=== PATIENT | female | born 1975 | race Caucasian/White ===

== ENCOUNTER 2023-05-20 06:54 | Outpatient (OUT) | payer OTHER, SELFPAY ==
[2023-05-20 07:40] LABS: Basophils Percent Auto 0.7 % (0.2-2.0); Eosinophils Absolute Auto 0.3 10^3/uL (0.0-0.7); Eosinophils Percent Auto 6.1 % (0.9-7.0); Hematocrit 38.4 % (36.0-48.0); Hemoglobin 12.1 g/dL (12.0-16.0); Immature Granulocytes Abs Auto 0.01 10^3/uL (0.00-0.03); Immature Granulocytes Pct Auto 0.2 % (0.0-0.5); Lymphocytes Absolute Auto 1.9 10^3/uL (1.2-3.8); Lymphocytes Percent Auto 44.8 % (20.5-60.0); Mean Corpuscular HGB Conc 31.5 g/dL (29.9-35.2); Mean Corpuscular Hemoglobin 27.6 pg (26.7-34.0); Mean Corpuscular Volume 87.5 fL (81.0-99.0); Monocytes Absolute Auto 0.4 10^3/uL (0.3-0.8); Monocytes Percent Auto 8.7 % (1.7-12.0); Neutrophils Absolute Auto 1.6 10^3/uL (1.4-6.5); Neutrophils Percent Auto 39.5 % (43.0-75.0); Platelet Count 226 10^3/uL (150-450); Red Blood Count 4.39 10^6/uL (4.20-5.40); Red Cell Distribution Width 13.2 % (11.0-15.0); White Blood Count 4.1 10^3/uL (4.0-11.0)
[2023-05-20 08:58] LABS: Alanine Aminotransferase 20 U/L (14-59); Albumin Globulin Ratio 1.1; Albumin Level 3.7 g/dL (3.4-5.0); Alkaline Phosphatase 91 U/L (46-116); Anion Gap 13.9; Aspartate Amino Transferase 18 U/L (15-37); BUN Creatinine Ratio 25.5; Bilirubin Total 0.5 mg/dL (0.2-1.0); Carbon Dioxide 26.3 mmol/L (21.0-32.0); Chloride 105 mmol/L (98-107); Chol HDL Ratio 2.5; Cholesterol 201 mg/dL (<=200); Estimated GFR (African America >60 (>=60); Estimated GFR (Non-African Ame >60 (>=60); Globulin 3.5 g/dL; Glucose 69 mg/dL (74-106); HDL Cholesterol 79 mg/dL (40-60); Potassium 4.2 mmol/L (3.5-5.1); Sodium 141 mmol/L (136-145); Thyroid Stimulating Hormone 2.513 uIU/mL (0.358-3.740); Total Protein 7.2 g/dL (6.4-8.2); Triglycerides 55 mg/dL (<=150)
[2023-05-23 14:16] LABS: Vitamin B1 (Thiamine), Blood 74.4 nmol/L (66.5-200.0)
== END 2023-05-20 06:55 | disposition home or self-care (01) ==
LOC: LAB 06:54
PROVIDERS: PCP Internal Medicine; Visit Provider Internal Medicine
DX: Z00.00 Encounter for general adult medical examination without abnormal findings (principal)
CPT/HCPCS: 36415; 80053; 80061; 82306; 82607; 82728; 84425; 84443; 85025

== ENCOUNTER 2023-08-25 12:52 | Outpatient (OUT) | payer OTHER, SELFPAY ==
--- NOTE | 2023-08-25 13:05 | US_ITS ---
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 Lobe size: 4.9 x 0.9 x 1.7 cm LEFT LOBE: Heterogeneous echotexture and contains a 15 mm TR 3 nodule within mid body and a 6 mm TR 4 nodule within inferior pole. Incidental colloid cyst within inferior pole. Lobe size: 5.6 x 1.6 x 2.1 cm ISTHMUS: Slightly heterogeneous echotexture. Thickness: 2 mm US/US thyroid IMPRESSION: 1. Heterogeneous echotexture with stable left lobe nodules. Consider follow-up imaging in one year. TR4 (moderately suspicious): If > 1.0 cm, follow-up ultrasound in 1, 2, 3, and 5 years. If > 1.5 cm, fine needle aspiration (FNA). TR3 (mildly suspicious): > 1.5 cm, follow-up ultrasound in 1, 3, and 5 years. > 2.5 cm, fine needle aspiration. Electronically authenticated by: LAURYN ARGUELLO Date: 08/26/2023 01:18
[2023-08-25 13:49] LABS: Free T4 1.25 ng/dL (0.76-1.46)
[2023-08-25 13:56] LABS: Thyroid Stimulating Hormone 1.566 uIU/mL (0.358-3.740)
[2023-08-26 08:11] LABS: Triiodothyronine (T3) 117 ng/dL (71-180)
== END 2023-08-25 12:53 | disposition home or self-care (01) ==
LOC: US 12:52
PROVIDERS: PCP Internal Medicine; Visit Provider Internal Medicine
DX: E07.9 Disorder of thyroid, unspecified (principal); E04.9 Nontoxic goiter, unspecified; E04.2 Nontoxic multinodular goiter
CPT/HCPCS: 36415; 76536; 84439; 84443; 84480

== ENCOUNTER 2024-01-04 10:41 | Emergency (ER) | payer OTHER, SELFPAY ==
[2024-01-04] VITALS (7 sets, daily range): BP systolic 141–185; BP diastolic 77–96; PULSE 66–81; TEMP 37; O2SAT 97–99; BMI 38.1
--- NOTE | 2024-01-04 10:52 | ECG_ITS ---
The [facility] Test Date: 2024-01-04 Pat Name: ARIANE WORTHINGTON Department: Room: - Gender: Female [employer]: : 1975 Requested By: JAMAR ARAGON Order Number: [id number] Reading MD: JAMAR ARAGON Measurements Intervals [place] Rate: 76 P: 55 [place]: 134 QRS: 49 QRSD: 88 T: 51 QT: 394 QTc: 425 Interpretive Statements 1100 Sinus rhythm 1575 with frequent ventricular premature complexes in a pattern of bigeminy 9140 abnormal rhythm ECG No previous ECG available for comparison Electronically Signed On 01-04-2024 23:09:58 EDT by JAMAR ARAGON
--- NOTE | 2024-01-04 10:52 | XR_ITS ---
The [address] [address] Patient Name: ARIANE WORTHINGTON MRN: [id number] date: 1975 Sex: F Assigned Patient Location: ER Current Patient Location: ER Accession/Order Number: [id number] Exam Date: 01/04/2024 11:00 Report Date: 01/04/2024 11:31 At the request of: MELVINA KAPOOR Procedure: XR chest 1V EXAMINATION: XR chest 1V HISTORY: CP COMPARISON: 07/28/2022 TECHNIQUE: AP portable FINDINGS: LUNGS: No significant pulmonary parenchymal abnormalities. VASCULATURE: No increased pulmonary vasculature. PLEURA: No pneumothorax, effusion, or pleural thickening. CARDIAC: No cardiomegaly or cardiac silhouette abnormality. MEDIASTINUM: No visible mass or adenopathy. BONES: No fracture or visible bone lesion. OTHER: Negative. XR/XR chest 1V IMPRESSION: No acute disease. Electronically authenticated by: HERO ESTRADA Date: 01/04/2024 11:31
--- NOTE | 2024-01-04 10:52 | ED.CHESTPAI1 ---
HPI - Chest Pain General Chief Complaint: Chest Pain Stated Complaint: SOB, CHEST PAIN Time Seen by Provider: 01/04/24 10:47 Source: patient Mode of arrival: walk-in Limitations: no limitations History of Present Illness HPI narrative: 48-year-old female presents for chest pain. She has had this pressure in the middle part of her chest continuously for 4 days. She was seen at another hospital emergency department yesterday and had an apparently negative workup. No injury or fever or cough but she does work a physical job. Related Data Home Medications ?Medication ?Instructions ?Recorded ?Confirmed brimonidine 0.2 % eye drops 1 drp ophthalmic (eye) Q8H 01/04/24 01/04/24 latanoprost 0.005 % eye drops 1 drp ophthalmic (eye) DAILY 01/04/24 01/04/24 venlafaxine 50 mg tablet 50 mg PO Q12H 01/04/24 01/04/24 Allergies Allergy/AdvReac Type Severity Reaction Status Date / Time morphine Allergy Severe Verified 01/04/24 10:47 Review of Systems ROS Narrative A ten point review of systems is negative except as noted above. Exam Narrative Exam Narrative: Nurses note and vital signs reviewed and patient is not hypoxic. General: The patient appears well and in no apparent distress. Patient is resting comfortably on cart. Skin: Warm, dry, no pallor noted. There is no rash noted. Head: Normocephalic, atraumatic Eye: Normal conjunctiva, no drainage Ears, Nose, Mouth, and Throat: oral mucosa is moist. Nares patent. Cardiovascular: Regular Rate and Rhythm Respiratory: Patient is in no distress, no accessory muscle use, lungs are clear to auscultation, no wheezing, rales or rhonchi Back: non-tender GI: Soft and nontender Musculoskeletal: The patient has no evidence of calf tenderness, no pitting edema, symmetrical pulses noted bilaterally Neurological: A&O, normal speech Psychiatric: Cooperative Constitutional Vital Signs, click to edit/add: Last Vital Signs Temp 98.6 F 01/04/24 11:06 Pulse 71 01/04/24 11:30 Resp 21 H 01/04/24 11:30 BP 141/85 01/04/24 11:30 Pulse Ox 98 01/04/24 11:30 O2 Del Method Room Air 01/04/24 10:48 Course Vital Signs Vital signs: Vital Signs Pulse Rate 81 01/04/24 10:48 Respiratory Rate 18 01/04/24 10:48 Blood Pressure 185/96 H 01/04/24 10:48 Pulse Oximetry 97 01/04/24 10:48 Oxygen Delivery Method Room Air 01/04/24 10:48 Temperature 98.6 F 01/04/24 11:06 Pulse Rate 71 01/04/24 11:30 Respiratory Rate 21 H 01/04/24 11:30 Blood Pressure 141/85 01/04/24 11:30 Pulse Oximetry 98 01/04/24 11:30 Oxygen Delivery Method Room Air 01/04/24 10:48 MDM - Chest Pain MDM Narrative Medical decision making narrative: Her workup here including CTA chest is negative. Case discussed with Dr. Gar and she will be discharged home, follow-up as an outpatient for further workup. Treatment diagnosis and follow-up were discussed with the patient. Differential Diagnosis Differential diagnosis: Likely pneumothorax, unstable angina pectoris, atypical chest pain, st elevation myocardial infarction, costochondritis and chest pain Lab Data Attestation: I reviewed the patient's lab results. Labs: Lab Results 01/04/24 Range/Units 10:55 WBC 6.1 (4.0-11.0) 10^3/uL RBC 4.64 (4.20-5.40) 10^6/uL Hgb 13.3 (12.0-16.0) g/dL Hct 41.3 (36.0-48.0) % MCV 89.0 (81.0-99.0) fL MCH 28.7 (26.7-34.0) pg MCHC 32.2 (29.9-35.2) g/dL RDW 12.6 (11.0-15.0) % Plt Count 235 (150-450) 10^3/uL MPV 10.5 (9.5-13.5) fL Neut % (Auto) 52.9 (43.0-75.0) % Lymph % (Auto) 35.9 (20.5-60.0) % [place] % (Auto) 5.9 (1.7-12.0) % Eos % (Auto) 4.4 (0.9-7.0) % Baso % (Auto) 0.7 (0.2-2.0) % Neut # (Auto) 3.3 (1.4-6.5) 10^3/uL Lymph # (Auto) 2.2 (1.2-3.8) 10^3/uL [place] # (Auto) 0.4 (0.3-0.8) 10^3/uL Eos # (Auto) 0.3 (0.0-0.7) 10^3/uL Baso # (Auto) 0.0 (0.0-0.1) 10^3/uL Abs Immat Gran (auto) 0.01 (0.00-0.03) 10^3/uL Imm/Tot Granulo (auto) 0.2 (0.0-0.5) % Sodium 142 (136-145) mmol/L Potassium 4.1 (3.5-5.1) mmol/L Chloride 107 (98-107) mmol/L Carbon Dioxide 27.1 (21.0-32.0) mmol/L Anion Gap 12.0 BUN 9.0 (7.0-18.0) mg/dL Creatinine 0.65 (0.55-1.02) mg/dL Est GFR ( Amer) >60 (>=60) Est GFR (Non-Af Amer) >60 (>=60) BUN/Creatinine Ratio 13.8 Glucose 78 (74-106) mg/dL Calcium 9.4 (8.5-10.1) mg/dL Troponin I High Sens 9.4 (4.0-51.3) pg/mL Imaging Data Chest x-ray: Radiologist's impression: ITS Impressions Chest X-Ray 01/04/24 10:52 IMPRESSION: No acute disease. Electronically authenticated by: HERO ESTRADA Date: 01/04/2024 11:31 Chest CTA 01/04/24 11:29 IMPRESSION: 1. No pulmonary embolism. Electronically authenticated by: LENNIE VALERA Date: 01/04/2024 12:24 ECG Data Attestation: I personally reviewed and interpreted this ECG as follows: (EKG on my interpretation shows sinus rhythm with PVCs, bigeminy) Heart Score History: Moderately Suspicious ECG: Normal Age: >45-<65 years Risk Factors: 1 or 2 Risk Factors Troponin: <Normal Limit Total Heart Score Recommendations & Risks:: 3 Discharge Plan Discharge Stand Alone Forms: Portal Instructions Chief Complaint: Chest Pain Clinical Impression: Chest pain Patient Disposition: Home, Self-Care Time of Disposition Decision: 12:33 Condition: Good Mode of Transportation: Private Vehicle Prescriptions / Home Meds: No Action brimonidine 0.2 % drops 1 drp OPHTHALMIC (EYE) Q8H latanoprost 0.005 % drops 1 drp OPHTHALMIC (EYE) DAILY venlafaxine 50 mg tablet 50 mg PO Q12H Print Language: Italian Instructions: Chest Pain (ED) Referrals: Gilles Gar DO [Primary Care Provider] - 1 week
--- NOTE | 2024-01-04 11:02 | PC.NURSE ---
centered chest pain since wednesday constantly. Was evaluated in [place] ER yesterday for this and was found to have nothing wrong. Per pt, she got labs done, EKG and chest XR. Today she saw her PCP, Dr Gar, who ordered an outpt Chest CT but is waiting for insurance to approve. Pt also feels some SOB with the chest pain. 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
[2024-01-04 11:11] LABS: Basophils Percent Auto 0.7 % (0.2-2.0); Eosinophils Absolute Auto 0.3 10^3/uL (0.0-0.7); Eosinophils Percent Auto 4.4 % (0.9-7.0); Hematocrit 41.3 % (36.0-48.0); Hemoglobin 13.3 g/dL (12.0-16.0); Immature Granulocytes Abs Auto 0.01 10^3/uL (0.00-0.03); Immature Granulocytes Pct Auto 0.2 % (0.0-0.5); Lymphocytes Absolute Auto 2.2 10^3/uL (1.2-3.8); Lymphocytes Percent Auto 35.9 % (20.5-60.0); Mean Corpuscular HGB Conc 32.2 g/dL (29.9-35.2); Mean Corpuscular Hemoglobin 28.7 pg (26.7-34.0); Mean Platelet Volume 10.5 fL (9.5-13.5); Monocytes Absolute Auto 0.4 10^3/uL (0.3-0.8); Monocytes Percent Auto 5.9 % (1.7-12.0); Neutrophils Absolute Auto 3.3 10^3/uL (1.4-6.5); Neutrophils Percent Auto 52.9 % (43.0-75.0); Platelet Count 235 10^3/uL (150-450); Red Blood Count 4.64 10^6/uL (4.20-5.40); Red Cell Distribution Width 12.6 % (11.0-15.0); White Blood Count 6.1 10^3/uL (4.0-11.0)
--- NOTE | 2024-01-04 11:29 | CT_ITS ---
The [address] [address] Patient Name: ARIANE WORTHINGTON MRN: [id number] date: 1975 Sex: F Assigned Patient Location: ER Current Patient Location: ER Accession/Order Number: [id number] Exam Date: 01/04/2024 11:35 Report Date: 01/04/2024 12:24 At the request of: MELVINA KAPOOR Procedure: CT angio chest EXAM: CT angio chest HISTORY: CP, SOB COMPARISON: None. TECHNIQUE: Following intravenous administration of 98 cc of Omnipaque 350, axial soft tissue and lung windows of the chest were performed with coronal and sagittal reformats. 3-D MIPS reconstructions were created and reviewed. CT dose reduction technique was used including Automated Exposure Control. Findings: The heart is not significantly enlarged. There are coronary artery calcifications. No pericardial effusion. The thoracic aorta is normal caliber. There is adequate opacification of the pulmonary arteries. No evidence of pulmonary embolism. There is a small diverticulum off the right posterior lateral wall the distal trachea. The central airways are patent. No pneumothorax. No pleural effusion. No focal consolidation. No enlarged mediastinal, hilar, axillary or supraclavicular lymph nodes. Postsurgical changes consistent with gastric bypass. No aggressive sclerotic or lytic osseous lesions. Mild multilevel degenerative thoracic spondylosis. CT/CT angio chest IMPRESSION: 1. No pulmonary embolism. Electronically authenticated by: LENNIE VALERA Date: 01/04/2024 12:24
[2024-01-04 11:41] LABS: BUN Creatinine Ratio 13.8; Calcium 9.4 mg/dL (8.5-10.1); Carbon Dioxide 27.1 mmol/L (21.0-32.0); Chloride 107 mmol/L (98-107); Estimated GFR (African America >60 (>=60); Estimated GFR (Non-African Ame >60 (>=60); Glucose 78 mg/dL (74-106); Potassium 4.1 mmol/L (3.5-5.1); Sodium 142 mmol/L (136-145); Troponin I High Sensitivity 9.4 pg/mL (4.0-51.3)
== END 2024-01-04 12:40 | disposition home or self-care (01) ==
PROVIDERS: Emergency Provider Emergency Medicine; PCP Internal Medicine
DX: R07.9 Chest pain, unspecified (principal); Z79.899 Other long term (current) drug therapy
CPT/HCPCS: 36415; 71045; 71275; 80048; 84484; 85025; 93005; 99285; Q9967

== ENCOUNTER 2024-01-18 13:56 | Outpatient (OUT) | payer OTHER, SELFPAY ==
--- NOTE | 2024-01-18 14:00 | CA_ITS ---
Patient Name: ARIANE WORTHINGTON MR#: [id number] : 1975 Exam Date: 01/18/2024 Ordering Doctor: DR Gilles Gar D.O. ECHOCARDIOGRAM REPORT PROCEDURE: CA ECHO DOPPLER COMPLETE INDICATIONS: Chest pain, dyspnea COMPARISON: None. DESCRIPTION: COMPLETE ECHOCARDIOGRAM Real-time transthoracic echocardiography with 2D, M-mode, spectral and color flow Doppler performed. QUALITY: Technical quality was good. 64 , 215#, BSA 2.02 m2, BP 104/80 LEFT VENTRICLE: Normal chamber size. Normal left ventricular wall thickness. LV EF: Global left ventricular systolic function is normal; visually estimated ejection fraction is 60 to 65% DIASTOLIC: Normal diastolic function. ATRIAL SEPTUM: Visually appears intact. LEFT ATRIUM: Normal chamber size. RIGHT ATRIUM: Normal chamber size. RIGHT VENTRICLE: Normal chamber size. Normal right ventricular systolic function. TRICUSPID VALVE: Normal mobility and thickness. No stenosis with no regurgitation. Unable to assess right-sided pressures due to lack of measurable tricuspid regurgitation. MITRAL VALVE: Normal mobility and thickness. No evidence of mitral valve stenosis. There is no mitral annular calcification. Trivial mitral regurgitation. AORTIC VALVE: Normal trileaflet appearance. No visible sclerosis. Normal leaflet mobility. No evidence of aortic valve stenosis. No aortic regurgitation. AORTIC ROOT: Normal diameter and appearance. Ascending aorta is normal in size. PULMONIC VALVE: Normal thickness and mobility. No stenosis. PERICARDIUM: No evidence of pericardial effusion. IVC: Collapses with inspirations. CONCLUSION: 1. Global left ventricular systolic function is normal; visually estimated ejection fraction is 60 to 65% 2. Normal right ventricular size and systolic function 3. Normal diastolic function 4. No significant valvular abnormalities Adult Echocardiography Procedure Report Left Ventricle LVEDD (3.7 - 5.6 cm): 5.16 cm LVESD (2.2 - 4.0 cm): 3.47 cm LVIVS thickness (0.6 - 1.2 cm): 1.11 cm LVPW thickness (0.5 - 1.0 cm): 0.98 cm E - e': 5.34 LVOT Max Gradient: 5.07 mm[Hg] LVOT Area (cm2): 1.13 m/s Peak Velocity (LVOT): 1.13 m/s LVOT Diameter 2.31 cm Left Atrium LA Volume Index (2D A2C): 29.02 ml/m2 Left Atrium Systolic Dimension: 4.55 cm Mitral Valve MV E to A Ratio: 0.89 Mitral Valve A-Wave Peak Velocity: 0.90 m/s Mitral Valve E-Wave Peak Velocity: 0.80 m/s Right Ventricle Aorta AO Root Diam: 2.82 cm Ascending Ao Diam: 2.41 cm Aortic Valve AoV Area (Peak Delvin): 2.88 cm2, 2.88 cm2 Peak Velocity(Antegrade Flow): 1.65 m/s Peak Gradient(Antegrade Flow): 10.86 mm[Hg] Tricuspid Valve Pulmonic Valve Mean Gradient: 5.54 mm[Hg], 4.96 mm[Hg], 5.95 mm[Hg] Mean Velocity: 1.13 m/s, 1.06 m/s, 1.17 m/s Peak Gradient: 8.30 mm[Hg], 8.30 mm[Hg], 9.69 mm[Hg] Right Atrium Right Atrium Systolic Pressure: 51.01 ml, 51.01 ml Dictated by: Kofi Landry M.D. on 01/20/2024 at 15:17 Approved by: Kofi Landry M.D. on 01/20/2024 at 15:25
== END 2024-01-18 13:57 | disposition home or self-care (01) ==
LOC: CARD 13:57
PROVIDERS: PCP Internal Medicine; Visit Provider Internal Medicine
DX: R07.9 Chest pain, unspecified (principal); R06.00 Dyspnea, unspecified; I49.3 Ventricular premature depolarization; I42.9 Cardiomyopathy, unspecified
CPT/HCPCS: 93306

== ENCOUNTER 2024-07-29 08:05 | Outpatient (OUT) | payer OTHER, SELFPAY ==
--- OUTSIDE RECORDS SUMMARY | 2024-07-29 08:08 | XMS_ITS | CCD ---
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 Ventricle LVEDD (3.7 - 5.6 cm): 4.83 cm LVESD (2.2 - 4.0 cm): 3.47 cm LVIVS thickness (0.6 - 1.2 cm): 1.06 cm LVPW thickness (0.5 - 1.0 cm): 1.02 cm e': 10.50 cm/s E - e': 11.50 LVOT Area (cm2): 3.80 cm2 LVOT Diameter 2.20 cm Left Ventricular Ejection Fraction: 65-70% Left Atrium LA Volume Index (2D A2C): 42.80 ml/m2 Left Atrium Systolic Dimension: 4.70 cm Left Atrium Systolic Area(A2C): 24.50 cm2 Left Atrium Systolic Area(A4C): 27.70 cm2 Left Atrium Systolic Volume(A2C): 22296 mm3 Left Atrium Systolic Volume(A4C): 74072 mm3 Mitral Valve MV E to A Ratio: 1.50 Deceleration Cole: 6640 mm/s2 Mitral Valve A-Wave Peak Velocity: 81.90 cm/s Mitral Valve E-Wave Peak Velocity: 121.00 cm/s Right Ventricle RV Internal Diastolic Dimension: 3.54 cm Aorta AO Root Diam: 2.80 cm Aortic Valve AoV Area (Peak Delvin): 3.30 cm2 Aortic Valve Cusp Separation: 1.90 cm Peak Velocity(Antegrade Flow): 144.00 cm/s Peak Gradient(Antegrade Flow): 8 mm[Hg] Tricuspid Valve Peak Velocity (Regurgitant Flow): 197.00 cm/s, 204.00 cm/s Pulmonic Valve Peak Velocity: 97.50 cm/s Peak Gradient: 4 mm[Hg] Right Atrium Dictated by: Dandre rGay M.D. on 12/18/2021 at 18:23 Approved by: Dandre Gray M.D. on 12/18/2021 at 18:32 Normal [facility] US THYROIDon 12-13-2021 US THYROID EXAMINATION: US THYROID HISTORY: Non-toxic uninodular goiter COMPARISON: No relevant comparison available. TECHNIQUE: Sonographic images of the thyroid gland were obtained. FINDINGS: The right thyroid lobe is normal in size, contour and homogeneous echotexture measuring 5.0 x 1.4 x 1.3 cm. No focal nodule. The thyroid isthmus is thickened measuring 4.9 mm. Heterogeneous echotexture with no nodule The left thyroid lobe is normal in size measuring 5.3 x 1.7 x 1.7 cm. Heterogeneous echotexture with a single nodule over 5 mm Nodule 1: Mid lobe. 1.5 1.0 x 0.7 cm. Solid, isoechoic, wide, smooth margins, no calcifications. TR 3 IMPRESSION: 1.5 cm left thyroid TR 3 nodule. 1 year follow-up recommended TI-RADS: The [employer] TI-RADS committee's white paper recommendations for thyroid lesions classified as TR3 (mildly suspicious) are listed below: > 1.5 cm. Follow-up ultrasound in 1, 3, and 5 years. > 2.5 cm. FNA. J. Am Klever Radiol 2017;14:587-595. Electronically authenticated by: HERO ESTRADA Date: 2021-12-13 15:29 Normal [facility] TSHon 12-12-2021 TSH 2.082 uIU/mL Normal 0.470-4.680 [facility] Comment on above: Performed By: #### V ITAD, VITB12, FERR, FETIBC #### [facility] [address] [address] [address] Kriss Price TSH RANGE SEE BELOW Normal [facility] Comment on above: Result Comment: <0.3 4 UIU/ml HYPERTHYROID 0.34-5.60 UIU/ml EUTHYROID >5.60 UIU/ml HYPOTHYROID Performed By: #### V ITAD, VITB12, FERR, FETIBC #### [facility] [address] [address] [address] Kriss Price VITAMIN B12on 12-12-2021 Cobalamin (Vitamin B12) [Mass/Vol] pg/mL Critically high 239.0-931.0 [facility] Comment on above: Performed By: #### V ITAD, VITB12, FERR, FETIBC #### [facility] [address] [address] [address] Kriss Price MRI BRAIN WO CONTRASTon 11-18 1. Minimal nonspecific FLAIR signal abnormalities of the subcortical white matter, compatible with small vessel ischemic changes. No periventricular white matter signal abnormalities to suggest demyelinating disorder. 2. No acute infarct, mass effect, or hemorrhage. [facility] EXAM: MRI BRAIN WO CONTRAST HISTORY: Left facial tingling and numbness, headaches. COMPARISON: CT angiogram of the head 12/04/2021. TECHNIQUE: Multiplanar, multisequence MR imaging of the head was performed without intravenous contrast. FINDINGS: No restricted diffusion. No acute hemorrhage, mass effect, midline shift, or extra-axial fluid collection. No ventriculomegaly. Expected flow voids are noted within the intracranial internal carotid, vertebral, and basilar arteries. The cerebellopontine angles and internal auditory canals are unremarkable. Pituitary gland and midline structures are unremarkable. Bone marrow signal is within normal limits. The orbits and globes are unremarkable. Expected signal voids are seen within the paranasal sinuses and mastoid air cells. Minimal scattered punctate foci of increased FLAIR signal are seen within the subcortical white matter. [facility] Hero De Leon MD - 12/05/2021 EXAM: MRI BRAIN WO CONTRAST HISTORY: Left facial tingling and numbness, headaches. COMPARISON: CT angiogram of the head 12/04/2021. TECHNIQUE: Multiplanar, multisequence MR imaging of the head was performed without intravenous contrast. FINDINGS: No restricted diffusion. No acute hemorrhage, mass effect, midline shift, or extra-axial fluid collection. No ventriculomegaly. Expected flow voids are noted within the intracranial internal carotid, vertebral, and basilar arteries. The cerebellopontine angles and internal auditory canals are unremarkable. Pituitary gland and midline structures are unremarkable. Bone marrow signal is within normal limits. The orbits and globes are unremarkable. Expected signal voids are seen within the paranasal sinuses and mastoid air cells. Minimal scattered punctate foci of increased FLAIR signal are seen within the subcortical white matter. IMPRESSION: 1. Minimal nonspecific FLAIR signal abnormalities of the subcortical white matter, compatible with small vessel ischemic changes. No periventricular white matter signal abnormalities to suggest demyelinating disorder. 2. No acute infarct, mass effect, or hemorrhage. [employer] Work Phone: Radiology Study observation (narrative) [employer] Phone: MRI BRAIN WO CONTRASTOrdered By: Hero De Leon on 12-05-2021 [employer] Work Phone: CBC with Auto Differentialon 12-04-2021 Absolute Eos # 0.20 [facility] Absolute Lymph # 2.50 [employer] He alth Absolute [place] # 0.50 [employer] a lth Basophils (Bld) [#/Vol] 0.00 10*3/uL [facility] Basophils/100 WBC (Bld) 1 % 0 - 2 % [facility] Differential Type YES [facility] ealth Eosinophils/100 WBC (Bld) 4 % 0 - 5 % [facility] Hematocrit (Bld) [Volume fraction] 40.5 % 36 - 46 % [facility] Hemoglobin.gastroin testinal spec 1 Ql (Stl) 13.7 g/dL 12.0 - 16.0 g/dL [facility] Interpretation and review of laboratory results Abnormal [facility] Lymphocytes/100 WBC (Bld) 44 % High 15 - 40 % [facility] MCH (RBC) [Entitic mass] 29.2 pg 26 - 34 pg [facility] MCHC (RBC) [Mass/Vol] 33.9 g/dL 31 - 37 g/dL [facility] MCV (RBC) [Entitic vol] 86.2 fL 80 - 100 fL [facility] Monocytes/100 WBC (Bld) 8 % 4 - 8 % [facility] Platelet distribution width (Bld) [Ratio] 13.4 % 12.1 - 15.2 % [facility] Platelets (Bld) [#/Vol] 232 10*3/uL [facility] RBC (Bld) [#/Vol] 4.70 10*6/uL 4.0 - 5.2 m/uL [facility] Segmented neutrophils/100 WBC (Bld) 43 % Low 47 - 75 % [facility] Segs Absolute 2.50 [facility] WBC (Bld) [#/Vol] 5.7 10*3/uL [facility] CT Head WO Contraston [address] These results were called by Dr. Lauryn Scott to [place] Ramirez At 12/04/2021 10:37 PM EDT. [facility] EXAMINATION: CT HEAD WO CONTRAST STROKE, 12/04/2021 10:24 PM EDT HISTORY: Reason for exam:->left facial and LUE numbness, NIH 1 COMPARISON: None. TECHNIQUE: CT scan of the head was performed without IV contrast. CT dose reduction technique was used, including Automated Exposure Control. FINDINGS: BRAIN PARENCHYMA/CSF SPACES: Ventricles are normal in size for age. There is no hemorrhage, mass effect or midline shift. There are no other significant findings. PARANASAL SINUSES: Clear. SKULL BASE AND CALVARIUM: Normal. EXTRACRANIAL SOFT TISSUES: Normal. [facility] Lauryn Scott MD - 12/04/2021 EXAMINATION: CT HEAD WO CONTRAST STROKE, 12/04/2021 10:24 PM EDT HISTORY: Reason for exam:->left facial and LUE numbness, NIH 1 COMPARISON: None. TECHNIQUE: CT scan of the head was performed without IV contrast. CT dose reduction technique was used, including Automated Exposure Control. FINDINGS: BRAIN PARENCHYMA/CSF SPACES: Ventricles are normal in size for age. There is no hemorrhage, mass effect or midline shift. There are no other significant findings. PARANASAL SINUSES: Clear. SKULL BASE AND CALVARIUM: Normal. EXTRACRANIAL SOFT TISSUES: Normal. IMPRESSION: Normal noncontrast head CT. These results were called by Dr. Lauryn Scott to [place] Ramirez At 12/04/2021 10:37 PM EDT. [employer] Phone: Radiology Study observation (narrative) [employer] Phone: CT Head WO ContrastOrdered B y: Lauryn Scott on 12-04-2021 [employer] Phone: CTA HEAD NECK W CONTRASTon 0 12-04-2021 No large vessel occlusion or significant intracranial stenosis. Dural venous sinuses are patent. Carotids and vertebral arteries show no significant stenosis or dissection. A 1.0 cm slightly low attenuated nodule in the left thyroid lobe. [facility] EXAM: CTA HEAD NECK W CONTRAST HISTORY: Left facial numbness and left upper extremity numbness. COMPARISON: Head CT without contrast on 12/04/2021. TECHNIQUE: Following IV administration of iodinated contrast, axial CT scans of the head and neck were obtained. MPR and MIP images images were obtained. Carotid stenosis is based on NASCET criteria. Dose reduction techniques were achieved by using automated exposure control and/or adjustment of mA and/or kV according to patient size and/or use of iterative reconstruction technique. FINDINGS: CTA OF THE HEAD: No major branch occlusion or significant intracranial stenosis. No aneurysm. Dural venous sinuses are patent. CTA OF THE NECK: A 1.0 cm slightly low attenuated nodule in the left thyroid lobe. No adenopathy in the neck. The visualized lungs are clear. Osseous structures are intact. Aortic arch shows no aneurysm. The great vessels of the aortic arch show no significant stenosis. Vertebral arteries show no significant stenosis or dissection. Common carotids and internal carotids show no significant stenosis or dissection. [facility] Trav Guardado MD - 12/04/2021 EXAM: CTA HEAD NECK W CONTRAST HISTORY: Left facial numbness and left upper extremity numbness. COMPARISON: Head CT without contrast on 12/04/2021. TECHNIQUE: Following IV administration of iodinated contrast, axial CT scans of the head and neck were obtained. MPR and MIP images images were obtained. Carotid stenosis is based on NASCET criteria. Dose reduction techniques were achieved by using automated exposure control and/or adjustment of mA and/or kV according to patient size and/or use of iterative reconstruction technique. FINDINGS: CTA OF THE HEAD: No major branch occlusion or significant intracranial stenosis. No aneurysm. Dural venous sinuses are patent. CTA OF THE NECK: A 1.0 cm slightly low attenuated nodule in the left thyroid lobe. No adenopathy in the neck. The visualized lungs are clear. Osseous structures are intact. Aortic arch shows no aneurysm. The great vessels of the aortic arch show no significant stenosis. Vertebral arteries show no significant stenosis or dissection. Common carotids and internal carotids show no significant stenosis or dissection. IMPRESSION: No large vessel occlusion or significant intracranial stenosis. Dural venous sinuses are patent. Carotids and vertebral arteries show no significant stenosis or dissection. A 1.0 cm slightly low attenuated nodule in the left thyroid lobe. [employer] Work Phone: Radiology Study observation (narrative) [facility] Work Phone: CTA HEAD NECK W CONTRASTOrde red By: Trav Guardado on 12-04-2021 [employer] Work Phone: Comprehensive Metabolic Pane l w/ Reflex to MGon 12-04-2021 Albumin [Mass/Vol] 4.5 g/dL 3.5 - 5.2 g/dL [facility] ALP (Bld) [Catalytic activity/Vol] 81 U/L 35 - 104 U/L [facility] ALT [Catalytic activity/Vol] 13 U/L 5 - 33 U/L [facility] Anion gap [Moles/Vol] 10 mmol/L 9 - 17 mmol/L [facility] AST [Catalytic activity/Vol] 23 U/L <32 [facility] Bilirubin [Mass/Vol] 0.38 mg/dL 0.30 - 1.20 mg/dL [facility] Calcium [Mass/Vol] 9.6 mg/dL 8.6 - 10. 4 mg/dL [facility] Chloride [Moles/Vol] 105 mmol/L 98 - 107 mmol/L [facility] CO2 [Moles/Vol] 24 mmol/L 20 - 31 mmol/L [facility] Creatinine [Mass/Vol] 0.58 mg/dL 0.50 - 0.90 mg/dL [facility] Free PSA/Total PSA [Mass fraction] 6.9 g/dL 6.4 - 8.3 g/dL [facility] GFR >60 >60 mL/min [facility] GFR Non- >60 >60 mL/min [facility] GFR/1.73 sq M.predicted MDRD (S/P/Bld) [Vol rate/Area] [facility] Comment on above: Average GFR for 40-4 9 years old: 99 mL/min/1.73sq m Chronic Kidney Disease: <60 mL/min/1.73sq m Kidney failure: <15 mL/min/1.73sq m eGFR calculated using average adult body mass. Additional eGFR calculator available at: http://www.globalrph.com/multiple_crcl_2012.htm Glucose [Mass/Vol] 86 mg/dL 70 - 99 mg/dL [facility] Interpretation and review of laboratory results Abnormal [facility] Potassium [Moles/Vol] 4.4 mmol/L 3.7 - 5.3 mmol/L [facility] Sodium [Moles/Vol] 139 mmol/L 135 - 144 mmol/L [facility] Urea nitrogen (BldV) [Mass/Vol] 16 mg/dL 6 - 20 mg/dL [facility] Urea nitrogen/Creatinine (Bld) [Mass ratio] 28 High [employer] Glucose, Whole Bloodon 12-04 Glucose [Mass/Vol] 79 mg/dL 65 - 99 mg/dL [employer] POCT glucoseon 12-04-2021 Glucose [Mass/Vol] 79 mg/dL [facility] Work Phone: Interpretation and review of laboratory results Normal [facility] Work Phone: QC OK? ok [facility] Work Phone: [employer] Phone: Troponinon 12-04-2021 Troponin, High Sensitivity <6 0 - 14 ng/L [facility] Comment on above: High Sensitivity Troponin values cannot be compared with other Troponin methodologies. Patients with high levels of Biotin oral intake (i.e >5mg/day) may have falsely decreased Troponin levels. Samples collected within 8 hours of biotin intake may require additional information for diagnosis. [facility] VIT D 25-OH LABCORPon 2020 Vitamin D, 25-Hydroxy 28.3 ng/mL Critically low 30.0-100.0 [facility] Comment on above: Result Comment: Loren min D deficiency has been defined by the [place] of [employer] and an Endocrine Society practice guideline as a level of serum 25-OH vitamin D less than 20 ng/mL (1,2). The Endocrine Society went on to further define vitamin D insufficiency as a level between 21 and 29 ng/mL (2). 1. IOM ([place] of Medicine). 2010. Dietary reference intakes for calcium and D. [place]: The National Academies Press. 2. Kristin JASSO, Heidi AGUILAR, Martha SCHUMACHER, et al. Evaluation, treatment, and prevention of vitamin D deficiency: an Endocrine Society clinical practice guideline. JCEM. 2010; 96(7):1911-30. Performed By: #### V ITAD, VITB12, FERR, FETIBC #### [facility] [address], [place] [address] Dr. Kriss Price VITAMIN B12on 09-10-2021 Cobalamin (Vitamin B12) [Mass/Vol] 1445 pg/mL Critically high 232-1245 [facility] Comment on above: Performed By: #### V B12LC #### [facility] [address], [place] [address] Dr. Kriss Price RENAL COMPLETEOrdered By: Gilles Gar on 01-08-2021 Unremarkable ultrasound of the kidneys 23 cc residual urine within the bladder on postvoiding images. [employer] Phone: EXAMINATION: RETROPERITONEAL ULTRASOUND OF THE KIDNEYS AND URINARY BLADDER 01/08/2021 COMPARISON: March 23, 2020 CT abdomen pelvis HISTORY: ORDERING SYSTEM PROVIDED HISTORY: Dorsalgia FINDINGS: Kidneys: The right kidney measures 11.4 x 4.7 x 5.7 cm with 8.4 mm cortex and the left kidney measures 11.0 x 4.8 x 5.2 cm with 6.3 mm cortex Kidneys demonstrate normal cortical echogenicity. No evidence of hydronephrosis or intrarenal stones. Bladder: Unremarkable bladder wall with 173 cc prevoid volume 23 cc postvoid volume. No definite intraluminal filling defects [employer] Phone: Fernando, pn Incoming Radiant Results From [employer] - 01/08/2021 2:12 PM EDT EXAMINATION: RETROPERITONEAL ULTRASOUND OF THE KIDNEYS AND URINARY BLADDER 01/08/2021 COMPARISON: March 23, 2020 CT abdomen pelvis HISTORY: ORDERING SYSTEM PROVIDED HISTORY: Dorsalgia FINDINGS: Kidneys: The right kidney measures 11.4 x 4.7 x 5.7 cm with 8.4 mm cortex and the left kidney measures 11.0 x 4.8 x 5.2 cm with 6.3 mm cortex Kidneys demonstrate normal cortical echogenicity. No evidence of hydronephrosis or intrarenal stones. Bladder: Unremarkable bladder wall with 173 cc prevoid volume 23 cc postvoid volume. No definite intraluminal filling defects IMPRESSION: Unremarkable ultrasound of the kidneys 23 cc residual urine within the bladder on postvoiding images. [facility] [employer] Work Phone: CBC Auto Differentialon - Basophils (Bld) [#/Vol] 10*3/uL [place] Basophils/100 WBC (Bld) 0 % 0 - 2 % [place] Differential Type NOT REPORTED [place] Eosinophils (Bld) [#/Vol] 0.14 10*3/uL [place] Eosinophils/100 WBC (Bld) 3 % 1 - 4 % [place] Erythrocyte distribution width (RBC) [Ratio] 13.1 % 11.8 - 14.4 % [place] Hematocrit (Bld) [Volume fraction] 44.3 % 36.3 - 47.1 % [place] Hemoglobin (Bld) [Mass/Vol] 14.0 g/dL 11.9 - 15.1 g/dL [place] Immature granulocytes (Bld) [#/Vol] 10*3/uL [place] Immature granulocytes (Bld) [#/Vol] 0 % 0 [place] Lymphocytes (Bld) [#/Vol] 1.96 10*3/uL [place] Lymphocytes/100 WBC (Bld) 40 % 24 - 43 % [place] MCH (RBC) [Entitic mass] 28.5 pg 25.2 - 33.5 pg [place] MCHC (RBC) [Mass/Vol] 31.6 g/dL 28.4 - 34.8 g/dL [place] MCV (RBC) [Entitic vol] 90.0 fL 82.6 - 102.9 fL [place] Monocytes (Bld) [#/Vol] 0.29 10*3/uL [place] Monocytes/100 WBC (Bld) 6 % 3 - 12 % [place] Platelet mean volume (Bld) [Entitic vol] 11.5 fL 8.1 - 13.5 fL [place] Platelets (Bld) [#/Vol] 221 10*3/uL [place] Platelets (Bld) [#/Vol] NOT REPORTED [place] RBC (Bld) [#/Vol] 4.92 10*6/uL 3.95 - 5.1 1 m/uL [place] RBC morphology finding Nom (Bld) NOT REPORTED [place] Segmented neutrophils/100 WBC (Bld) 51 % 36 - 65 % [place] Segs Absolute 2.46 [place] WBC (Bld) [#/Vol] 4.9 10*3/uL [place] WBC (Bld) [#/Vol] 0.0 10*3/uL 0.0 per 10 0 WBC [place] WBC Morphology NOT REPORTED [place] Comprehensive Metabolic Pane shelley 09-17-2020 Albumin [Mass/Vol] 4.4 g/dL 3.5 - 5.2 g/dL [place] Albumin/Globulin [Mass ratio] 1.5 {ratio} [place] ALP [Catalytic activity/Vol] 74 U/L 35 - 104 U/L [place] ALT [Catalytic activity/Vol] 18 U/L 5 - 33 U/L [place] Anion gap [Moles/Vol] 10 mmol/L 9 - 17 mmol/L [place] AST [Catalytic activity/Vol] 21 U/L <32 [place] Bilirubin Ql (U) 0.63 mg/dL 0.3 - 1.2 mg/dL [place] Bun/Cre Ratio 23 [place] Calcium [Mass/Vol] 9.7 mg/dL 8.6 - 10. 4 mg/dL [place] Chloride [Moles/Vol] 102 mmol/L 98 - 107 mmol/L [place] CO2 [Moles/Vol] 28 mmol/L 20 - 31 mmol/L [place] Creatinine [Mass/Vol] 0.52 mg/dL 0.5 - 0.9 mg/dL [place] GFR >60 >60 mL/min [place] GFR Non- >60 >60 mL/min [place] Glucose [Mass/Vol] 83 mg/dL 70 - 99 mg/dL [place] Interpretation and review of laboratory results Abnormal [place] Potassium [Moles/Vol] 3.9 mmol/L 3.7 - 5.3 mmol/L [place] Protein [Mass/Vol] 7.3 g/dL 6.4 - 8.3 g/dL [place] Sodium [Moles/Vol] 140 mmol/L 135 - 144 mmol/L [place] Urea nitrogen [Mass/Vol] 12 mg/dL 6 - 20 mg/dL [place] Folateon 09-17-2020 Folate 15.3 ng/mL >4.8 [place] Hemoglobin A1Con 09-17-2020 Glucose [Mass/Vol] 97 mg/dL [place] Comment on above: The ADA and AACC rec ommend providing the estimated average glucose result to permit better patient understanding of their HBA1c result. HbA1c (Bld) [Mass fraction] 5.0 % 4 - 6 % [place] Iron and TIBCon 09-17-2020 Iron [Mass/Vol] 97 ug/dL 37 - 145 ug/dL [place] Iron Saturation 27 % 20 - 55 % [place] TIBC 362 ug/dL 250 - 450 ug/dL [place] UIBC 265 ug/dL 112 - 347 ug/dL [place] Lipid Panelon 09-17-2020 Cholesterol [Mass/Vol] 195 mg/dL <200 [place] Comment on above: Cholesterol Guidelines: <200 Desirable 200-240 Borderline >240 Undesirable Cholesterol in HDL [Mass/Vol] 66 mg/dL >40 [place] Comment on above: HDL Guidelines: <40 Undesirable 40-59 Borderline >59 Desirable Cholesterol in LDL [Mass/Vol] 109 mg/dL 0 - 130 mg/dL [place] Comment on above: LDL Guidelines: <100 Desirable 100-129 Near to/above Desirable 130-159 Borderline >159 Undesirable Direct (measured) LDL and calculated LDL are not interchangeable tests. Cholesterol in VLDL [Mass/Vol] NOT REPORTED 1 - 30 mg/dL [place] Cholesterol.total/C holesterol in HDL [Mass ratio] 3 {ratio} <5 [place] Triglyceride [Mass/Vol] 102 mg/dL <150 [place] Comment on above: Triglyceride Guidelines: <150 Desirable 150-199 Borderline 200-499 High >499 Very high Based on AHA Guidelines for fasting triglyceride, June 2012. Metabolic Panelon 09-17-2020 GFR/1.73 sq M predicted among non-blacks MDRD (S/P/Bld) [Vol rate/Area] [place] Comment on above: Stage 1: Some kidney damage normal GFR Stage 2: Mild kidney damage GFR 60-89 Stage 3: Moderate kidney damage GFR 30-59 Stage 4: Severe kidney damage GFR 15-29 Stage 5: Severe kidney damage GFR <15 ESRD - chronic treatment by dialysis or transplant Average GFR for 40-4 9 years old: 99 mL/min/1.73sq m Chronic Kidney Disease: <60 mL/min/1.73sq m Kidney failure: <15 mL/min/1.73sq m eGFR calculated using average adult body mass. Additional eGFR calculator available at: http://www.MideoMe/multiple_crcl_2012.htm PTH, [place] 09-17-2020 Pth Intact 43.71 pg/mL 15 - 65 pg/mL [place] Comment on above: SAMPLES FROM PATIENT S ROUTINELY RECEIVING HIGH DOSE BIOTIN THERAPY MAY SHOW FALSELY DEPRESSED RESULTS. ADDITIONAL INFORMATION MAY BE REQUIRED FOR DIAGNOSIS. TSH without Reflexon 020 TSH Qn 2.36 m[IU]/L [place] Vitamin B12on 09-17-2020 Cobalamin (Vitamin B12) [Mass/Vol] 277 pg/mL 232 - 1245 pg/mL [place] Vitamin D 25 Hydroxyon 09-17 Vit D, 25-Hydroxy 36.9 ng/mL 30 - 100 ng/mL [place] Comment on above: Reference Range: Vitamin D status Range Deficiency <20 ng/mL Mild Deficiency 20-30 ng/mL Sufficiency 30-100 ng/mL Toxicity >100 ng/mL PROGRESSon 04-08-2020 PROGRESS HNO ID: [id number] Author: Daniella Roche Service: ? Author Type: Nurse Practitioner Type: Progress Notes Filed: 04/08/2020 3:55 PM Note Text: Name: Ariane Sanchez returns today for 1 year post op follow up. Patient was driving during today's virtual visit. Since her last visit she had to undergo an urgent hysterectomy. Exercise has been limited due to recent surgery. Index Surgery Date of Surgery: 03/16/2019 Surgeon: Selin Blackmon Surgical Procedure: LAPAROSCOPIC GASTRIC RESTRICTIVE SURG W/ BYPASS AND RACHELE-EN-Y Pre-surgical weight: 137.9 kg (304 lb) Override Index Surgery Information? No Other Bariatric Surgeries None Visit: 12 months Today's Visit: Wt 88 kg (194 lb) BMI 34.18 kg/m2 BMI 34.18 kg/(m2) Last Visit: Wt: 88.9 kg (196 lb) BMI: 34.53 kg/(m2) Total weight loss: 49.9 kg (110 lb) Tangent weight: 65.6 kg (144 lb 10.6 oz) Excess weight: 72.3 kg (159 lb 5.4 oz) % of excess body weight lost: 49.9 kg (110 lb) (69.04% of excess weight loss) COMPLICATIONS SINCE LAST VISIT?: NONE DIET INTAKE: Please see nutrition appointment from 04/01/2020 DAILY SUPPLEMENTS: Calcium: Calcium Citrate w/ vitamin D (1200 - 1500mg) Multivitamin AND Minerals: 1 per day Iron Supplement: 27 - 28 mg Vitamin B12: 1000 mcg Vitamin D3: included in multi-vitamin Other: Biotin 5000 mcg daily EXERCISE: Was exercising regularly prior to recent urgent hysterectomy Are you attending any Support Groups? No attendance Current Outpatient Medications Medication Sig - brinzolamide (AZOPT) 1 % ophthalmic suspension Use 1 Drop in both eyes twice daily. - loratadine 10 mg tablet Take 1 tablet by mouth once daily. - acetaminophen 325 mg tablet Take 1-2 tablets by mouth every 4 hours as needed. - aspirin, enteric coated (ADULT LOW DOSE ASPIRIN) 81 mg EC tablet Take 1 tablet by mouth once daily. No current facility-administered medications for this visit. REVIEW OF SYSTEMS: [employer]: recent hystrectomy, healing well All other systems reviewed are negative today OBESITY MEDICINE COMORBIDITIES: DON resolved PHYSICAL EXAM: Wt 88 kg (194 lb) LMP 06/11/2019 BMI 34.18 kg/m? General: AANDO, pleasant, NAD A/P: Normal post-OP course 1. S/P gastric bypass - ICD9: V45.86, ICD10: Z98.84 (primary diagnosis) - doing well overall, weight loss has slowed with recent hysterectomy and exercise restriction. She continues to follow post op nutritional recommendations. 2. Class 1 obesity - ICD9: 278.00, ICD10: E66.9 - continues to lose weight post RYGB DISPOSITION: Return 6 month to Post-op follow up/ individual office visit EDUCATION: Pt encouraged to continue with positive lifestyle changes and daily/vitamin intake REFERRALS: N/A LABS: Today: Ordered in January by Dr Hillman, Pt reminded to have labs drawn at her convenience. Daniella Roche APRN.GUNNAR I spent 15 minutes in the visit, with more than 50% of the total [id number] time of the visit in counseling / coordination of care. Normal [facility] PROGRESSon 04-01-2020 PROGRESS HNO ID: [id number] Author: Carolin Hawkins Service: ? Author Type: Registered Dietitian Type: Progress Notes Filed: 04/01/2020 9:24 AM Note Text: [facility] Nutrition Therapy: Virtual Consult ? Re-assessment This visit was performed virtually due to the COVID-19 epidemic as an effort to protect patients and minimize exposure. Consent from patient received to conduct visit virtually. This Team Access Model visit is a virtual encounter. It required patient-provider interaction for the medical decision making as documented below. PROGRESS: Nutrition Intervention (date of last encounter 04/13/19): 1. Continue to take all recommended vitamin/minerals including daily multivitamin complete, VIt D3 3,000 IU, Vit B12 500 mcg, Vit B - complex (with 75 - 100 mcg thiamine) Iron 45-60 mg and calcium citrate 1309-5473 mg/day 2. Protein goal: 71-89 grams protein/day 3. Fluid goal: 64 ounces per day (no carbonation, caffeine, calories, alcohol) 4. Exercise goal: increase as tolerated to goal of 200 minutes/week combination cardiovascular and strength training exercise. 5. Practice mindful eating habits-take small portions, eat slowly, chew thoroughly CHANGES IN TREATMENT: Patient met goal(s): Yes Actions to implement interventions: Breakfast: smoothie OR Protein shake Morning Snack: none Lunch: salad OR chicken OR vegetables with hummus Afternoon Snack: none Dinner: chicken/meat with vegetable Evening Snack: sometimes, protein bar OR popcorn Fluids: water, gatorade - total: 64 oz Exercise: previously, gym 5x per week Vitamins/Minerals: MVI, B12, Biotin, Iron, Calcium Citrate, VitD CLINICAL IMPRESSIONS: good Allergies: ALLERGIES Allergen Reactions - Morphine Unknown Medications: Current Outpatient Medications Medication Sig Dispense Refill - brinzolamide (AZOPT) 1 % ophthalmic suspension Use 1 Drop in both eyes twice daily. - loratadine 10 mg tablet Take 1 tablet by mouth once daily. 90 tablet 3 - acetaminophen 325 mg tablet Take 1-2 tablets by mouth every 4 hours as needed. 0 - aspirin, enteric coated (ADULT LOW DOSE ASPIRIN) 81 mg EC tablet Take 1 tablet by mouth once daily. 30 tablet 0 No current facility-administered medications for this visit. PAST MEDICAL HISTORY Diagnosis Date - Cardiomyopathy (HCC) - Chest pain, atypical - Dyspnea - Glaucoma - Migraine - Obesity - DON (obstructive sleep apnea) - PVC (premature ventricular contraction) 05/03/2013 PAST SURGICAL HISTORY Procedure Laterality Date - CARDIAC CATH 2006,2012 - CHOLECYSTECTOMY 2002 - REDUCTION OF LARGE BREAST 2003 - TONSILLECTOMY HX as child - TUBAL LIGATION, 2002 ANTHROPOMETRICS Height per patient: 63.17? Weight per patient: 196# Most recent height and weight per EPIC Height: Last 1 Encounter Ht Readings: Date: Ht: 06/13/2019 160.5 cm (5' 3.17 ) Weight: Last 1 Encounter Wt Readings: Date: Wt: 01/30/2020 96.6 kg (213 lb) Body mass index is 34.53 kg/m?. Educational materials provided: None this visit Patient presents for follow up nutrition Virtual Consult 13 months post-RYGB. Since last assessment, 1 year ago, Patient has lost 78 pounds. Patient has lost 143 pounds since initial assessment(339#) accounting for 68% loss excess body weight(208#). Tolerating stage 5 diet without difficulty. Protein needs estimated at 71-89 gm protein per day (1.2 - 1.5 g/kg IBW kg). Diet recall indicates consistent meal pattern with attention to protein intake and portion control. Current intake meeting low-end protein/calorie needs. Fluid consumption adequate and includes water as primary beverage. Patient is taking all recommended vitamin/minerals. Exercise is consistent and meets recommendations. Labs reviewed, WNL. Patient states no difficulty or concerns. Of note, Patient had a total hysterectomy last week and is recovering currently. Patient-stated goal weight of 150-160 pounds, which is reasonable. Nutrition Diagnosis: Altered Gastrointestinal Tract Function, related to, S/P bariatric surgery, as evidenced by patientupdate, diet recall, and surtgical history. Nutrition Intervention: Modify type and amount of food consumed for meals and snacks: 1. Protein: Continue to strive for 71-89 g protein per day. Eat protein first at all meals. Lean meats, low fat/part skim dairy products, peanut butter, eggs, beans. 2. Eat 4 small meals per day or 3 meals and 1-2 small snacks for additional protein 3. Fluids: 64 oz per day, minimum. No carbonation, no caffeine, no calories, no alcohol. 4. Vitamin/minerals: Take daily multivitamin with 200 % daily value for all vitamin/minerals plus VIt D3 3,000 IU, Vit B12 500 mcg, Iron 45 mg and calcium citrate 6856-0855 mg/day . It is okay to use combination vitamin/minerals to reduce pill volume such as [facility] Multivitamin + 5426-5117 mg calcium citrate 5. Exercise: strive for daily activity - combine strength training and cardio for best workouts. Goal is 30 minutes 5-6x per week. 6. Practice these: Eat in this order protein first, vegetable and fruit second and whole grain carbohydrates last. * Separate eating and drinking by 30 minutes * Chew your food 20-30x per bite * Meals should last 30 minutes. Nutrition Monitoring AND Evaluation: BMI < 30 Criteria: patient update and weight check Need for Follow up: 1 year, or sooner if needed Appointment Start Time: 8:56 AM Appointment End Time: 9:21 AM Time Spent on Consult: 25 minutes Signed by: Carolin Hawkins RD Normal [facility] CBC Auto Differentialon 07-0 Basophils (Bld) [#/Vol] 10*3/uL [place] Basophils/100 WBC (Bld) 0 % 0 - 2 % [place] Differential Type NOT REPORTED [place] Eosinophils (Bld) [#/Vol] 0.18 10*3/uL [place] Eosinophils/100 WBC (Bld) 3 % 1 - 4 % [place] Erythrocyte distribution width (RBC) [Ratio] 14.3 % 11.8 - 14.4 % [place] Hematocrit (Bld) [Volume fraction] 30.2 % Low 36.3 - 47.1 % [place] Hemoglobin (Bld) [Mass/Vol] 9.7 g/dL Low 11.9 - 15.1 g/dL [place] Immature granulocytes (Bld) [#/Vol] 1 % High 0 [place] Immature granulocytes (Bld) [#/Vol] 0.04 10*3/uL [place] Interpretation and review of laboratory results Abnormal [place] Lymphocytes (Bld) [#/Vol] 2.01 10*3/uL [place] Lymphocytes/100 WBC (Bld) 28 % 24 - 43 % [place] MCH (RBC) [Entitic mass] 30.6 pg 25.2 - 33.5 pg [place] MCHC (RBC) [Mass/Vol] 32.1 g/dL 28.4 - 34.8 g/dL [place] MCV (RBC) [Entitic vol] 95.3 fL 82.6 - 102.9 fL [place] Monocytes (Bld) [#/Vol] 0.56 10*3/uL [place] Monocytes/100 WBC (Bld) 8 % 3 - 12 % [place] Platelet mean volume (Bld) [Entitic vol] 10.3 fL 8.1 - 13.5 fL [place] Platelets (Bld) [#/Vol] 344 10*3/uL [place] Platelets (Bld) [#/Vol] NOT REPORTED [place] RBC (Bld) [#/Vol] 3.17 10*6/uL Low 3.95 - 5.1 1 m/uL [place] RBC morphology finding Nom (Bld) NOT REPORTED [place] Segmented neutrophils/100 WBC (Bld) 61 % 36 - 65 % [place] Segs Absolute 4.34 [place] WBC (Bld) [#/Vol] 7.2 10*3/uL [place] WBC (Bld) [#/Vol] 0.0 10*3/uL 0.0 per 10 0 WBC [place] WBC Morphology NOT REPORTED [place] Comprehensive Metabolic Pane shelley 03-27-2020 Albumin [Mass/Vol] 4.1 g/dL 3.5 - 5.2 g/dL [place] Albumin/Globulin [Mass ratio] 1.5 {ratio} [place] ALP [Catalytic activity/Vol] 79 U/L 35 - 104 U/L [place] ALT [Catalytic activity/Vol] 13 U/L 5 - 33 U/L [place] Anion gap [Moles/Vol] 12 mmol/L 9 - 17 mmol/L [place] AST [Catalytic activity/Vol] 20 U/L <32 [place] Bilirubin Ql (U) 1.73 mg/dL High 0.3 - 1.2 mg/dL [place] Bun/Cre Ratio 16 [place] Calcium [Mass/Vol] 9.0 mg/dL 8.6 - 10. 4 mg/dL [place] Chloride [Moles/Vol] 99 mmol/L 98 - 107 mmol/L [place] CO2 [Moles/Vol] 26 mmol/L 20 - 31 mmol/L [place] Creatinine [Mass/Vol] 0.55 mg/dL 0.5 - 0.9 mg/dL [place] GFR >60 >60 mL/min [place] GFR Non- >60 >60 mL/min [place] Glucose [Mass/Vol] 96 mg/dL 70 - 99 mg/dL [place] Interpretation and review of laboratory results Abnormal [place] Potassium [Moles/Vol] 4.2 mmol/L 3.7 - 5.3 mmol/L [place] Protein [Mass/Vol] 6.8 g/dL 6.4 - 8.3 g/dL [place] Sodium [Moles/Vol] 137 mmol/L 135 - 144 mmol/L [place] Urea nitrogen [Mass/Vol] 9 mg/dL 6 - 20 mg/dL [place] Metabolic Panelon 03-27-2020 GFR/1.73 sq M predicted among non-blacks MDRD (S/P/Bld) [Vol rate/Area] [place] Comment on above: Average GFR for 40-4 9 years old: 99 mL/min/1.73sq m Chronic Kidney Disease: <60 mL/min/1.73sq m Kidney failure: <15 mL/min/1.73sq m eGFR calculated using average adult body mass. Additional eGFR calculator available at: http://www.MideoMe/multiple_crcl_2012.htm Stage 1: Some kidney damage normal GFR Stage 2: Mild kidney damage GFR 60-89 Stage 3: Moderate kidney damage GFR 30-59 Stage 4: Severe kidney damage GFR 15-29 Stage 5: Severe kidney damage GFR <15 ESRD - chronic treatment by dialysis or transplant Hemoglobin and hematocrit, b loodon 03-24-2020 Hematocrit (Bld) [Volume fraction] 24.9 % Low 36.3 - 47.1 % [place] Hemoglobin (Bld) [Mass/Vol] 8.2 g/dL Low 11.9 - 15.1 g/dL [place] Interpretation and review of laboratory results Abnormal [place] Basic Metabolic Panel w/ Ref faby to MGon 03-23-2020 Anion gap [Moles/Vol] 10 mmol/L 9 - 17 mmol/L [place] Bun/Cre Ratio 18 [place] Calcium [Mass/Vol] 8.3 mg/dL Low 8.6 - 10. 4 mg/dL [place] Chloride [Moles/Vol] 102 mmol/L 98 - 107 mmol/L [place] CO2 [Moles/Vol] 26 mmol/L 20 - 31 mmol/L [place] Creatinine [Mass/Vol] 0.44 mg/dL Low 0.5 - 0.9 mg/dL [place] GFR >60 >60 mL/min [place] GFR Non- >60 >60 mL/min [place] Glucose [Mass/Vol] 118 mg/dL High 70 - 99 mg/dL [place] Interpretation and review of laboratory results Abnormal [place] Potassium [Moles/Vol] 4.1 mmol/L 3.7 - 5.3 mmol/L [place] Sodium [Moles/Vol] 138 mmol/L 135 - 144 mmol/L [place] Urea nitrogen [Mass/Vol] 8 mg/dL 6 - 20 mg/dL [place] CBC Auto Differentialon Basophils (Bld) [#/Vol] 0.03 10*3/uL [place] Basophils/100 WBC (Bld) 1 % 0 - 2 % [place] Differential Type NOT REPORTED [place] Eosinophils (Bld) [#/Vol] 0.12 10*3/uL [place] Eosinophils/100 WBC (Bld) 2 % 1 - 4 % [place] Erythrocyte distribution width (RBC) [Ratio] 13.5 % 11.8 - 14.4 % [place] Hematocrit (Bld) [Volume fraction] 22.9 % Low 36.3 - 47.1 % [place] Hemoglobin (Bld) [Mass/Vol] 7.5 g/dL Low 11.9 - 15.1 g/dL [place] Immature granulocytes (Bld) [#/Vol] 0 % 0 [place] Immature granulocytes (Bld) [#/Vol] 10*3/uL [place] Interpretation and review of laboratory results Abnormal [place] Lymphocytes (Bld) [#/Vol] 1.98 10*3/uL [place] Lymphocytes/100 WBC (Bld) 36 % 24 - 43 % [place] MCH (RBC) [Entitic mass] 30.2 pg 25.2 - 33.5 pg [place] MCHC (RBC) [Mass/Vol] 32.8 g/dL 28.4 - 34.8 g/dL [place] MCV (RBC) [Entitic vol] 92.3 fL 82.6 - 102.9 fL [place] Monocytes (Bld) [#/Vol] 0.41 10*3/uL [place] Monocytes/100 WBC (Bld) 7 % 3 - 12 % [place] Platelet mean volume (Bld) [Entitic vol] 10.9 fL 8.1 - 13.5 fL [place] Platelets (Bld) [#/Vol] NOT REPORTED [place] Platelets (Bld) [#/Vol] 201 10*3/uL [place] RBC (Bld) [#/Vol] 2.48 10*6/uL Low 3.95 - 5.1 1 m/uL [place] RBC morphology finding Nom (Bld) NOT REPORTED [place] Segmented neutrophils/100 WBC (Bld) 54 % 36 - 65 % [place] Segs Absolute 2.99 [place] WBC (Bld) [#/Vol] 5.6 10*3/uL [place] WBC (Bld) [#/Vol] 0.0 10*3/uL 0.0 per 10 0 WBC [place] WBC Morphology NOT REPORTED [place] ABDOMEN PELVIS W IV CONTR AST Additional Contrast? Noneon 03-23-2020 1. Hemoperitoneum, pelvic hematoma; source of the bleed is presumably related to recent hysterectomy. 2. Prior cholecystectomy and bariatric surgery evident. Critical results were called by Dr. Randy Barker to LENNIE NUNEZ on 03/23/2020 at 18:33. He stated he would be obtaining an immediate [employer] consultation. [place], [place], [facility] Incoming Radiant Results From [employer] - 03/23/2020 6:39 PM EDT EXAMINATION: CT OF THE ABDOMEN AND PELVIS WITH CONTRAST 03/23/2020 6:11 pm TECHNIQUE: CT of the abdomen and pelvis was performed with the administration of intravenous contrast. Multiplanar reformatted images are provided for review. Dose modulation, iterative reconstruction, and/or weight based adjustment of the mA/kV was utilized to reduce the radiation dose to as low as reasonably achievable. COMPARISON: None. HISTORY: ORDERING SYSTEM PROVIDED HISTORY: post op bleeding FINDINGS: Lower Chest: Minimal left basilar subsegmental atelectasis laterally. Visualized portions of the right lung base are clear. Cardiac and posterior mediastinal structures visualized are unremarkable. Organs: Normal attenuation pattern throughout the liver. No discrete hepatic lesion. No intrahepatic bile duct dilatation is seen. Common bile duct measures 7 mm. The gallbladder is absent status post cholecystectomy. The kidneys, spleen, adrenal glands and pancreas appear unremarkable. GI/Bowel: Bariatric surgery sequela evident. No diffuse or focal bowel wall thickening evident. No inflammatory changes evident. No obstruction is seen. The appendix is not clearly visualized. Pelvis: Recent hysterectomy. High-density ascites measures 55 Hounsfield units in keeping with hemoperitoneum. On axial series 2, image 136 this measures 8 x 15 x 9 cm (axial image 136, coronal image 46). No pneumoperitoneum evident. Urinary bladder appears unremarkable. Peritoneum/Retroperit oneum: Hemoperitoneum along the right pericolic gutter. Calcific atherosclerosis aorta without aneurysm. Inferior vena cava appears unremarkable. No adenopathy. Bones/Soft Tissues: No acute superficial soft tissue or osseous structure abnormality evident. IMPRESSION: 1. Hemoperitoneum, pelvic hematoma; source of the bleed is presumably related to recent hysterectomy. 2. Prior cholecystectomy and bariatric surgery evident. Critical results were called by Dr. Randy Barker to LENNIE NUNEZ on 03/23/2020 at 18:33. He stated he would be obtaining an immediate [employer] consultation. [facility], [place] EXAMINATION: CT OF THE ABDOMEN AND PELVIS WITH CONTRAST 03/23/2020 6:11 pm TECHNIQUE: CT of the abdomen and pelvis was performed with the administration of intravenous contrast. Multiplanar reformatted images are provided for review. Dose modulation, iterative reconstruction, and/or weight based adjustment of the mA/kV was utilized to reduce the radiation dose to as low as reasonably achievable. COMPARISON: None. HISTORY: ORDERING SYSTEM PROVIDED HISTORY: post op bleeding FINDINGS: Lower Chest: Minimal left basilar subsegmental atelectasis laterally. Visualized portions of the right lung base are clear. Cardiac and posterior mediastinal structures visualized are unremarkable. Organs: Normal attenuation pattern throughout the liver. No discrete hepatic lesion. No intrahepatic bile duct dilatation is seen. Common bile duct measures 7 mm. The gallbladder is absent status post cholecystectomy. The kidneys, spleen, adrenal glands and pancreas appear unremarkable. GI/Bowel: Bariatric surgery sequela evident. No diffuse or focal bowel wall thickening evident. No inflammatory changes evident. No obstruction is seen. The appendix is not clearly visualized. Pelvis: Recent hysterectomy. High-density ascites measures 55 Hounsfield units in keeping with hemoperitoneum. On axial series 2, image 136 this measures 8 x 15 x 9 cm (axial image 136, coronal image 46). No pneumoperitoneum evident. Urinary bladder appears unremarkable. Peritoneum/Retroperit oneum: Hemoperitoneum along the right pericolic gutter. Calcific atherosclerosis aorta without aneurysm. Inferior vena cava appears unremarkable. No adenopathy. Bones/Soft Tissues: No acute superficial soft tissue or osseous structure abnormality evident. [place], [place] Metabolic Panelon 03-23-2020 GFR/1.73 sq M predicted among non-blacks MDRD (S/P/Bld) [Vol rate/Area] [place], [place] Comment on above: Stage 1: Some kidney damage normal GFR Stage 2: Mild kidney damage GFR 60-89 Stage 3: Moderate kidney damage GFR 30-59 Stage 4: Severe kidney damage GFR 15-29 Stage 5: Severe kidney damage GFR <15 ESRD - chronic treatment by dialysis or transplant Average GFR for 40-4 9 years old: 99 mL/min/1.73sq m Chronic Kidney Disease: <60 mL/min/1.73sq m Kidney failure: <15 mL/min/1.73sq m eGFR calculated using average adult body mass. Additional eGFR calculator available at: http://www.The [employer] Tux.ActiveCloud/multiple_crcl_2012.htm TYPE AND SCREENon 03-23-2020 ABO/Rh Positive [place], [place] Arm Band Number [id number] [place], [place] Expiration Date 03/26/2020,9788 [place], [place] CNPNon 03-19-2020 CNPN Telephone (GENBMI) ARIANE SANCHEZ ([id number]) 1975 F Date Time Provider Department 03/19/20 MILDRED BIRD [facility] During your visit today, we recorded the following information about you: Mildred Bird RN, RN 03/19/2020 9:05 AM Signed BMI SPECIALTY CARE COORDINATION TELEPHONE ENCOUNTER Returning patient call: Patient having surgery tomorrow and wanted to know what drugs to avoid as a bariatric patient. Advised patient to avoid NSAIDS or drugs that include NSAIDS in their form and should not be taken after weight loss surgery. Mildred Bird RN March 19, 2020 9:05 AM Allergies As of Date: 03/19/2020 Noted Allergy Reaction MORPHINE 05/03/2013 16 - Unknown Date Reviewed: 06/13/2019 Reviewed by: Gabino Scott Ma - Fully Assessed Reason for Visit: Returning Patient's Call [[id number]] Prescriptions as of 03/19/2020 Sig: BRINZOLAMIDE 1 % EYE DROPS,TITUS* Use 1 Drop in both eyes twice* LORATADINE 10 MG TABLET Take 1 tablet by mouth once d* ACETAMINOPHEN 325 MG TABLET Take 1-2 tablets by mouth saurabh* ASPIRIN 81 MG TABLET,DELAYED * Take 1 tablet by mouth once d* Problem List As Of Date 03/19/2020 Noted Resolved PVC (premature ventricular contraction) [I49.3] 05/03/2013 05/03/2013 Cardiomyopathy, nonischemic [I42.8] 05/03/2013 05/03/2013 More... Obesity [E66.9] 05/03/2013 05/03/2013 Chest pain, atypical [R07.89] 05/03/2013 05/03/2013 Palpitations [R00.2] 05/03/2013 05/03/2013 More... Dyspnea [R06.09, R09.89] 05/03/2013 05/03/2013 More... S/P tonsillectomy [Z90.89] 05/03/2013 05/03/2013 S/P cholecystectomy [Z90.49] 05/03/2013 05/03/2013 S/P tubal ligation [Z98.51] 05/03/2013 05/03/2013 PVC's (premature ventricular contractions) [I49*05/08/2013 More... Palpitations [R00.2] 05/08/2013 Glaucoma [H40.9] Migraine [G43.909] SUMMARY [V999.95] 11/28/2013 More... CAD (coronary artery disease), robinson coronary *11/28/2013 More... Morbid obesity (HCC) [E66.01] 11/28/2013 More... Admission for therapeutic drug monitoring [Z51.*11/28/2013 More... Obesity, Class III, BMI >= 40 [E66.01] 02/27/2019 DON (obstructive sleep apnea) [G47.33] PVC (premature ventricular contraction) [I49.3] 05/03/2013 S/P gastric bypass [Z98.84] 04/17/2019 Encounter Status:Closed by MILDRED BIRD on 03/19/20 [facility] COVID-19on 03-16-2020 SARS-CoV-2 Not Detected Not Detected [place], [place] Comment on above: The specimen is NEGATIVE for SARS-CoV-2, the novel coronavirus associated with COVID-19. A negative result does not rule out COVID-19. This test has been authorized by the FDA under an Emergency Use Authorization (EUA) for use by authorized laboratories. Fact sheet for Healthcare Providers: https://www.fda.gov/media/484206/download Fact sheet for Patients: https://www.fda.gov/media/089584/download METHODOLOGY: RT-PCR SARS-CoV-2, PCR [facility] Vinh [place], [place] SARS-CoV-2, Rapid [facility] [place] Source .NASOPHARYNGEAL SWAB [place], [place] Culture, Urineon 03-16-2020 Culture NO SIGNIFICANT GROWTH [place], [place] Special Requests NOT REPORTED [place], [place] Specimen Description .CLEAN CATCH URINE [place], [place] CBC Auto Differentialon 02-19 Basophils (Bld) [#/Vol] 0.04 10*3/uL [place] Basophils/100 WBC (Bld) 1 % 0 - 2 % [place] Differential Type NOT REPORTED [place] Eosinophils (Bld) [#/Vol] 0.19 10*3/uL [place] Eosinophils/100 WBC (Bld) 4 % 1 - 4 % [place] Erythrocyte distribution width (RBC) [Ratio] 13.3 % 11.8 - 14.4 % [place] Hematocrit (Bld) [Volume fraction] 42.1 % 36.3 - 47.1 % [place] Hemoglobin (Bld) [Mass/Vol] 13.3 g/dL 11.9 - 15.1 g/dL [place] Immature granulocytes (Bld) [#/Vol] 0 % 0 [place] Immature granulocytes (Bld) [#/Vol] 10*3/uL [place] Interpretation and review of laboratory results Abnormal [place] Lymphocytes (Bld) [#/Vol] 2.10 10*3/uL [place] Lymphocytes/100 WBC (Bld) 45 % High 24 - 43 % [place] MCH (RBC) [Entitic mass] 29.4 pg 25.2 - 33.5 pg [place] MCHC (RBC) [Mass/Vol] 31.6 g/dL 28.4 - 34.8 g/dL [place] MCV (RBC) [Entitic vol] 93.1 fL 82.6 - 102.9 fL [place] Monocytes (Bld) [#/Vol] 0.39 10*3/uL [place] Monocytes/100 WBC (Bld) 9 % 3 - 12 % [place] Platelet mean volume (Bld) [Entitic vol] 11.3 fL 8.1 - 13.5 fL [place] Platelets (Bld) [#/Vol] NOT REPORTED [place] Platelets (Bld) [#/Vol] 204 10*3/uL [place] RBC (Bld) [#/Vol] 4.52 10*6/uL 3.95 - 5.1 1 m/uL [place] RBC morphology finding Nom (Bld) NOT REPORTED [place] Segmented neutrophils/100 WBC (Bld) 41 % 36 - 65 % [place] Segs Absolute 1.87 [place] WBC (Bld) [#/Vol] 4.6 10*3/uL [place] WBC (Bld) [#/Vol] 0.0 10*3/uL 0.0 per 10 0 WBC [place] WBC Morphology NOT REPORTED [place], [place] Comprehensive metabolic pane shelley 03-15-2020 Albumin [Mass/Vol] 4 g/dL 3.5 - 5.2 g/dL [place] Albumin/Globulin [Mass ratio] 1.7 {ratio} [place] ALP [Catalytic activity/Vol] 69 U/L 35 - 104 U/L [place] ALT [Catalytic activity/Vol] 17 U/L 5 - 33 U/L [place] Anion gap [Moles/Vol] 12 mmol/L 9 - 17 mmol/L [place] AST [Catalytic activity/Vol] 27 U/L <32 [place] Bilirubin Ql (U) 0.64 mg/dL 0.3 - 1.2 mg/dL [place] Bun/Cre Ratio 17 [place] Calcium [Mass/Vol] 9.0 mg/dL 8.6 - 10. 4 mg/dL [place] Chloride [Moles/Vol] 106 mmol/L 98 - 107 mmol/L [place] CO2 [Moles/Vol] 24 mmol/L 20 - 31 mmol/L [place] Creatinine [Mass/Vol] 0.59 mg/dL 0.5 - 0.9 mg/dL [place] GFR >60 >60 mL/min [place] GFR Non- >60 >60 mL/min [place] Glucose [Mass/Vol] 91 mg/dL 70 - 99 mg/dL [place] Potassium [Moles/Vol] 4.4 mmol/L 3.7 - 5.3 mmol/L [place] Protein [Mass/Vol] 6.4 g/dL 6.4 - 8.3 g/dL [place] Sodium [Moles/Vol] 142 mmol/L 135 - 144 mmol/L [place] Urea nitrogen [Mass/Vol] 10 mg/dL 6 - 20 mg/dL [place] EKG 12 Leadon 03-15-2020 Atrial Rate 69 BPM [place] P-R Interval 124 ms [place] Q-T Interval 438 ms [place] QRS Duration 84 ms [place] QTc Calculation (Bazett) 469 ms [place], [place] R [place] 154 degrees [place], [place] T [place] 140 degrees [place] Ventricular Rate 69 BPM [place], [place] Sinus rhythm with frequent Premature ventricular complexes in a pattern of bigeminy Right axis deviation Abnormal ECG No previous ECGs available Confirmed by LAURYN BARRETT ([id number]) on 03/15/2020 9:31:13 PM [place], [place] Fernando, Mhpn Incoming Ekg Results From [facility] [place] - 03/15/2020 9:31 PM EDT Sinus rhythm with frequent Premature ventricular complexes in a pattern of bigeminy Right axis deviation Abnormal ECG No previous ECGs available Confirmed by LAURYN BARRETT ([id number]) on 03/15/2020 9:31:13 PM [place] HCG Qualitative, Serumon hCG Qual Negative NEGATIVE [place], [place] Comment on above: Specimens with hCG l evels near the threshold of the test (25 mIU/mL) may give a negative or indeterminate result. In such cases, another test should be performed with a new specimen in 48-72 hours. If early is suspected clinically in this setting, correlation with quantitative serum b-hCG level is suggested. [employer] has confirmed the use of plasma for this test. This has not been cleared or approved by the U.S. Food and Drug Administration. The FDA has determined that such clearance is not necessary. Magnesiumon 03-15-2020 Magnesium [Mass/Vol] 2.1 mg/dL 1.6 - 2.6 mg/dL [place] Metabolic Panelon 03-15-2020 GFR/1.73 sq M predicted among non-blacks MDRD (S/P/Bld) [Vol rate/Area] [place], [place] Comment on above: Stage 1: Some kidney damage normal GFR Stage 2: Mild kidney damage GFR 60-89 Stage 3: Moderate kidney damage GFR 30-59 Stage 4: Severe kidney damage GFR 15-29 Stage 5: Severe kidney damage GFR <15 ESRD - chronic treatment by dialysis or transplant Average GFR for 40-4 9 years old: 99 mL/min/1.73sq m Chronic Kidney Disease: <60 mL/min/1.73sq m Kidney failure: <15 mL/min/1.73sq m eGFR calculated using average adult body mass. Additional eGFR calculator available at: http://www.MideoMe/multiple_crcl_2012.htm TYPE AND SCREENon 03-15-2020 ABO/Rh Positive [place] Arm Band Number [id number] [place], [place] Expiration Date 03/22/2020,2359 [place], [place] PROGRESSon 01-30-2020 PROGRESS HNO ID: [id number] Author: Natty Hillman Service: ? Author Type: Physician Type: Progress Notes Filed: 02/05/2020 3:33 PM Note Text: This Team Access Model visit is a phone encounter. It required patient-provider interaction for the medical decision making as documented below. Consent from patient received to conduct visit using telehealth. This visit was performed virtually due to the COVID-19 pandemic as an effort to protect patients and minimize exposure. START: 11:30 am (phone appt-virtual did not connect) Name: Ariane Sanchez Index Surgery Date of Surgery: 03/16/2019 Surgeon: Selin Blackmon Surgical Procedure: LAPAROSCOPIC GASTRIC RESTRICTIVE SURG W/ BYPASS AND RACHELE-EN-Y Pre-surgical weight: 137.9 kg (304 lb) Override Index Surgery Information? No Other Bariatric Surgeries None Visit: 10 months Today's Visit: Wt 96.6 kg (213 lb) BMI 37.53 kg/m2 BMI 37.53 kg/(m2) Last Visit: Wt: 114.8 kg (253 lb) BMI: 44.58 kg/(m2) Total weight loss: 41.3 kg (91 lb) Tangent weight: 65.6 kg (144 lb 10.6 oz) Excess weight: 72.3 kg (159 lb 5.4 oz) % of excess body weight lost: 41.3 kg (91 lb) (57.11% of excess weight loss) COMPLICATIONS SINCE LAST VISIT?: NONE and Other: weight loss plateau -clothing size down etc. -sometimes, has occasionally nausea/vomiting episodes-she attributes this to a certain food DIET INTAKE: tolerates Phase V diet DAILY SUPPLEMENTS: Calcium: Calcium Citrate w/ vitamin D (1200 - 1500mg) Multivitamin AND Minerals: Centrum MVI with iron (she ran out of her bariatric MVI) Iron Supplement: takes additional Vitamin B12: yes Vitamin D3: 2000 IU Other: N/A EXERCISE: walking sometimes-trying to get better now that the weather is getting better. She did join PF 3x a week in Oct, and loved it! (was going with her sister, who helps her out at the gym) She is looking forward to being able to resume going to gym Are you attending any Support Groups? Not known Current Outpatient Medications Medication Sig - brinzolamide (AZOPT) 1 % ophthalmic suspension Use 1 Drop in both eyes twice daily. - loratadine 10 mg tablet Take 1 tablet by mouth once daily. - acetaminophen 325 mg tablet Take 1-2 tablets by mouth every 4 hours as needed. - aspirin, enteric coated (ADULT LOW DOSE ASPIRIN) 81 mg EC tablet Take 1 tablet by mouth once daily. No current facility-administered medications for this visit. REVIEW OF SYSTEMS: denies nausea, vomiting, dumping syndrome PHYSICAL EXAM: Wt 96.6 kg (213 lb) LMP 06/11/2019 BMI 37.53 kg/m? No acute distress, alert and oriented, pleasant, non-toxic sounding A/P: 44 y/o lady status post: Laparoscopic Rachele-en-Y gastric bypass (120-cm antecolic antegastric Rachele limb, and 100-cm biliopancreatic limb), Esophagogastroscopy done on: 03/16/[address] Blackmon. 1)status post bariatric surgery. Indicates an eventual, long-term weight loss goal of: Indicates the following as possible challenges to ongoing healthy lifestyle changes: 2)Health issues which have improved/resolved since surgery: -6 month lab orders entered. DISPOSITION: Return 6 month to Post-op follow up/ individual office visit EDUCATION: Pt encouraged to continue with positive lifestyle changes and daily/vitamin intake REFERRALS: BMI [employer] LABS: Today: CBC W DIFF, CMP, Vitamin B12, Iron/ TIBC, Lipid panel, TSH, PTH Intact, Folate, 25 Hydroxy, HBA1C and B1 In 6 months: CBC W DIFF, CMP, Vitamin B12, Iron/ TIBC, Lipid panel, TSH, PTH Intact, Folate, 25 Hydroxy, HBA1C and B1 Natty Hillman MD END: 11:54 am (OTHER): -06/13/2019: OV BMI/Rafy. Copied from note: A/P: 44 y/o lady status post: Laparoscopic Rachele-en-Y gastric bypass (120-cm antecolic antegastric Rachele limb, and 100-cm biliopancreatic limb), Esophagogastroscopy done on: 03/16/[address] Blackmon. 1)status post bariatric surgery. Indicates an eventual, long-term weight loss goal of: 160# Indicates the following as possible challenges to ongoing healthy lifestyle changes: none 2)Health issues which have improved/resolved since surgery: -DM, high blood pressure; cholesterol improved Intermittent nausea/vomiting-withi n seconds-sometimes if she eats too quickly, or doesn't agree with her. -chicken yifan doesn't agree with her. However, doesn't happen daily, or with every meal. She still feels able to get adequate protein/fluids most days. Advised her to continue to closely monitor her symptoms, and if worsens, or happens more frequently, regardless of type of food, then she will need to come in for further evaluation, including labs and EGD and to follow up with her bariatric surgeon. The patient expressed full understanding and agreement with the above. DISPOSITION: Return 3 month to Post-op follow up/ individual office visit EDUCATION: Pt encouraged to continue with positive lifestyle changes and daily/vitamin intake REFERRALS: Follow up with Bariatric surgeon if symptoms persist or worsen LABS: Today: none In 3 months: CBC W DIFF, CMP, Vitamin B12, Iron/ TIBC, Lipid panel, TSH, PTH Intact, Folate, 25 Hydroxy, HBA1C and B1 Normal [facility] Maria Fernanda 12-18-2019 CNPN Telephone ([employer]) ARIANE SANCHEZ ([id number]) 1975 F Date Time Provider Department 12/18/19 SELIN BLACKMON During your visit today, we recorded the following information about you: Gabino Scott Ma 12/18/2019 12:52 PM Signed An unsuccessful attempt to contact the patient was made today. A message was left instructing the patient to return my call. Gabino Scott MA [facility] [place] Allergies As of Date: 12/18/2019 Noted Allergy Reaction MORPHINE 05/03/2013 16 - Unknown Date Reviewed: 06/13/2019 Reviewed by: Gabino Scott Ma - Fully Assessed Reason for Visit: Patient Update [1234] Prescriptions as of 12/18/2019 Sig: BRINZOLAMIDE 1 % EYE DROPS,TITUS* Use 1 Drop in both eyes twice* LORATADINE 10 MG TABLET Take 1 tablet by mouth once d* ACETAMINOPHEN 325 MG TABLET Take 1-2 tablets by mouth saurabh* ASPIRIN 81 MG TABLET,DELAYED * Take 1 tablet by mouth once d* Problem List As Of Date 12/18/2019 Noted Resolved PVC (premature ventricular contraction) [I49.3] 05/03/2013 05/03/2013 Cardiomyopathy, nonischemic [I42.8] 05/03/2013 05/03/2013 More... Obesity [E66.9] 05/03/2013 05/03/2013 Chest pain, atypical [R07.89] 05/03/2013 05/03/2013 Palpitations [R00.2] 05/03/2013 05/03/2013 More... Dyspnea [R06.09, R09.89] 05/03/2013 05/03/2013 More... S/P tonsillectomy [Z90.89] 05/03/2013 05/03/2013 S/P cholecystectomy [Z90.49] 05/03/2013 05/03/2013 S/P tubal ligation [Z98.51] 05/03/2013 05/03/2013 PVC's (premature ventricular contractions) [I49*05/08/2013 More... Palpitations [R00.2] 05/08/2013 Glaucoma [H40.9] Migraine [G43.909] SUMMARY [V999.95] 11/28/2013 More... CAD (coronary artery disease), robinson coronary *11/28/2013 More... Morbid obesity (HCC) [E66.01] 11/28/2013 More... Admission for therapeutic drug monitoring [Z51.*11/28/2013 More... Obesity, Class III, BMI >= 40 [E66.01] 02/27/2019 DON (obstructive sleep apnea) [G47.33] PVC (premature ventricular contraction) [I49.3] 05/03/2013 S/P gastric bypass [Z98.84] 04/17/2019 Encounter Status:Closed by GABINO SCOTT MA on 12/18/19 [facility] CNOVlaurent 06-13-2019 CNOV Office Visit (GENBMI ) ARIANE SANCHEZ ([id number]) 1975 F Date Time Provider Department 06/13/19 11:00 AM NATTY HILLMAN During your visit today, we recorded the following information about you: Weight Height Last Period 114.8 kg 1.605 m 06/11/19 Natty Hillman MD 06/16/2019 11:35 AM Signed Name: Ariane Sanchez Index Surgery Date of Surgery: 03/16/2019 Surgeon: Seiln Blackmon Surgical Procedure: LAPAROSCOPIC GASTRIC RESTRICTIVE SURG W/ BYPASS AND RACHELE-EN-Y Pre-surgical weight: 137.9 kg (304 lb) Override Index Surgery Information? No Other Bariatric Surgeries None Visit: 2 months Today's Visit: Wt 114.8 kg (253 lb) BMI 44.58 kg/m2 BMI 44.58 kg/(m2) Last Visit: Wt: 124.3 kg (274 lb) BMI: 48.28 kg/(m2) Total weight loss: 23.1 kg (51 lb) Tangent weight: 65.6 kg (144 lb 10.6 oz) Excess weight: 72.3 kg (159 lb 5.4 oz) % of excess body weight lost: 23.1 kg (51 lb) (32.01% of excess weight loss) COMPLICATIONS SINCE LAST VISIT?: NONE DIET INTAKE: tolerates Phase V diet, but throwing up a lot -states she does tolerate the diet for the most part -See Martha Alegria's [employer] notes below as part of shared medical/nutrition SMA DAILY SUPPLEMENTS: Calcium: Calcium Citrate w/ vitamin D (1200 - 1500mg) Multivitamin AND Minerals: TSB all in one with 45 mg of iron Iron Supplement: included in multi-vitamin Vitamin B12: included in MVI Vitamin D3: included in multi-vitamin Other: Pepcid and Biotin EXERCISE: walking-tries to walk as much as possible; takes stairs; exercise bike -not much strength/resistance training Are you attending any Support Groups? Online support group Current Outpatient Medications: famotidine (PEPCID) 20 mg tablet Take 1 tablet by mouth twice daily. brinzolamide (AZOPT) 1 % ophthalmic suspension Use 1 Drop in both eyes twice daily. loratadine 10 mg tablet Take 1 tablet by mouth once daily. acetaminophen 325 mg tablet Take 1-2 tablets by mouth every 4 hours as needed. aspirin, enteric coated (ADULT LOW DOSE ASPIRIN) 81 mg EC tablet Take 1 tablet by mouth once daily. No current facility-administered medications for this visit. REVIEW OF SYSTEMS: nausea and vomiting PHYSICAL EXAM: Ht 160.5 cm (5' 3.17 ) Wt 114.8 kg (253 lb) LMP 06/11/2019 BMI 44.58 kg/m? Gen: NAD, AANDOx3, obese, pleasant lady Heent: Throat clear, perrl Heart: RRR Lungs: CTAB Abd: Soft, NT, ND, scars look well-healed Ext: No edema noted A/P: 44 y/o lady status post: Laparoscopic Rachele-en-Y gastric bypass (120-cm antecolic antegastric Rachele limb, and 100-cm biliopancreatic limb), Esophagogastroscopy done on: 03/16/[address] Blackmon. 1)status post bariatric surgery. Indicates an eventual, long-term weight loss goal of: 160# Indicates the following as possible challenges to ongoing healthy lifestyle changes: none 2)Health issues which have improved/resolved since surgery: -DM, high blood pressure; cholesterol improved Intermittent nausea/vomiting-withi n seconds-sometimes if she eats too quickly, or doesn't agree with her. -chicken yifan doesn't agree with her. However, doesn't happen daily, or with every meal. She still feels able to get adequate protein/fluids most days. Advised her to continue to closely monitor her symptoms, and if worsens, or happens more frequently, regardless of type of food, then she will need to come in for further evaluation, including labs and EGD and to follow up with her bariatric surgeon. The patient expressed full understanding and agreement with the above. DISPOSITION: Return 3 month to Post-op follow up/ individual office visit EDUCATION: Pt encouraged to continue with positive lifestyle changes and daily/vitamin intake REFERRALS: Follow up with Bariatric surgeon if symptoms persist or worsen LABS: Today: none In 3 months: CBC W DIFF, CMP, Vitamin B12, Iron/ TIBC, Lipid panel, TSH, PTH Intact, Folate, 25 Hydroxy, HBA1C and B1 Greater than 50% of this 60 minute shared medical office visit facilitated by Rope Rider Marhta Alegria spent in education, discussion and development of a plan for the above. Natty Hillman MD - (OTHER): -04/13/2019: OV BMI/Neymar Hillman MD 06/13/2019 12:17 PM Signed Visit: 2 months Today's Visit: Wt 114.8 kg (253 lb) BMI 44.58 kg/m2 BMI 44.58 kg/(m2) Last Visit: Wt: 124.3 kg (274 lb) BMI: 48.28 kg/(m2) Total weight loss: 23.1 kg (51 lb) Tangent weight: 65.6 kg (144 lb 10.6 oz) Excess weight: 72.3 kg (159 lb 5.4 oz) % of excess body weight lost: 23.1 kg (51 lb) (32.01% of excess weight loss) Referring Provider: SELIN BLACKMON [[id number]] Allergies As of Date: 06/13/2019 Noted Allergy Reaction MORPHINE 05/03/2013 16 - Unknown Date Reviewed: 06/13/2019 Reviewed by: Gabino Scott Ma - Fully Assessed Reason for Visit: Established Patient [175] Primary Visit Diagnosis: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] Other Visit Diagnoses:S/P gastric bypass [Z98.84] Morbid obesity with BMI of 40.0-44.9, adult ([facility]) [E66.01, Z68.41] S/P bariatric surgery [Z98.84] Prescriptions as of 06/13/2019 Sig: FAMOTIDINE 20 MG TABLET Take 1 tablet by mouth twice * BRINZOLAMIDE 1 % EYE DROPS,TITUS* Use 1 Drop in both eyes twice* LORATADINE 10 MG TABLET Take 1 tablet by mouth once d* ACETAMINOPHEN 325 MG TABLET Take 1-2 tablets by mouth saurabh* ASPIRIN 81 MG TABLET,DELAYED * Take 1 tablet by mouth once d* Problem List As Of Date 06/13/2019 Noted Resolved PVC (premature ventricular contraction) [I49.3] INVALID FOR*05/03/2013 Cardiomyopathy, nonischemic [I42.8] INVALID FOR*05/03/2013 More... Obesity [E66.9] INVALID FOR*05/03/2013 Chest pain, atypical [R07.89] INVALID FOR*05/03/2013 Palpitations [R00.2] INVALID FOR*05/03/2013 More... Dyspnea [R06.09, R09.89] INVALID FOR*05/03/2013 More... S/P tonsillectomy [Z90.89] INVALID FOR*05/03/2013 S/P cholecystectomy [Z90.49] INVALID FOR*05/03/2013 S/P tubal ligation [Z98.51] INVALID FOR*05/03/2013 PVC's (premature ventricular contractions) [I49*INVALID FOR* More... Palpitations [R00.2] INVALID FOR* Glaucoma [H40.9] Migraine [G43.909] SUMMARY [V999.95] INVALID FOR* More... CAD (coronary artery disease), robinson coronary *INVALID FOR* More... Morbid obesity (HCC) [E66.01] INVALID FOR* More... Admission for therapeutic drug monitoring [Z51.*INVALID FOR* More... Obesity, Class III, BMI >= 40 [E66.01] INVALID FOR* DON (obstructive sleep apnea) [G47.33] PVC (premature ventricular contraction) [I49.3] INVALID FOR* S/P gastric bypass [Z98.84] INVALID FOR* Other instructions from your clinician: Visit: 2 months Today's Visit: Wt 114.8 kg (253 lb) BMI 44.58 kg/m2 BMI 44.58 kg/(m2) Last Visit: Wt: 124.3 kg (274 lb) BMI: 48.28 kg/(m2) Total weight loss: 23.1 kg (51 lb) Tangent weight: 65.6 kg (144 lb 10.6 oz) Excess weight: 72.3 kg (159 lb 5.4 oz) % of excess body weight lost: 23.1 kg (51 lb) (32.01% of excess weight loss) Disposition: Return in about 3 months (around 09/12/2019) for 6 month postop . Follow-up and Disposition History Recorded Encounter Status:Closed by NATTY HILLMAN MD on 06/16/19 [facility] PROGRESSon 06-13-2019 PROGRESS HNO ID: [id number] Author: Natty Hillman Service: ? Author Type: Physician Type: Progress Notes Filed: 06/16/2019 11:35 AM Note Text: Name: Ariane Sanchez Index Surgery Date of Surgery: 03/16/2019 Surgeon: Selin Blackmon Surgical Procedure: LAPAROSCOPIC GASTRIC RESTRICTIVE SURG W/ BYPASS AND RACHELE-EN-Y Pre-surgical weight: 137.9 kg (304 lb) Override Index Surgery Information? No Other Bariatric Surgeries None Visit: 2 months Today's Visit: Wt 114.8 kg (253 lb) BMI 44.58 kg/m2 BMI 44.58 kg/(m2) Last Visit: Wt: 124.3 kg (274 lb) BMI: 48.28 kg/(m2) Total weight loss: 23.1 kg (51 lb) Tangent weight: 65.6 kg (144 lb 10.6 oz) Excess weight: 72.3 kg (159 lb 5.4 oz) % of excess body weight lost: 23.1 kg (51 lb) (32.01% of excess weight loss) COMPLICATIONS SINCE LAST VISIT?: NONE DIET INTAKE: tolerates Phase V diet, but throwing up a lot -states she does tolerate the diet for the most part -See Martha Alegria's Rope Rider notes below as part of shared medical/nutrition SMA DAILY SUPPLEMENTS: Calcium: Calcium Citrate w/ vitamin D (1200 - 1500mg) Multivitamin AND Minerals: TSB all in one with 45 mg of iron Iron Supplement: included in multi-vitamin Vitamin B12: included in MVI Vitamin D3: included in multi-vitamin Other: Pepcid and Biotin EXERCISE: walking-tries to walk as much as possible; takes stairs; exercise bike -not much strength/resistance training Are you attending any Support Groups? Online support group Current Outpatient Medications: famotidine (PEPCID) 20 mg tablet Take 1 tablet by mouth twice daily. brinzolamide (AZOPT) 1 % ophthalmic suspension Use 1 Drop in both eyes twice daily. loratadine 10 mg tablet Take 1 tablet by mouth once daily. acetaminophen 325 mg tablet Take 1-2 tablets by mouth every 4 hours as needed. aspirin, enteric coated (ADULT LOW DOSE ASPIRIN) 81 mg EC tablet Take 1 tablet by mouth once daily. No current facility-administered medications for this visit. REVIEW OF SYSTEMS: nausea and vomiting PHYSICAL EXAM: Ht 160.5 cm (5' 3.17 ) Wt 114.8 kg (253 lb) LMP 06/11/2019 BMI 44.58 kg/m? Gen: NAD, AANDOx3, obese, pleasant lady Heent: Throat clear, perrl Heart: RRR Lungs: CTAB Abd: Soft, NT, ND, scars look well-healed Ext: No edema noted A/P: 44 y/o lady status post: Laparoscopic Rachele-en-Y gastric bypass (120-cm antecolic antegastric Rachele limb, and 100-cm biliopancreatic limb), Esophagogastroscopy done on: 03/16/[address] Blackmon. 1)status post bariatric surgery. Indicates an eventual, long-term weight loss goal of: 160# Indicates the following as possible challenges to ongoing healthy lifestyle changes: none 2)Health issues which have improved/resolved since surgery: -DM, high blood pressure; cholesterol improved Intermittent nausea/vomiting-withi n seconds-sometimes if she eats too quickly, or doesn't agree with her. -chicken yifan doesn't agree with her. However, doesn't happen daily, or with every meal. She still feels able to get adequate protein/fluids most days. Advised her to continue to closely monitor her symptoms, and if worsens, or happens more frequently, regardless of type of food, then she will need to come in for further evaluation, including labs and EGD and to follow up with her bariatric surgeon. The patient expressed full understanding and agreement with the above. DISPOSITION: Return 3 month to Post-op follow up/ individual office visit EDUCATION: Pt encouraged to continue with positive lifestyle changes and daily/vitamin intake REFERRALS: Follow up with Bariatric surgeon if symptoms persist or worsen LABS: Today: none In 3 months: CBC W DIFF, CMP, Vitamin B12, Iron/ TIBC, Lipid panel, TSH, PTH Intact, Folate, 25 Hydroxy, HBA1C and B1 Greater than 50% of this 60 minute shared medical office visit facilitated by Rope Rider Martha Alegria spent in education, discussion and development of a plan for the above. Natty Hillman MD - (OTHER): -04/13/2019: OV BMI/Raulian Normal [facility] CNCOon 04-17-2019 CNCO Letter Text Normal Labelle Cli alayna Labelle PROGRESSon 04-17-2019 PROGRESS HNO ID: [id number] Author: Selin Blackmon Service: ? Author Type: Physician Type: Progress Notes Filed: 04/17/2019 11:14 AM Note Text: Name: Ariane Sanchez Index Surgery Date of Surgery: 03/16/2019 Surgeon: Selin Blackmon Surgical Procedure: LAPAROSCOPIC GASTRIC RESTRICTIVE SURG W/ BYPASS AND RACHELE-EN-Y Pre-surgical weight: 137.9 kg (304 lb) Override Index Surgery Information? No Other Bariatric Surgeries None Visit: 4 weeks Today's Visit: Wt 124.3 kg (274 lb) BMI 48.28 kg/m2 BMI 48.28 kg/(m2) Last Visit: Wt: 127.5 kg (281 lb) BMI: 48.57 kg/(m2) Total weight loss: 13.6 kg (30 lb) Tangent weight: 65.6 kg (144 lb 10.6 oz) Excess weight: 72.3 kg (159 lb 5.4 oz) % of excess body weight lost: 13.6 kg (30 lb) (18.83% of excess weight loss) COMPLICATIONS SINCE LAST VISIT?: NONE DIET INTAKE: tolerates Phase V diet DAILY SUPPLEMENTS: Calcium: Calcium Citrate w/ vitamin D (1200 - 1500mg) Multivitamin AND Minerals: 1 per day Iron Supplement: included in multi-vitamin Vitamin A: included in multi-vitamin Vitamin B12: 500 mcg B Complex: No Biotin: No Vitamin C: included in multi-vitamin Vitamin D3: included in multi-vitamin Vitamin E: included in multi-vitamin Zinc: included in multi-vitamin Other: N/A Current Outpatient Medications: famotidine (PEPCID) 20 mg tablet Take 1 tablet by mouth twice daily. brinzolamide (AZOPT) 1 % ophthalmic suspension Use 1 Drop in both eyes twice daily. loratadine 10 mg tablet Take 1 tablet by mouth once daily. acetaminophen 325 mg tablet Take 1-2 tablets by mouth every 4 hours as needed. aspirin, enteric coated (ADULT LOW DOSE ASPIRIN) 81 mg EC tablet Take 1 tablet by mouth once daily. No current facility-administered medications for this visit. ACTIVE PROBLEM LIST Pvc's (Premature Ventricular Contractions) Palpitations Glaucoma Migraine Summary Cad (Coronary Artery Disease), [place] Coronary Artery Morbid Obesity (Hcc) Admission for Therapeutic Drug Monitoring Obesity, Class III, BMI >= 40 Don (Obstructive Sleep Apnea) Pvc (Premature Ventricular Contraction) REVIEW OF SYSTEMS: CONSTITUTIONAL: Patient denies fevers, chills, sweats and weight changes. EYES: Patient denies any visual symptoms. EARS, NOSE, AND THROAT: No difficulties with hearing. No symptoms of rhinitis or sore throat. CARDIOVASCULAR: Patient denies chest pains, palpitations, orthopnea and paroxysmal nocturnal dyspnea. RESPIRATORY: No dyspnea on exertion, no wheezing or cough. GI: No nausea, vomiting, diarrhea, constipation, abdominal pain, hematochezia or melena. : No urinary hesitancy or dribbling. No nocturia or urinary frequency. No abnormal urethral discharge. MUSCULOSKELETAL: No myalgias or arthralgias. NEUROLOGIC: No chronic headaches, no seizures. Patient denies numbness, tingling or weakness. PSYCHIATRIC: Patient denies problems with mood disturbance. No problems with anxiety. ENDOCRINE: No excessive urination or excessive thirst. DERMATOLOGIC: Patient denies any rashes or skin changes. PHYSICAL EXAM: PHYSICAL EXAMINATION: BP 130/84 (BP Site: Right Arm, BP Position: Sitting, BP Cuff Size: Large Adult) Pulse 74 Ht 160.5 cm (5' 3.17 ) Wt 124.3 kg (274 lb) BMI 48.28 kg/m? GENERAL: No apparent distress. Pt is alert and oriented x3. VITAL SIGNS: HR, BP, Temp; Normal HEENT: Head is normocephalic and atraumatic. Extraocular muscles are intact. Pupils are equal, round, and reactive to light and accommodation. Nares appeared normal. Mouth is well hydrated and without lesions. Mucous membranes are moist. Posterior pharynx clear of any exudate or lesions. NECK: Supple. No carotid bruits. No lymphadenopathy or thyromegaly. LUNGS: Clear to auscultation. HEART: Regular rate and rhythm without murmur. ABDOMEN: Soft, nontender, and nondistended. Positive bowel sounds. No hepatosplenomegaly was noted. EXTREMITIES: Without any cyanosis, clubbing, rash, lesions or edema. NEUROLOGIC: Cranial nerves II through XII are grossly intact. PSYCHIATRIC: Flat affect, but denies suicidal or homicidal ideations. SKIN: No ulceration or induration present. Assessment A/P: Normal post-OP course DISPOSITION: Return 1 year to Post-op follow up/ individual office visit EDUCATION: Pt encouraged to continue with positive lifestyle changes and daily/vitamin intake REFERRALS: N/A Selin Blackmon MD Advanced Laparoscopic and Bariatric Surgery Normal [facility] CNCNPATEDon 04-13-2019 CNCNPATED Education (GENBMI) ARIANE SANCHEZ ([id number]) 1975 F Date Time Provider Department 04/13/19 12:00 PM MARTHA ALEGRIA (RD) GENI Reason for Visit: Patient Education [91] Reassessment [674] Progress Notes: Martha Alegria RD 04/13/2019 4:19 PM Signed AMBULATORY PATIENT EDUCATION NOTE-Shared Nutrition Group TOPIC: LIFE STYLE CHANGES: Post-op weight loss surgery: Diet and Exercise READINESS TO LEARN COGNITIVE ABILITY: Alert and oriented MOTIVATION TO LEARN: Eager FAMILY SUPPORT: High - Very involved in pt care INSTRUCTION PROVIDED TO: Patient And mother PATIENT LEARNS BEST BY: Individual Instruction FACTORS AFFECTING LEARNING: None PHYSICAL LIMITATIONS AFFECTING LEARNING: None LEARNING RESPONSE DIAGNOSIS:Altered Gastrointestinal Tract Function, related to; alterations in GI anatomical structure, e.g. Rachele en Y, as evidenced by change to oral intake food and fluids, surgical report Malnutrition Screening Significant unintentional weight loss? No Eating less than 75% of usual intake for more than 2 weeks? No Nutritional status: No Malnutrition Identified METHOD OF INSTRUCTION: Individual instruction Group class instruction PATIENT / FAMILY RESPONSE: Nutrition outcome statement: Expect attention to diet to assist with weight management and minimum 1200 calories/2 liters of fluids per day. Patient participated in a post-op shared nutrition group. Post-op weight loss surgery (Rachele en Y Gastric Bypass) 1 month. Weight loss: 65 lbs since initial assessment (339 lbs); 31% loss excess body weight (208 lbs). Pre surgery weight: 303 lbs. Weight loss tracking as expected from surgery. Diet recall/group discussion indicates patient is tolerating phase 3 diet without difficulty. Protein needs estimated at 71-89 grams protein per day (1.2 - 1.5 g/kg IBW kg). Current intake 64 grams protein/day providing 90% minimum protein needs. Fluid consumption reported as 64 - 80 ounces/day - calorie free. Patient is taking recommended vitamin/minerals. Exercise includes 60-90 minutes of light intensity cardio/week. Reviewed nutrition principles of: 1. Continue to take all recommended vitamin/minerals including daily multivitamin complete, VIt D3 3,000 IU, Vit B12 500 mcg, Vit B - complex (with 75 - 100 mcg thiamine) Iron 45-60 mg and calcium citrate 4604-2935 mg/day 2. Protein goal: 71-89 grams protein/day 3. Fluid goal: 64 ounces per day (no carbonation, caffeine, calories, alcohol) 4. Exercise goal: increase as tolerated to goal of 200 minutes/week combination cardiovascular and strength training exercise. 5. Practice mindful eating habits-take small portions, eat slowly, chew thoroughly Patient is to follow-up: 2 months to access adherence to goals Referred/Supervised by: Neymar/Pritesh kovacs Billing Type: Group/30 minutes, 2 increment(s), 60 minutes Signed by: AIDA Sullivan RD 04/13/2019 4:18 PM Signed 1. Continue to take all recommended vitamin/minerals including daily multivitamin complete, VIt D3 3,000 IU, Vit B12 500 mcg, Vit B - complex (with 75 - 100 mcg thiamine) Iron 45-60 mg and calcium citrate 6149-1130 mg/day 2. Protein goal: 71-89 grams protein/day 3. Fluid goal: 64 ounces per day (no carbonation, caffeine, calories, alcohol) 4. Exercise goal: increase as tolerated to goal of 200 minutes/week combination cardiovascular and strength training exercise. 5. Practice mindful eating habits-take small portions, eat slowly, chew thoroughly Patient is to follow-up: 2 months to access adherence to goals Other instructions from your clinician: 1. Continue to take all recommended vitamin/minerals including daily multivitamin complete, VIt D3 3,000 IU, Vit B12 500 mcg, Vit B - complex (with 75 - 100 mcg thiamine) Iron 45-60 mg and calcium citrate 7608-1320 mg/day 2. Protein goal: 71-89 grams protein/day 3. Fluid goal: 64 ounces per day (no carbonation, caffeine, calories, alcohol) 4. Exercise goal: increase as tolerated to goal of 200 minutes/week combination cardiovascular and strength training exercise. 5. Practice mindful eating habits-take small portions, eat slowly, chew thoroughly Patient is to follow-up: 2 months to access adherence to goals Primary Visit Diagnosis:Class 3 severe obesity due to excess calories with body mass index (BMI) of 45.0 to 49.9 in adult, unspecified whether serious comorbidity present (HCC) [E66.01, Z68.42] Other Visit Diagnoses:Dietary counseling and surveillance [Z71.3] S/P gastric bypass [Z98.84] During your visit today, we recorded the following information about you: Weight Height 124.3 kg 1.605 m Allergies As of Date: 04/13/2019 Noted Allergy Reaction MORPHINE 05/03/2013 16 - Unknown Date Reviewed: 04/13/2019 Reviewed by: Martha (Rd) Dao - Fully Assessed Prescriptions as of 04/13/2019 Sig: FAMOTIDINE 20 MG TABLET Take 1 tablet by mouth twice * BRINZOLAMIDE 1 % EYE DROPS,TITUS* Use 1 Drop in both eyes twice* LORATADINE 10 MG TABLET Take 1 tablet by mouth once d* ACETAMINOPHEN 325 MG TABLET Take 1-2 tablets by mouth saurabh* ASPIRIN 81 MG TABLET,DELAYED * Take 1 tablet by mouth once d* Encounter Status:Closed by MAR[facility]13[facility] (GENBMI ) ARIANE SANCHEZ ([id number]) 1975 F Date Time Provider Department 04/13/19 11:00 AM SELIN BLACKMON During your visit today, we recorded the following information about you: Pulse Blood pressure Weight Height 74/minute 130/84 124.3 kg 1.605 m Selin Blackmon MD 04/17/2019 11:14 AM Signed Name: Ariane Sanchez Index Surgery Date of Surgery: 03/16/2019 Surgeon: Selin Blackmon Surgical Procedure: LAPAROSCOPIC GASTRIC RESTRICTIVE SURG W/ BYPASS AND RACHELE-EN-Y Pre-surgical weight: 137.9 kg (304 lb) Override Index Surgery Information? No Other Bariatric Surgeries None Visit: 4 weeks Today's Visit: Wt 124.3 kg (274 lb) BMI 48.28 kg/m2 BMI 48.28 kg/(m2) Last Visit: Wt: 127.5 kg (281 lb) BMI: 48.57 kg/(m2) Total weight loss: 13.6 kg (30 lb) Tangent weight: 65.6 kg (144 lb 10.6 oz) Excess weight: 72.3 kg (159 lb 5.4 oz) % of excess body weight lost: 13.6 kg (30 lb) (18.83% of excess weight loss) COMPLICATIONS SINCE LAST VISIT?: NONE DIET INTAKE: tolerates Phase V diet DAILY SUPPLEMENTS: Calcium: Calcium Citrate w/ vitamin D (1200 - 1500mg) Multivitamin AND Minerals: 1 per day Iron Supplement: included in multi-vitamin Vitamin A: included in multi-vitamin Vitamin B12: 500 mcg B Complex: No Biotin: No Vitamin C: included in multi-vitamin Vitamin D3: included in multi-vitamin Vitamin E: included in multi-vitamin Zinc: included in multi-vitamin Other: N/A Current Outpatient Medications: famotidine (PEPCID) 20 mg tablet Take 1 tablet by mouth twice daily. brinzolamide (AZOPT) 1 % ophthalmic suspension Use 1 Drop in both eyes twice daily. loratadine 10 mg tablet Take 1 tablet by mouth once daily. acetaminophen 325 mg tablet Take 1-2 tablets by mouth every 4 hours as needed. aspirin, enteric coated (ADULT LOW DOSE ASPIRIN) 81 mg EC tablet Take 1 tablet by mouth once daily. No current facility-administered medications for this visit. ACTIVE PROBLEM LIST Pvc's (Premature Ventricular Contractions) Palpitations Glaucoma Migraine Summary Cad (Coronary Artery Disease), [place] Coronary Artery Morbid Obesity (Hcc) Admission for Therapeutic Drug Monitoring Obesity, Class III, BMI >= 40 Don (Obstructive Sleep Apnea) Pvc (Premature Ventricular Contraction) REVIEW OF SYSTEMS: CONSTITUTIONAL: Patient denies fevers, chills, sweats and weight changes. EYES: Patient denies any visual symptoms. EARS, NOSE, AND THROAT: No difficulties with hearing. No symptoms of rhinitis or sore throat. CARDIOVASCULAR: Patient denies chest pains, palpitations, orthopnea and paroxysmal nocturnal dyspnea. RESPIRATORY: No dyspnea on exertion, no wheezing or cough. GI: No nausea, vomiting, diarrhea, constipation, abdominal pain, hematochezia or melena. : No urinary hesitancy or dribbling. No nocturia or urinary frequency. No abnormal urethral discharge. MUSCULOSKELETAL: No myalgias or arthralgias. NEUROLOGIC: No chronic headaches, no seizures. Patient denies numbness, tingling or weakness. PSYCHIATRIC: Patient denies problems with mood disturbance. No problems with anxiety. ENDOCRINE: No excessive urination or excessive thirst. DERMATOLOGIC: Patient denies any rashes or skin changes. PHYSICAL EXAM: PHYSICAL EXAMINATION: BP 130/84 (BP Site: Right Arm, BP Position: Sitting, BP Cuff Size: Large Adult) Pulse 74 Ht 160.5 cm (5' 3.17 ) Wt 124.3 kg (274 lb) BMI 48.28 kg/m? GENERAL: No apparent distress. Pt is alert and oriented x3. VITAL SIGNS: HR, BP, Temp; Normal HEENT: Head is normocephalic and atraumatic. Extraocular muscles are intact. Pupils are equal, round, and reactive to light and accommodation. Nares appeared normal. Mouth is well hydrated and without lesions. Mucous membranes are moist. Posterior pharynx clear of any exudate or lesions. NECK: Supple. No carotid bruits. No lymphadenopathy or thyromegaly. LUNGS: Clear to auscultation. HEART: Regular rate and rhythm without murmur. ABDOMEN: Soft, nontender, and nondistended. Positive bowel sounds. No hepatosplenomegaly was noted. EXTREMITIES: Without any cyanosis, clubbing, rash, lesions or edema. NEUROLOGIC: Cranial nerves II through XII are grossly intact. PSYCHIATRIC: Flat affect, but denies suicidal or homicidal ideations. SKIN: No ulceration or induration present. Assessment A/P: Normal post-OP course DISPOSITION: Return 1 year to Post-op follow up/ individual office visit EDUCATION: Pt encouraged to continue with positive lifestyle changes and daily/vitamin intake REFERRALS: N/A Selin Blackmon MD Advanced Laparoscopic and Bariatric Surgery Referring Provider: SELIN BLACKMON [[id number]] Allergies As of Date: 04/13/2019 Noted Allergy Reaction MORPHINE 05/03/2013 16 - Unknown Date Reviewed: 04/13/2019 Reviewed by: Martha Alegria - Fully Assessed Reason for Visit: Established Patient [175] Primary Visit Diagnosis:S/P gastric bypass [Z98.84] Prescriptions as of 04/13/2019 Sig: FAMOTIDINE 20 MG TABLET Take 1 tablet by mouth twice * BRINZOLAMIDE 1 % EYE DROPS,TITUS* Use 1 Drop in both eyes twice* LORATADINE 10 MG TABLET Take 1 tablet by mouth once d* ACETAMINOPHEN 325 MG TABLET Take 1-2 tablets by mouth saurabh* ASPIRIN 81 MG TABLET,DELAYED * Take 1 tablet by mouth once d* Problem List As Of Date 04/13/2019 Noted Resolved PVC (premature ventricular contraction) [I49.3] INVALID FOR*05/03/2013 Cardiomyopathy, nonischemic [I42.8] INVALID FOR*05/03/2013 More... Obesity [E66.9] INVALID FOR*05/03/2013 Chest pain, atypical [R07.89] INVALID FOR*05/03/2013 Palpitations [R00.2] INVALID FOR*05/03/2013 More... Dyspnea [R06.09, R09.89] INVALID FOR*05/03/2013 More... S/P tonsillectomy [Z90.89] INVALID FOR*05/03/2013 S/P cholecystectomy [Z90.49] INVALID FOR*05/03/2013 S/P tubal ligation [Z98.51] INVALID FOR*05/03/2013 PVC's (premature ventricular contractions) [I49*INVALID FOR* More... Palpitations [R00.2] INVALID FOR* Glaucoma [H40.9] Migraine [G43.909] SUMMARY [V999.95] INVALID FOR* More... CAD (coronary artery disease), [place] coronary *INVALID FOR* More... Morbid obesity (HCC) [E66.01] INVALID FOR* More... Admission for therapeutic drug monitoring [Z51.*INVALID FOR* More... Obesity, Class III, BMI >= 40 [E66.01] INVALID FOR* DON (obstructive sleep apnea) [G47.33] PVC (premature ventricular contraction) [I49.3] INVALID FOR* Encounter Status:Closed by SELIN BLACKMON MD on 04/17/19 [facility] PROGRESSon 04-13-2019 PROGRESS HNO ID: [id number] Author: Martha Alegria Service: ? Author Type: Registered Dietitian Type: Progress Notes Filed: 04/13/2019 4:19 PM Note Text: AMBULATORY PATIENT EDUCATION NOTE-Shared Nutrition Group TOPIC: LIFE STYLE CHANGES: Post-op weight loss surgery: Diet and Exercise READINESS TO LEARN COGNITIVE ABILITY: Alert and oriented MOTIVATION TO LEARN: Eager FAMILY SUPPORT: High - Very involved in pt care INSTRUCTION PROVIDED TO: Patient And mother PATIENT LEARNS BEST BY: Individual Instruction FACTORS AFFECTING LEARNING: None PHYSICAL LIMITATIONS AFFECTING LEARNING: None LEARNING RESPONSE DIAGNOSIS:Altered Gastrointestinal Tract Function, related to; alterations in GI anatomical structure, e.g. Rachele en Y, as evidenced by change to oral intake food and fluids, surgical report Malnutrition Screening Significant unintentional weight loss? No Eating less than 75% of usual intake for more than 2 weeks? No Nutritional status: No Malnutrition Identified METHOD OF INSTRUCTION: Individual instruction Group class instruction PATIENT / FAMILY RESPONSE: Nutrition outcome statement: Expect attention to diet to assist with weight management and minimum 1200 calories/2 liters of fluids per day. Patient participated in a post-op shared nutrition group. Post-op weight loss surgery (Rachele en Y Gastric Bypass) 1 month. Weight loss: 65 lbs since initial assessment (339 lbs); 31% loss excess body weight (208 lbs). Pre surgery weight: 303 lbs. Weight loss tracking as expected from surgery. Diet recall/group discussion indicates patient is tolerating phase 3 diet without difficulty. Protein needs estimated at 71-89 grams protein per day (1.2 - 1.5 g/kg IBW kg). Current intake 64 grams protein/day providing 90% minimum protein needs. Fluid consumption reported as 64 - 80 ounces/day - calorie free. Patient is taking recommended vitamin/minerals. Exercise includes 60-90 minutes of light intensity cardio/week. Reviewed nutrition principles of: 1. Continue to take all recommended vitamin/minerals including daily multivitamin complete, VIt D3 3,000 IU, Vit B12 500 mcg, Vit B - complex (with 75 - 100 mcg thiamine) Iron 45-60 mg and calcium citrate 9986-2479 mg/day 2. Protein goal: 71-89 grams protein/day 3. Fluid goal: 64 ounces per day (no carbonation, caffeine, calories, alcohol) 4. Exercise goal: increase as tolerated to goal of 200 minutes/week combination cardiovascular and strength training exercise. 5. Practice mindful eating habits-take small portions, eat slowly, chew thoroughly Patient is to follow-up: 2 months to access adherence to goals Referred/Supervised by: Neymar/Pritesh kovacs Billing Type: Group/30 minutes, 2 increment(s), 60 minutes Signed by: Martha Alegria RD [facility] Vital Signs Date Time Vital Sign Value Performing Clinician Brigitte salazar 06-20-2024 14:40-0400 Body height 162.56 cm [facility] 06-20-2024 14:40-0400 Body mass index (BMI) [Ratio] 38 kg/m2 [facility] 06-20-2024 14:40-0400 Body weight 100.69 kg [facility] 06-20-2024 14:40-0400 Diastolic blood pressure 78 mm[Hg] [facility] 06-20-2024 14:40-0400 Heart rate 74 /min [facility] 06-20-2024 14:40-0400 Respiratory rate 12 /min [facility] 06-20-2024 14:40-0400 Systolic blood pressure 122 mm[Hg] [facility] 02-01-2024 13:51-0400 Diastolic blood pressure 86 mm[Hg] [address] 02-01-2024 13:51-0400 Heart rate 53 /min [address] 02-01-2024 13:51-0400 Systolic blood pressure 128 mm[Hg] [address] 01-04-2024 08:47-0400 Body height 162.56 cm [facility] 01-04-2024 08:47-0400 Body mass index (BMI) [Ratio] 38.2 kg/m2 [facility] 01-04-2024 08:47-0400 Body weight 100.92 kg [facility] 01-04-2024 08:47-0400 Diastolic blood pressure 85 mm[Hg] [facility] 01-04-2024 08:47-0400 Heart rate 69 /min [facility] 01-04-2024 08:47-0400 Respiratory rate 16 /min [facility] 01-04-2024 08:47-0400 Systolic blood pressure 151 mm[Hg] [facility] 09-01-2023 15:00-0500 Body height 162.56 cm [facility] [employer] Other 09-01-2023 15:00-0500 Body mass index (BMI) [Ratio] 35.87 kg/m2 [facility] Other [employer] Other 09-01-2023 15:00-0500 Body weight 94.8 kg Gilles Ball Other [employer] Other 09-01-2023 15:00-0500 Diastolic blood pressure 82 mm[Hg] Gilles [facility] Other [employer] Other 09-01-2023 15:00-0500 Respiratory rate 12 /min Gilles [facility] Other [employer] Other 09-01-2023 15:00-0500 Systolic blood pressure 129 mm[Hg] [facility]illes [facility] Other [employer] Other 06-08-2023 14:30-0400 Body height 162.56 cm Gilles [facility] Other [employer] Other 06-08-2023 14:30-0400 Body mass index (BMI) [Ratio] 34.67 kg/m2 Gilles Ball Other [employer] Other 06-08-2023 14:30-0400 Body weight 91.63 kg Gilles Ball Other [employer] Other 06-08-2023 14:30-0400 Diastolic blood pressure 83 mm[Hg] Gilles Ball Other [employer] Other 06-08-2023 14:30-0400 Respiratory rate 12 /min Gilles Ball Other [employer] Other 06-08-2023 14:30-0400 Systolic blood pressure 159 mm[Hg] Gilles Ball Other [employer] Other 05-11-2023 10:15-0400 Body height 162.56 cm Gilles Ball Other [employer] Other 05-11-2023 10:15-0400 Body mass index (BMI) [Ratio] 34.02 kg/m2 Gilles Ball Other [employer] Other 05-11-2023 10:15-0400 Body weight 89.9 kg Gilles Ball Other [employer] Other 05-11-2023 10:15-0400 Diastolic blood pressure 88 mm[Hg] Gilles Ocsc Other [employer] Other 05-11-2023 10:15-0400 Respiratory rate 12 /min Gilles Ocsc Other [employer] Other 05-11-2023 10:15-0400 Systolic blood pressure 139 mm[Hg] Gilles Ball Other [employer] Other 12-05-2021 01:21-0400 Heart rate 67 /min London Harris MD Work Phone: [employer] 12-05-2021 01:21-0400 Respiratory rate 11 /min London Harris MD Work Phone: [employer] 12-05-2021 01:21-0400 SaO2% (BldA) [Mass fraction] 97 % London Harris MD Work Phone: [employer] 12-05-2021 01:16-0400 Diastolic blood pressure 73 mm[Hg] London Harris MD Work Phone: [employer] 12-05-2021 01:16-0400 Systolic blood pressure 151 mm[Hg] London Harris MD Work Phone: [employer] 12-04-2021 22:03-0400 Body temperature 98.2 [degF] London Harris MD Work Phone: [employer] 12-04-2021 21:56-0400 Body height 162.6 cm London Harris MD Work Phone: [employer] 12-04-2021 21:56-0400 Body mass index (BMI) [Ratio] 35.03 kg/m2 London Harris MD Work Phone: [employer] 12-04-2021 21:56-0400 Body weight 92.58 kg London Harris MD Work Phone: [employer] 03-24-2020 06:38-0400 Body Temperature 97.9 [degF] [facility] [place] 03-24-2020 06:38-0400 BP Diastolic 67 mm[Hg] [facility] [place] 03-24-2020 06:38-0400 BP Systolic 116 mm[Hg] [facility] Sarai [employer] [facility] , [place] 03-24-2020 06:38-0400 Pulse (Heart Rate) 78 /min [facility] [place] 03-24-2020 06:38-0400 Pulse Oximetry 98 % [facility] [place] 03-24-2020 06:38-0400 Respiratory Rate 16 /min [facility] [place] 03-24-2020 05:20-0400 BMI (Body Mass Index) 37.4 kg/m2 [facility] [place] 03-24-2020 05:20-0400 Body weight 98.84 kg Caren Sarai [employer] [facility] , [place] 03-23-2020 20:01-0400 Height 162.6 cm Caren Sarai [employer] [facility] , [place] 03-15-2020 09:09-0400 BMI (Body Mass Index) 36.61 kg/m2 [facility] [place] 03-15-2020 09:09-0400 Body Temperature 97.7 [degF] [facility] [place] 03-15-2020 09:09-0400 Body weight 96.75 kg [facility] [place] , [place] 03-15-2020 09:09-0400 BP Diastolic 84 mm[Hg] [facility] [place] , [place] 03-15-2020 09:09-0400 BP Systolic 135 mm[Hg] [facility] [place] , [place] 03-15-2020 09:090400 Height 162.6 cm [facility]- [place] , [place] 03-15-2020 09:09-0400 Pulse (Heart Rate) 64 /min [facility] [place] 03-15-2020 09:090400 Pulse Oximetry 99 % [facility] [place] 03-15-2020 09:09-0400 Respiratory Rate 18 /min [facility] [place] [place] Encounters Encounter Date Encounter Type Care Provider Facility Start: 06-27-2024 End: 06-27-2024 Patient encounter procedure DO Gilles Cong Work Phone: [facility] Work Phone: Start: 06-27-2024 End: 06-27-2024 ambulatory Gilles Gar Facility:[facility] Start: 06-20-2024 End: 06-20-2024 ambulatory [facility] Work Phone: Start: 06-20-2024 End: 06-20-2024 Encounter for general adult medical examination without abnormal findings [facility] Start: 06-20-2024 End: 06-20-2024 Patient encounter procedure [facility] Physician [facility] Work Phone: Start: 06-18-2024 Patient encounter status [facility] Start: 05-30-2024 End: 05-30-2024 ambulatory [facility] Work Phone: Start: 05-30-2024 End: 05-30-2024 Patient encounter procedure [facility] Physician [facility] Work Phone: Start: 02-01-2024 End: 02-02-2024 ambulatory [facility] Start: 02-01-2024 End: 02-01-2024 Subsequent hospital visit by physician Lucia Hines [place] [facility] Comment on above: Chest heaviness; Shortness of breath Start: 01-06-2024 End: 01-06-2024 ambulatory [facility] Amb[facility] Start: 01-04-2024 End: 01-04-2024 ambulatory [facility] Work Phone: Start: 01-04-2024 End: 01-04-2024 Patient encounter procedure [facility] Work Phone: Start: 01-03-2024 End: 01-03-2024 Emergency department patient visit [facility] Start: 09-15-2023 End: 09-15-2023 ambulatory Gilles Ball Other [employer] Other Start: 09-15-2023 Nursing evaluation o f patient and report Gilles Ball [facility] Start: 09-01-2023 End: 09-01-2023 ambulatory Gilles Ball Other [employer] Other Start: 09-01-2023 Office outpatient vi sit 15 minutes Gilles Ball [facility] Start: 09-01-2023 Telephone encounter Gilles Ball [facility] Start: 08-26-2023 End: 08-26-2023 ambulatory Gilles Ball Other [employer] Other Start: 08-26-2023 Telephone encounter Gilles Ball [facility] Start: 08-23-2023 End: 08-23-2023 ambulatory Gilles Ball Other [employer] Other Start: 08-23-2023 Telephone encounter Gilles Ball [facility] Start: 08-20-2023 End: 08-20-2023 ambulatory Gilles Ball Other [employer] Other Start: 08-20-2023 Telephone encounter Gilles Gar [facility] Start: 08-19-2023 End: 08-19-2023 [facility] Start: 07-14-2023 End: 07-14-2023 ambulatory Gilles Gar Other [employer] Other Start: 07-14-2023 Telephone encounter Gilles Gar [facility] Start: 07-13-2023 End: 07-13-2023 Patient encounter procedure DO Gilles Ball Work Phone: [facility] Work Phone: Start: 07-13-2023 End: 07-13-2023 ambulatory DO Gilles Cong Work Phone: [facility] Work Phone: Start: 07-03-2023 End: 07-03-2023 ambulatory Gilles Gar Other [employer] Other Start: 07-03-2023 Telephone encounter Gilles Gar [facility] Start: 06-08-2023 End: 06-08-2023 ambulatory Gilles Gar Other [employer] Other Start: 06-08-2023 Encounter for genera l adult medical examination without abnormal findings Gilles Gar [facility] Start: 06-08-2023 Periodic preventive med est patient 40-64yrs Gilles Gar [facility] Start: 06-08-2023 Telephone encounter Gilles Ball [facility] Start: 05-31-2023 End: 05-31-2023 ambulatory Gilles Ball Other [employer] Other Start: 05-31-2023 Telephone encounter Gilles Ball [facility] Start: 05-20-2023 End: 05-20-2023 ambulatory Gilles Cong Other [employer] Other Start: 05-20-2023 Telephone encounter Gilles Ball [facility] Start: 05-11-2023 End: 05-11-2023 ambulatory Gilles Gar Other [facility] [employer] Other Start: 05-11-2023 Encounter for genera l adult medical examination without abnormal findings Gilles [facility] Start: 05-11-2023 Office outpatient vi sit 15 minutes Gilles Gar [facility] Start: 05-11-2023 Telephone encounter [facility]illes [facility] Start: 06-30-2022 End: 06-30-2022 ambulatory DO Gilles Gar Work Phone: [facility] Work Phone: Start: 06-30-2022 End: 06-30-2022 Patient encounter procedure DO Gilles Cong Work Phone: [facility] Start: 06-30-2022 End: 07-01-[address] GILLES GAR Facility:[facility] Start: 04-30-2022 End: 05-01-[address] GILLES GAR Facility:[facility] Start: 12-18-2021 End: 12-19-[address] GILLES GAR Facility:[facility] Start: 12-12-2021 End: 12-13-[address] GILLES GAR Facility:[facility] Start: 12-05-2021 End: 12-07-2021 Subsequent hospital visit by physician [facility] Comment on above: Stroke-like symptoms Start: 12-04-2021 End: 12-05-2021 Emergency department patient visit London Harris MD Work Phone: [facility] ED Comment on above: Stroke-like symptoms (Primary Dx) Start: 09-08-2021 End: 09-09-[address] GILLES GAR Facility:[facility] Start: 01-08-2021 End: 01-10-2021 Subsequent hospital visit by physician [facility] Room 2 At [facility] Ultrasound Comment on above: Dorsalgia Start: 09-17-2020 End: 09-17-2020 [facility] Start: 03-27-2020 End: 03-27-2020 Subsequent hospital visit [facility] Comment on above: Postoperative nausea Start: 03-23-2020 End: 03-24-2020 Emergency department patient visit Caren Moon Work Phone: [facility] Comment on above: Postoperative vagina l bleeding following genitourinary procedure (Primary Dx) Start: 03-15-2020 End: 03-19-2020 Subsequent hospital visit by physician Mth Pre Admit Test Rm [facility] Comment on above: Pre-op testing Start: 11-10-2017 Ambulatory MOJEANAdela RENEROROToribio Faci lity:[id number] Start: 11-09-2017 Ambulatory MOURWINSOMEF RENEROROI Faci lity:[id number] Start: 11-09-2017 Ambulatory Facility:[id number] Procedures Date Procedure Procedure Detail Performing Clinician Start: 06-27-2024 Screening mammography of bilateral breasts DO [employer] Work Phone: Start: 02-01-2024 NUCLEAR STRESS TEST ROSALIA LEONARD Start: 02-01-2024 Cv strs tst xers&/or rx cont ecg trcg only Rosalia Leonard MD Work Phone: Start: 01-06-2024 ECG 12-LEAD ROSALIA LEONARD Start: 07-13-2023 Screening mammography of bilateral breasts DO [employer] Phone: Start: 06-30-2022 Screening mammography of bilateral breasts DO [employer] Phone: Start: 12-05-2021 Mri brain brain stem w/o contrast material London Harris MD Work Phone: Start: 12-04-2021 Ecg routine ecg w/least 12 lds w/i&r London Harris MD Work Phone: Start: 12-04-2021 Ct angiography neck w/contrast/noncontrast London Harris MD Work Phone: Start: 12-04-2021 Ct head/brain w/o contrast material London Harris MD Work Phone: Start: 12-04-2021 End: 12-04-2021 Gluc bld gluc mntr dev cleared fda spec home use London Harris MD Work Phone: Start: 01-08-2021 [facility] real time w/image complete Gilles Gar DO Work Phone: Start: 09-17-2020 25 hydroxy includes fractions if performed Gilles Gar Work Phone: Start: 09-17-2020 Assay of folic acid serum Gilles Gar Work Phone: Start: 09-17-2020 Assay of parathormone Gilles Ocsc Work Phone: Start: 09-17-2020 Assay of thyroid stimulating hormone tsh Gilles Gar Work Phone: Start: 09-17-2020 Blood count complete auto&auto difrntl wbc Gilles Gar Work Phone: Start: 09-17-2020 Comprehensive metabolic panel Gilles Gar Work Phone: Start: 09-17-2020 Cyanocobalamin vitamin b-12 Gilles scruggs Work Phone: Start: 09-17-2020 Hemoglobin glycosylated a1c Gilles scruggs Work Phone: Start: 09-17-2020 Iron binding capacity Gilles Gar Work Phone: Start: 09-17-2020 Lipid panel Gilles Gar Work Phone: Start: 03-27-2020 Blood count complete auto&auto difrntl wbc Melvin Quinn Work Phone: Start: 03-27-2020 Comprehensive metabolic panel Melvin Quinn Work Phone: Start: 03-24-2020 Blood count hemoglobin Lennie Nunez Work Phone: Start: 03-23-2020 Ct abdomen & pelvis w/contrast material Lennie Nunez Work Phone: Start: 03-23-2020 Antibody screen Caren Sarai Start: 03-23-2020 BASIC METABOLIC PANEL W/ REFLEX TO MG FOR LOW K Lennie Nunez Work Phone: Start: 03-23-2020 Blood count complete auto&auto difrntl wbc Lennie Nunez Work Phone: Start: 03-23-2020 Blood typing serologic abo Lennie Nunez Work Phone: Start: 03-15-2020 Antibody screen Mth Rm Start: 03-15-2020 COVID-19 Sarabjit Manley Aguilar Work Phone: Start: 03-15-2020 Ecg routine ecg w/least 12 lds i&r only Melvin Quinn Work Phone: Start: 03-15-2020 EKG REPORT [facility] Scanning Start: 03-15-2020 Assay of magnesium Mlevin Quinn Work Phone: Start: 03-15-2020 Blood typing serologic abo Melvin Velásquez Hedg es Work Phone: Start: 03-15-2020 Comprehensive metabolic panel Melvin Quinn Work Phone: Start: 03-15-2020 Culture bacterial quanttative colony count urine Melvin Quinn Work Phone: Start: 03-15-2020 Blood count complete auto&auto difrntl wbc Melvin Quinn Work Phone: Start: 03-15-2020 Gonadotropin chorionic qualitative Melvin Quinn Work Phone: Start: 11-28-2013 History of coronary artery bypass grafting S/P CABG (coronary artery bypass graft) [facility] Plan of Treatment Date Care Activity Detail Author Start: 06-07-2026 Lipid [facility] Start: 09-17-2025 Lipid panel Lipid screen [facility] Work Phone: Start: 2025 Zoster Vaccines (1 of 2) Zoste r Vaccines (1 of 2) [facility] Start: 06-07-2024 Diabetes mellitus screening Diabetes Screening [facility] Start: 05-21-2024 Influenza vaccination Influenz a Vaccine (Season Ended) [facility] Start: 04-06-2024 End: 04-06-2024 Patient encounter procedure 04/06/2024 2:40 PM EDT Office Visit [facility] [address] [facility] [address] [place] [address] Rosalia Leonard MD [address] [facility] [place] [address] [facility] Start: 05-21-2023 COVID-19 Vaccine ( season) COVID-19 Vaccine ( season) [facility] Start: 06-07-2022 Lipid panel Lipid screen [facility] Start: 12-05-2021 End: 12-05-2022 MRI BRAIN WO CONTRAST MRI BRAIN WO CONTRAST Imaging STAT Stroke-like symptoms Expected: 12/05/2021, Expires: 12/05/2022 [facility] Work Phone: Comment on above: Expected: 12/05/2021 , Expires: 12/05/2022 Start: 05-21-2021 Influenza vaccination [facility] Start: 2020 Screening for malign ant neoplasm of colon [facility] Start: 05-21-2020 Influenza vaccination [place], [place] Start: 05-02-2020 End: 05-02-2020 Office Visit 05/02/2020 Office Visit Obstetrics and Gynecology Melvin Quinn MD [address] [facility] [address] [place] [address] [facility] Start: 02-17-2020 Screening for malign ant neoplasm of cervix Cervical cancer screen [place], [place] Start: 2015 Diabetes screen Diabetes screen [place], [place] Start: 2015 Lipid panel Lipid screen [place], [place] Start: 2015 Screening for malign ant neoplasm of breast Mammogram [facility] Start: 1997 DTaP/Tdap/Td Vaccine s (1 - Tdap) DTaP/Tdap/Td Vaccines (1 - Tdap) [facility] Start: 1996 Screening for malign ant neoplasm of cervix [facility] Start: 1994 DTaP/Tdap/Td vaccine (1 - Tdap) DTaP/Tdap/Td vaccine (1 - Tdap) [facility] Start: 1994 Hepatitis B Vaccines (1 of 3 - 19+ 3-dose series) Hepatitis B Vaccines (1 of 3 - 19+ 3-dose series) [facility] Start: 1993 Hepatitis C screening Hepatitis C [facility] Start: 1991 COVID-19 Vaccine (1) COVID-19 Vaccin e (1) [employer] Phone: Start: 1990 HIV screening HIV screen [facility] Start: 1987 Depression Screen Depression Screen [facility] Start: 1976 MMR Vaccines (1 of 1 - Standard series) MMR Vaccines (1 of 1 - Standard series) [facility] Start: 1975 Hepatitis C screening Hepatitis C [facility] Start: 1975 HIV screening HIV Screening [facility] Start: 1975 Lipid panel Lipid Panel [facility] Start: 1975 Screening for malign ant neoplasm of colon [facility] Start: 1975 Yearly Adult Physical Yearly Adult P hysical [facility] Comprehensive metabo lic 1999 panel - Serum or Plasma [facility] Comprehensive metabo lic 1999 panel - Serum or Plasma [facility] CT of chest [facility] EKG 12 Lead EKG 12 Lead ECG Routine 03/24/2020 9:27 AM [facility]T [facility] EKG 12 Lead ECG STAT 12/04/2021 11:14 PM EDT [facility] Work Phone: Fibrin D-dimer [Presence] in Platelet poor plasma by Latex agglutination [facility] Thiamine [Moles/volu me] in Blood [facility] End: 09-17-2020 Vitamin B1 Vitamin B1 Lab Routine Once for 1 Occurrences starting 09/17/2020 until 09/17/2020 [facility] Comment on above: Once for 1 Occurrenc es starting 09/17/2020 until 09/17/2020 Vitamin B1 Vitamin B1 Lab R outine 09/17/2020 10:50 AM EST [facility] Immunizations Immunization Date Immunization Notes Care Provider Fa tiffany 01-09-2021 COVID-19 Vaccine Pfi zer - Documentation Purposes Only Gilles Gar Other [facility] 12-19-2020 COVID-19 Vaccine Pfi zer - Documentation Purposes Only Gilles Gar Other [facility] 11-28-1994 pneumococcal polysaccharide vaccine, 23 valent Lucia 1 [facility] Work Phone: Payers Date Payer Category Payer Self-pay [id number] 2022 Private Health [facility] [id number] 2022-Present [address] [place] [address] [id number] 2014 Unknown [employer] xxxxxxxxx 2014-Present [phone] [address] [place] [address] xxxxxxxxx [id number] 2014 Unknown [id number] 1975 Unknown [id number] [id number]. 2.593 1975 Unknown [id number] 2.16.840.1.147709.3.579. 2.593 1975 Unknown [id number] 2.16.840.1.034824.3.579. 2.593 1975 Unknown [id number] 2.16.840.1.035083.3.579. 2.593 1975 Unknown [id number] 2.16.840.1.983364.3.579. 2.593 1975 Unknown [id number] 2.16.840.1.258134.3.579. 2.174 1975 Unknown [id number] 2.16.840.1.477993.3.579. 2.173 1975 Unknown [id number] 2.16.840.1.288928.3.579. 2.1244 1975 Unknown [id number] 2.16.840.1.195263.3.579. 2.1246 1975 Unknown [id number] 2.16.840.1.441747.3.579. 2.1245 1975 Unknown [id number] 2.16.840.1.505426.3.579. 2.1246 1975 Unknown [id number] 2.16.840.1.033910.3.579. 2.6 1975 Unknown [id number] 2.16.840.1.912388.3.579. 2.1246 1959 Unknown [id number] Unknown [id number] [id number] Unknown [id number] [id number]. 2.531 Social History Date Type Detail Facility Tobacco smoking status CAIS Unknown if ever smoked [facility] Start: 1975 Sex Assigned At Female M [facility] Start: 03-15-2020 End: 09-01-2023 Tobacco smoking status NHIS Never smoker [place] Start: 03-15-2020 End: 01-06-2024 Alcohol intake Current drinker of alcohol (finding) [place], [place] Start: 09-16-2015 Alcohol Comment Occasional [place], [place] Start: 1975 Sex Assigned At Not on file [place], [place] Exposure to SARS-CoV-2 (event) Unable to assess [place] Start: 05-02-2020 End: 01-06-2024 Tobacco use and exposure Never used [place], [place] Start: 12-04-2021 End: 01-06-2024 Alcohol intake [facility] Work Phone: Start: 11-04-2021 End: 02-01-2024 Exposure to SARS-CoV-2 (event) Not sure [employer] Work Phone: Start: 01-06-2024 Sex Assigned At N [facility] [employer] Other Start: 01-06-2024 Alcohol Comment [facility] Work Phone: Goals Date Patient Goal Desired Activity /State Clinical Notes 05-11-2023 to 09-15-2023 Note Date & Type Note Facility 09-15-2023 Evaluation note Encounter Date Diagnosis Assessment Notes Aug, Seasonal allergic reaction (ICD-10 - J30.2) [employer] Other 12-13-2023 Evaluation note* Encounter Date Diagnosis Assessment Notes Treatment Notes Treatment Clinical Notes Aug, Strain of neck muscle, subsequent encounter (ICD-10 - S16.1XXD) ROM exercises, heat/ice and lidocaine patch. Tylenol as needed. Aug, Contusion of left shoulder, subsequent encounter (ICD-10 - S40.012D) Ice/heat and rest. Full ROM shoulder present w/ minor aching. Tylenol as needed Aug, Dysfunction of both eustachian tubes (ICD-10 - H69.93) Flonase NS and saline rinse. Valsalva to open ET Aug, Suspected sleep apnea (ICD-10 - R29.818) Tired during daytime. Disrupted sleep pattern - stressed needs 7-78 hours of sleep - consistent sleep routine - Melatonin 3-5mg daily as needed - avoid Benadryl and sleep aids Refer to Sleep Clinic [employer] Other 12-07-2023 Evaluation note* Encounter Date Diagnosis Assessment Notes Treatment Notes Treatment Clinical Notes Aug, Thyroid nodule (ICD-10 - E04.1) US: 1.5cm TR3 nodule - 2021, 08/2023 [employer] Other 12-04-2023 Evaluation note* Encounter Date Diagnosis Assessment Notes Treatment Notes Treatment Clinical Notes Aug, Enlarged thyroid (ICD-10 - E04.9) [employer] Other 12-01-2023 Evaluation note* Encounter Date Diagnosis Assessment Notes Treatment Notes Treatment Clinical Notes Aug, Asymmetrical thyroid (ICD-10 - E07.9) [employer] Other 10-14-2023 Evaluation note* Encounter Date Diagnosis Assessment Notes Treatment Notes Treatment Clinical Notes Jun, NORA (generalized anxiety disorder) (ICD-10 - F41.1) [employer] Other 09-19-2023 Evaluation note* Encounter Date Diagnosis Assessment Notes Treatment Notes Treatment Clinical Notes May, Wellness examination (ICD-10 - Z00.00) Healthy diet and exercise. Reviewed age-appropriate preventive testing recommended. May, Chronic venous insufficiency (ICD-10 - I87.2) Avoid salt and elevate lower extremities, support stockings, inspect legs and feet daily for blisters and ulcerations. May, Gastroesophageal reflux disease with esophagitis without hemorrhage (ICD-10 - K21.00) Diet instructions: Smaller portions, avoid eating and laying flat, avoid eating or drinking prior to bedtime. Weight loss. May, NORA (generalized anxiety disorder) (ICD-10 - F41.1) Healthy diet, exercise and keep active May, Mild episode of recurrent major depressive disorder (ICD-10 - F33.0) Healthy diet, exercise and keep active. Recommended initiation of SNRI Perimenopause condition contributing. May, Primary osteoarthrit is of both knees (ICD-10 - M17.0) Quad exercises, ice/heat and Tylenol. Continued weight loss. Avoid squatting or kneeling. May, Other obesity due to excess calories (ICD-10 - E66.09) This patient has been instructed on a low-fat, high-fiber diet. They are instructed to reduce calories, portion sizes and snacks. It is recommended that they exercise for 30 minutes, 3-5 times weekly. May, Body mass index [BMI ] 34.0-34.9, adult (ICD-10 - Z68.34) May, Other Avoidance stressed and discussed use of OTC Claritin and Flonase [employer] Other 09-19-2023 Evaluation note* Encounter Date Diagnosis Assessment Notes Treatment Notes Treatment Clinical Notes May, NORA (generalized anxiety disorder) (ICD-10 - F41.1) [employer] Other 09-11-2023 Evaluation note* Encounter Date Diagnosis Assessment Notes Treatment Notes Treatment Clinical Notes May, NORA (generalized anxiety disorder) (ICD-10 - F41.1) [employer] Other 08-22-2023 Evaluation note* Encounter Date Diagnosis Assessment Notes Treatment Notes Treatment Clinical Notes Apr, Chronic venous insufficiency (ICD-10 - I87.2) Avoid salt and elevate lower extremities, support stockings, inspect legs and feet daily for blisters and ulcerations. Apr, Lower extremity edema (ICD-10 - R60.0) Discussed possible etiology: liver, kidney and cardiac causes Dietary high in salt may contribute Medications may contribute: instructed to avoid NSAIDs Heat may cause excessive fluid to collect Labs ordered Echo last year w/ normal LVEF Apr, NORA (generalized anxiety disorder) (ICD-10 - F41.1) Initiate Venlafaxine May assist w/ menopause symptoms Not associated w/ weight gain Healthy diet, exercise and keep active [employer] Other 08-22-2023 Evaluation note* Encounter Date Diagnosis Assessment Notes Treatment Notes Treatment Clinical Notes Apr, Wellness examination (ICD-10 - Z00.00) [employer] Other Evaluation note* Diagnosis Dorsalgia Pain in thoracic spine documented in this encounter [employer] Phone: [email or web address] note* Diagnosis Stroke-like symptoms- Primary Other symptoms involving nervous and musculoskeletal systems documented in this encounter [employer] Phone: [email or web address] note* Diagnosis Stroke-like symptoms Other symptoms involving nervous and musculoskeletal systems documented in this encounter [employer] Phone: [email or web address] noteNo assessment information available [facility] Work Phone: Evaluation noteNo InformationNortDepartment of [facility] TranslationExchange Other Evaluation note* Diagnosis Onset Date Resolution Status Chest pain acute Dyspnea acute [facility] Work Phone: Evaluation note* Diagnosis Chest heaviness Other chest pain Shortness of breath documented in this encounter [facility] Work Phone: Evaluation note* Diagnosis Onset Date Resolution Status Asthma acute GERD (gastroesophageal reflux disease) acute Hypertrophic cardiomyopathy acute PVCs (premature ventricular contractions) acute Screening for colon cancer a cute Screening mammogram for breast cancer acute Wellness examination acute [facility] Work Phone: Hisnfhm general Narrative - Reported* Type Description Date Medical History Trigeminy Surgical History cholecystectomy Surgical History Procedure:breast reduction;Dise ase: Surgical History Procedure:cardiac catheterizati on;Disease:chest pain Surgical History tubal ligation Surgical History breast reduction Surgical History Procedure:cholecystectomy;Disea se: Surgical History Procedure:Tonsillectomy;Disease : Surgical History tonsillectomy and adenoidectomy Surgical History Procedure:tubal ligation;Diseas e: Hospitalization History See [employer] Other Hishblq general Narrative - Reported* Type Description Date Medical History Trigeminy Medical History Thyroid nodule Surgical History cholecystectomy Surgical History Procedure:breast reduction;Dise ase: Surgical History Procedure:cardiac catheterizati on;Disease:chest pain Surgical History tubal ligation Surgical History breast reduction Surgical History Procedure:cholecystectomy;Disea se: Surgical History Procedure:Tonsillectomy;Disease : Surgical History tonsillectomy and adenoidectomy Surgical History Procedure:tubal ligation;Diseas e: Hospitalization History See Sx [employer] Other Hospital Discharge instructions* Attachments The following attachments cannot be sent through Care Everywhere. * Stroke: Secondary Prevention: General Info (Lithuanian) * MRI: Head (Lithuanian) documented in this encounterBaynetwork Work Phone: Summary Purpose Family History Relationship Condition Age at Onset Recorded Date/T toshia Not Specified Heart disease Unknown Hypertension Unknown Relationship Condition Age at Onset Recorded Date/T toshia mother Heart disease Unknown Hypertension Unknown Advance Directives Documents on File Type Date Recorded Patient Infrastructure Analyst Expl anation Advance Directives and Living Will Power of Eyeglass Assembler Latest Code Status on File Code Status Date Activated Date Inactivated Comments Full Code 03/20/2020 1:28 PM 03/21/2020 2:56 PM Full Code 03/20/2020 7:14 AM 03/20/2020 1:17 PM Documents on File Type Date Recorded Patient Infrastructure Analyst Expl anation ACP-Advance Directive ACP-Power of Eyeglass Assembler Documents on File Type Date Recorded Patient Infrastructure Analyst Expl anation ACP-Advance Directive ACP-Power of Eyeglass Assembler Latest Code Status on File Code Status Date Activated Date Inactivated Comments Full Code 03/20/2020 1:28 PM 03/21/2020 2:56 PM Full Code 03/20/2020 7:14 AM 03/20/2020 1:17 PM Advance Directive Response Recorded Date/ Time Advance Directives No October 14, 2017 2:07pm Assessments Diagnosis Pre-op testing Preoperative examination, unspecified Diagnosis Postoperative vaginal bleeding following genitourinary procedure Postoperative hematoma involving circulatory system following circulatory system procedure Diagnosis Postoperative nausea Other specified complications History of Present Illness * Ashley Kumar RN - 03/15/2020 9:00 AM EDT EKG and labs reviewed per Volodymyr NELSON; requested cardiac clearance due to hx of PVC in [facility]. * Ashley Kumar RN - 03/15/2020 9:00 AM EDT Patient instructed on the pre-operative, intra-operative, and post-operative process. Patient's surgery arrival time to the hospital and surgery start time confirmed for the day of surgery. Patient instructed on NPO status. Medication instructions reviewed with patient. Pre operative instruction sheet reviewed and given to patient in PAT. * Ashley Kumar RN - 03/15/2020 9:00 AM EDT [facility] Preadmission Testing Name: Ariane Sanchez : 1975 Patient (home) [phone] (work) Procedure: LAVHyst Date of Procedure: 03/20/2020 Surgeon: No att. providers found Ht: 5' 4 (162.6 cm) Wt: 213 lb 4.8 oz (96.8 kg) Wt method: Allergies: Allergies Allergen Reactions Morphine Hives Peanut allergy: No Latex Allergy Screening Tool Have you ever had a reaction to or been told by a physician that you have an allergy to latex or natural rubber?: No Vitals: 03/15/20 0909 BP: 135/84 Pulse: 64 Resp: 18 Temp: 97.7 F (36.5 C) SpO2: 99% Patient's last menstrual period was 02/25/2020 (exact date). Do you take blood thinners? [] Yes [x] No Instructed to stop blood thinners prior to procedure? [] Yes [] No [x] N/A Do you have sleep apnea? [] Yes [x] No Instructed to bring CPAP machine? [] Yes [] No [x] N/A Do you have acid reflux ? [x] Yes [] No Do you have hiatal hernia? [] Yes [x] No Do you ever experience motion sickness? [] Yes [x] No Have you had a respiratory infection or sore throat in last 4 weeks before surgery? [] Yes [x] No Do you have poorly controlled asthma or COPD? [] Yes [x] No Do you have a history of angina in the last month or symptomatic arrhythmia? [] Yes [] No Do you have significant central nervous system disease? [] Yes [x] No Have you had an EKG, labs, or chest xray in last 12 months? If yes provide copies to anesthesia [x] Yes [] No [x] Lab [] EKG [] CXR Have you had a stress test? [x] Yes [] No When/where: [facility] Was it normal? [x] Yes [] No Do you or your family have a history of Malignant Hyperthermia? [] Yes [x] No PAT Call/Visit Questions Person Interviewed: patient Relationship to Patient: self Surgery Time Verified: Yes Surgery Location Verified: Yes Patient Language: Lithuanian Medical History Reviewed: Yes NPO Status Reinforced: Yes Ride and Caregiver Arranged: Yes Ride Caregiver Provider: Ashley -- mother Patient Knows to Bring Current Medications: Yes Pre-AdmissionTesting Checklist Patient has been to this health system before?: Yes, W/in last 6 months Does patient refuse blood?: No Pre-existing DNR Comfort Care/DNR Arrest/DNI Order: No Healthcare Directive: Yes, patient has an advance directive for healthcare treatment Type of Healthcare Directive: Living will Helmet Binder needed: No Patient can read and write?: Yes [id number]: Does the patient want to have any new prescriptions delivered to bedside prior to discharge?: No History given by: Patient Providing self care at home?: Yes Discharge transport (for same day patients): Family Patient instructed on the pre-operative, intra-operative, and post-operative process? Yes Medication instructions reviewed with patient? Yes Pre operative instruction sheet reviewed and given to patient in PAT? Yes documented in this encounter* Christiane Porter RN - 03/24/2020 11:14 AM EDT Patient leaving floor at this time via wheelchair. Belongings in hand. * Christiane Porter RN - 03/24/2020 11:06 AM EDT Discharge instructions reviewed with patient and family at this time. Patient and family verbalize understanding, deny questions at this time. Will escort patient to private car shortly. * Christiane Porter RN - 03/24/2020 10:52 AM EDT Iron infusion stopped at this time. Patient tolerated this well. Will continue to monitor. * Christiane Porter RN - 03/24/2020 10:35 AM EDT Patient continues to tolerate iron infusion well, no s/s of allergic reaction noted. Will continue to monitor. * Christiane Porter RN - 03/24/2020 10:05 AM EDT Patient tolerating iron sucrose infusion well thus far. Patient denies symptoms of a reaction, resting quietly in bed with RR greater than 10 at this time. Will continue to monitor. * Christiane Porter RN - 03/24/2020 9:43 AM EDT Iron sucrose infusion started at this time. Patient educated to call if feeling any symptoms of an allergic reaction. Will monitor patient. * Amada Rodriguez RN - 03/24/2020 5:01 AM EDT Received call from Dr. Moon inquiring about the results of patients H&H draw, informed doctorthat it was 8.2. Doctor ordered for patient to get a one time dose of IV Venofer 200 mg prior to discontinuing patient's IV. Doctor also gave order to discharge patient after dose of Venofer was finished. * Neetu Matthew RN - 03/23/2020 11:28 PM EDT Patient denies needing pain medication at this time. Patient education on pain medication availableand how often. * Neetu Matthew RN - 03/23/2020 10:00 PM EDT Patient given snacks per request. Patient is lying comfortably in bed with call light, bedside table and personal belonging within reach. Patient is independent in room at this time and call appropriate if in need of assistance. * Neetu Matthew RN - 03/23/2020 9:[address] Astorga called back at this time. Sales And Marketing Vice President gave information about patient to physician. Dr. Macias see patient in the morning. * Neetu Matthew RN - 03/23/2020 9:[address] Astorga was contacted at this time. Sales And Marketing Vice President spoke with answering service who sent a message to Dr. Astorga about the consult to hospitalist. No orders needed at this time. No call back needed. * Neetu Matthew RN - 03/23/2020 9:09 PM EDT Patient reports that she is not having any bleeding at this time. Will continue to monitor. * Neetu Matthew RN - 03/23/2020 8:30 PM EDT Patient is admitted to the hospital for post surgical bleeding to a significant amount. Patient states bleeding has slowed down and almost stopped since coming up the med surg floor. Patient is A+O. Denies dizziness, uneasiness on feet or difficulty moving around/walking. Patient is comfortable with being independent in room. Patients lungs are clear, the lower abdomen is slightly tender. Patient has a healing surgical incision across the bottom of the abdomen. No edema present. Vital signs are good. Patient has a hx of heart cath and gastric bypass surgery as well as gall bladder removal. Vitals, assessment and navigator complete. * Neetu Matthew RN - 03/23/2020 7:55 PM EDT [facility] from ER at this time. documented in this encounter Discharge Instructions * Discharge Instr - Activity* Christiane Porter RN - 03/24/2020 10:47 AM EDT As tolerated. * Discharge Instr - Diet* Christiane Porter RN - 03/24/2020 10:48 AM EDT ? Good nutrition is important when healing from an illness, injury, or surgery. Follow any nutrition recommendations given to you during your hospital stay. ? If you were given an oral nutrition supplement while in the hospital, continue to take this supplement at home. You can take it with meals, in-between meals, and/or before bedtime. These supplements can be purchased at most local grocery stores, pharmacies, and chain super-stores. ? If you have any questions about your diet or nutrition, call the hospital and ask for the dietitian. General diet. * Additional Instructions* Christiane Porter RN - 03/24/[address] Quinn in 1-2 weeks. * Attachments The following attachments cannot be sent through Care Everywhere. * Surgery: Post-op Bleeding (Lithuanian) documented in this encounter Reason for Referral Status Reason Specialty Diagnoses / Procedures Referre d By Contact Referred To Contact Open Radiology Diagnoses Dorsalgia Procedures US RENAL COMPLETE Gilles Gar DO [address] [place] [address] [facility] [address] [place] [address] Specialty Diagnoses / Procedures Referred By Contac t Referred To Contact Radiology Diagnoses Stroke-like symptoms Procedures MRI BRAIN WO CONTRAST London Harris MD [address] [place] [address] Referral ID Status Reason Start Date Expiration Date Visits Re quested Visits Authorized Open 12/05/2021 12/05/2022 1 1 Referral ID Status Reason Start Date Expiration Date Visits Re quested Visits Authorized Closed 12/05/2021 12/05/2022 1 1 Specialty Diagnoses / Procedures Referred By Contac t Referred To Contact Radiology Diagnoses Chest heaviness Shortness of breath Procedures Nuclear Stress Test CHG MYOCARDIAL SPECT MULTIPLE STUDIES Rosalia Leonard MD [address] [facility] 2, [address] [address] Referral ID Status Reason Start Date Expiration Date Visits Requested Visits Authorized [id number] Authorized Perform Procedure 01/06/2024 01/05/2025 5 5 Chief Complaint and Reason for Visit Chief Complaint Screening Chief Complaint ER follow up- izzy mariscal Reason for Visit Chest pain Dyspnea Chief Complaint allergy shot Chief Complaint allergy shot Wellness Reason for Visit Asthma GERD (gastroesophageal reflux disease) Hypertrophic cardiomyopathy PVCs (premature ventricular contractions) Screening for colon cancer Screening mammogram for breast cancer Wellness examination Chief Complaint allergy shot Wellness Screening mamm Reason for Visit Asthma GERD (gastroesophageal reflux disease) Hypertrophic cardiomyopathy PVCs (premature ventricular contractions) Screening for colon cancer Screening mammogram for breast cancer Wellness examination Additional Source Comments INFORMATION SOURCE (unrecogn ized section and content) DATE CREATED AUTHOR 03/11/2018 [facility] DATE CREATED AUTHOR AUTHOR'S ORGANIZ ATION 03/24/2018 [facility] DATE CREATED AUTHOR AUTHOR'S ORGANIZ ATION 04/11/2020 [facility] DATE CREATED AUTHOR AUTHOR'S ORGANIZ ATION 07/01/2022 [facility] DATE CREATED AUTHOR AUTHOR'S ORGANIZ ATION 08/21/2023 [facility] DATE CREATED AUTHOR AUTHOR'S ORGANIZ ATION 01/03/2024 [facility] DATE CREATED AUTHOR AUTHOR'S ORGANIZ ATION 02/05/2024 [facility] DATE CREATED AUTHOR AUTHOR'S ORGANIZ ATION 02/07/2024 [facility] DATE CREATED AUTHOR AUTHOR'S ORGANIZ ATION 06/29/2024 [facility] Reason for Visit (unrecogniz ed section and content) Reason Comments Vaginal Bleeding hysterectomy on of this past week. excessive bleeding with clots, 5 pads so far today Status Reason Specialty Diagnoses / Procedures Referre d By Contact Referred To Contact Open Radiology Diagnoses Dorsalgia Procedures US RENAL COMPLETE Gilles Gar, DO [address] [place] [address] [facility] Ultrasound [address] [place] [address] Reason Comments Numbness pt reports left side d facial numbness and left sided arm numbness that started about 30 minutes ago. Specialty Diagnoses / Procedures Referred By Ace kovacs Referred To Contact Radiology Diagnoses Stroke-like symptoms Procedures MRI BRAIN WO CONTRAST London Harris MD [address] [place] [address] Referral ID Status Reason Start Date Expiration Date Visits Re quested Visits Authorized [id number] Closed 12/05/2021 12/05/2022 1 1 Specialty Diagnoses / Procedures Referred By Ace kovacs Referred To Contact Radiology Diagnoses Chest heaviness Shortness of breath Procedures Nuclear Stress Test CHG MYOCARDIAL SPECT MULTIPLE STUDIES Rosalia Leonard MD [address] [place] [address], [facility] [address] [place] [address] Referral ID Status Reason Start Date Expiration Date Visits Requested Visits Authorized [id number] Authorized Perform Procedure 01/06/2024 01/05/2025 5 5 Ordered Prescriptions (unrec ognized section and content) Prescription Sig Dispensed Refills Start Date End Da te clopidogrel (PLAVIX) 75 MG tablet Take 1 tablet by mouth daily 30 tablet 1 12/05/2021 atorvastatin (LIPITOR) 40 MG tablet Take 1 tablet by mouth daily 30 tablet 1 12/05/2021 Scheduled Active and Recently Administ ered Medications (unrecognized section and content) Medication Order 12/03/2021 12/04/2021 12/05/2021 atorvastatin (LIPITOR) tablet 40 mg 40 mg, Oral, NIGHTLY, First dose on Wed12/05/21 at 0045 0118 (Given - Provid er: Reese Okeefe RN)2100 (Due) clopidogrel (PLAVIX) tablet 300 mg (COMPLETED) 300 mg, Oral, ONCE, On Wed12/05/21 at 0045, For 1 dose 0108 (Given - Provid er: Kvng Rodriguez RN) PRN Medication Order 12/03/2021 12/04/2021 12/05/2021 iopamidol (ISOVUE-370) 76 % injection 100 mL (COMPLETED) 100 mL, IntraVENous, IMG ONCE PRN, Other, Starting on Wed12/04/21 at 2250, For 1 dose 2308 (Given - Provider: Raúl Mabry) Care Teams (unrecognized sec tion and content) Handy Worker Relationship Specialty Start Date End Date Gilles Gar DO PCP - General 02/09/16 Handy Worker Relationship Specialty Start Date End Date Gilles Gar DO PCP - General 02/09/16 Team Status: Inactive Member Role Status Dates Gilles Gar DO Primary Care Provider, Referring Pr ovider Active Referral Self Attending Provider Active Team Status: Active Member Role Status Dates Gilles Gar DO Primary Care Provider Active Team Status: Inactive Member Role Status Dates Gilles Gar DO Primary Care Provider Active Referral Self Attending Provider Active Team Status: Inactive Member Role Status Dates Gilles Gar DO Primary Care Provide r, Attending Provider Active Start: January 04, 2024 End: January 04, 2024 Handy Worker Relationship Specialty Start Date End Date Gilles Gar DO PCP - General Internal Medicine 01/06/24 Handy Worker Relationship Specialty Start Date End Date Gilles Gar DO PCP - General Internal Medicine 01/06/24 Handy Worker Relationship Specialty Start Date End Date Gilles Gar DO PCP - General Internal Medicine 01/06/24 Handy Worker Relationship Specialty Start Date End Date Gilles Gar DO PCP - General Internal Medicine 01/06/24 Team Status: Inactive Member Role Status Dates Gilles Gar DO Primary Care Provide r, Attending Provider Active Start: May 30, 2024 End: May 30, 2024 Team Status: Inactive Member Role Status Dates Gilles Gar DO Primary Care Provide r, Attending Provider Active Start: June 20, 2024 End: June 20, 2024 Team Status: Inactive Member Role Status Dates Gilles Gar Primary Care Provider Active Start: June 27, 2024 End: June 27, 2024 Referral Self Attending Provider Active Start: O ct2023 End: June 27, 2024 Goals (unrecognized section and content) Goals may be documented in a n alternate sectionNo InformationNo InformationNo InformationNo InformationNo InformationNo InformationNo InformationGoals may be documented in an alternate sectionNo InformationNo InformationNo InformationNo InformationNo InformationNo InformationNo InformationNo InformationGoals may be documented in an alternate sectionGoals may be documented in an alternate sectionGoals may be documented in an alternate sectionGoals may be documented in an alternate section FOR RECORDS PERTAINING TO PATIENTS WHO ARE OR HAVE BEEN ENROLLED IN A CHEMICAL DEPENDENCY/SUBSTANCEABUSE PROGRAM, SOME INFORMATION MAY BE OMITTED. This clinical summary was aggregated from multiple sources. Caution should be exercised in using it in the provision of clinical care. This summary normalizes information from multiple sources, and as a consequence, information in this document may materially change the coding, format and clinical context of patient data. In addition, data may be omitted in some cases. CLINICAL DECISIONS SHOULD BE BASED ON THE PRIMARY CLINICAL RECORDS. [facility]. provides no warranty or guarantee of the accuracy or completeness of information in this document.
[2024-07-29 08:40] LABS: Basophils Absolute Auto 0.1 10^3/uL (0.0-0.1); Eosinophils Absolute Auto 0.2 10^3/uL (0.0-0.7); Eosinophils Percent Auto 4.3 % (0.9-7.0); Hematocrit 41.8 % (36.0-48.0); Hemoglobin 13.6 g/dL (12.0-16.0); Immature Granulocytes Abs Auto 0.02 10^3/uL (0.00-0.03); Immature Granulocytes Pct Auto 0.4 % (0.0-0.5); Lymphocytes Percent Auto 40.5 % (20.5-60.0); Mean Corpuscular HGB Conc 32.5 g/dL (29.9-35.2); Mean Corpuscular Volume 89.1 fL (81.0-99.0); Mean Platelet Volume 10.4 fL (9.5-13.5); Monocytes Absolute Auto 0.4 10^3/uL (0.3-0.8); Monocytes Percent Auto 7.1 % (1.7-12.0); Neutrophils Absolute Auto 2.3 10^3/uL (1.4-6.5); Neutrophils Percent Auto 46.7 % (43.0-75.0); Platelet Count 263 10^3/uL (150-450); Red Blood Count 4.69 10^6/uL (4.20-5.40); Red Cell Distribution Width 13.3 % (11.0-15.0); White Blood Count 4.9 10^3/uL (4.0-11.0)
[2024-07-29 09:35] LABS: Chloride 107 mmol/L (98-107); Potassium 4.6 mmol/L (3.5-5.1); Sodium 144 mmol/L (136-145)
[2024-07-29 09:36] LABS: Alanine Aminotransferase 24 U/L (14-59); Albumin Globulin Ratio 1.1; Albumin Level 3.6 g/dL (3.4-5.0); Alkaline Phosphatase 100 U/L (46-116); Aspartate Amino Transferase 20 U/L (15-37); BUN Creatinine Ratio 17.3; Bilirubin Total 0.7 mg/dL (0.2-1.0); Calcium 8.9 mg/dL (8.5-10.1); Carbon Dioxide 27.6 mmol/L (21.0-32.0); Cholesterol 226 mg/dL (<=200); Estimated GFR (African America >60 (>=60 mL/min/1.73m^2); Estimated GFR (Non-African Ame >60 (>=60 mL/min/1.73m^2); Globulin 3.4 g/dL; Glucose 79 mg/dL (74-106); HDL Cholesterol 85 mg/dL (40-60); Triglycerides 59 mg/dL (<=150); VLDL CHOLESTEROL 11.8 mg/dL
[2024-07-29 09:37] LABS: Chol HDL Ratio 2.7; Thyroid Stimulating Hormone 1.787 uIU/mL (0.358-3.740)
[2024-07-30 06:39] LABS: Vitamin B12 550 pg/mL (232-1245)
[2024-07-30 08:10] LABS: FSH 58.6 mIU/mL (.); Luteinizing Hormone(LH) 31.8 mIU/mL (.)
== END 2024-07-29 08:06 | disposition home or self-care (01) ==
LOC: LAB 08:05
PROVIDERS: PCP Internal Medicine; Visit Provider Internal Medicine
DX: Z00.00 Encounter for general adult medical examination without abnormal findings (principal); Z98.84 Bariatric surgery status; E66.01 Morbid (severe) obesity due to excess calories; Z68.38 Body mass index [BMI] 38.0-38.9, adult; R53.83 Other fatigue; R23.2 Flushing
CPT/HCPCS: 36415; 80053; 80061; 82306; 82533; 82607; 82728; 82746; 83001; 83002; 84425; 84443; 85025

== ENCOUNTER 2025-02-09 19:01 | Observation (INO) | payer OTHER, SELFPAY ==
--- OUTSIDE RECORDS SUMMARY | 2024-09-28 07:39 | XMS_ITS ---
Author Name Auto Generated Organization [facility] Care Team Providers Care Derrick Boat Runner Name Role Phone CASSIECHAR HALLMANLENNY Chapman Attending Unavailable Gilles Gar Primary Care Unavailable Elia Esquivel Admitting Unavailable Elia Esquivel Attending Unavailable Gilles Gar Primary Care Unavailable Elia Esquivel Admitting Unavailable Elia Esquivel Attending Unavailable Self, Referral Attending Unavailable Gilles Gar Primary Care Unavailable Self, Referral Admitting Unavailable PROBLEMS No Problem Records Found PROCEDURES No Procedure Records Found RESULTS CORTISOL, ACTH STIMULATION Collected: 09/06/2024 8:45 AM Status: F Source: [facility] TYPE CODE TESTS RESULT OUT OF RANGE REFERENCE UNITS LAB NNAMDI STIMULAT Cortisol, ACTH Stimulation Result Comment: Nnamdi Base 8. 1 Col: 09/06/24 0857 Nnamdi 30Min 18.4 Col: 09/06/24 0925 Nnamdi 60Min 22.1 Col: 09/06/24 1005 PERFORMED BY: [place] [address] PATHOLOGIST GUM SPRAYER MAYANK ZIMMERMAN M.D. Performed By: #### NNAMDI STIM ULAT #### [place] [id number] [facility] MM SCREENING MAMMO BI W/CAD Observed: 06/27/2024 4:06 PM Status: COMPLETED Source: [facility] Main Nancy [address] [place], [place] [id number] Mammography Report Signed Patient: Shelby Sanchez MR#: [id number] : 1975 Acct:[id number] Age/Sex: 49 / F ADM Date: 06/27/24 Loc: [place] Room: Type: [facility] Attending Dr: Referral Self Copies to: Gilles [...] Lazaro Suarez M.D.06/27/2024 4:07 PM Dictation Location: [facility] Transcribed By: [facility] 06/27/24 1607 Dictated By: Lazaro Suarez DO 06/27/24 1606 Signed By: <Electronically signed by Lazaro Suarez DO in OV> 06/27/24 1607 ALLERGIES No Allergies Records Found ENCOUNTERS ADMIT/DISCHARGE ACCOUNT NUMBER ADMITTING ENCOUNTER CLASS LOCATION SOURCE 09/28/2024/09/28/19 [id number] [facility]29/[facility]/08/29/20 [id number] [facility] 08/23/2024/08/23/20 [id number] Ambulatory Building:[facility] Specialists [facility] 06/27/2024/06/27/20 [id number] Self, [facility] PAYERS ENCOUNTER GUARANTOR PAYER SUBSCRIBER SOURCE 08/23/2024 SHELBY CORDOVA: [place] [address]Ijg: () Primary Insurance:HEALTH SCOPEPolicy Number: [id number] e Date:2023-09-20 FERNANDA CORDOVA: [id number] [place] [address] [facility] EPIC
--- OUTSIDE RECORDS SUMMARY | 2024-09-28 07:39 | XMS_ITS ---
Author Name Auto Generated Organization OHIP Care Team Providers Care Wafer Cleaner Name Role Phone CASSIECHAR HALLMANLENNY Chapman Attending [...] Collected: 09/06/2024 8:45 AM Status: F Source: [facility] TYPE CODE TESTS RESULT OUT OF RANGE REFERENCE UNITS LAB NNAMDI STIMULAT Cortisol, ACTH Stimulation Result Comment: Nnamdi Base 8. 1 Col: 09/06/24 0857 Nnamdi 30Min 18.4 Col: 09/06/24 0925 Nnamdi 60Min 22.1 Col: 09/06/24 1005 PERFORMED BY: [place] [address] PATHOLOGIST ELECTRICIAN MARINE MAYANK ZIMMERMAN M.D. Performed By: #### NNAMDI STIM ULAT #### [place] [id number] [facility] MM SCREENING MAMMO BI W/CAD Observed: 06/27/2024 4:06 PM Status: COMPLETED Source: [facility] [place] [address] [place], [place] [id number] Mammography Report Signed Patient: Shelby Sanchez MR#: [id number] : 1975 Acct:[id number] Age/Sex: 49 / F ADM Date: 06/27/24 Loc: OK Room: Type: [facility] Attending Dr: Referral Self Copies to: Gilles [...] Lazaro Suarez M.D.06/27/2024 4:07 PM Dictation Location: [facility] Transcribed By: [facility] 06/27/24 1607 Dictated By: Lazaro Suarez DO 06/27/24 1606 Signed By: <Electronically signed by Lazaro Suarez DO in OV> 06/27/24 1607 ALLERGIES No Allergies Records Found ENCOUNTERS ADMIT/DISCHARGE ACCOUNT NUMBER ADMITTING ENCOUNTER CLASS LOCATION SOURCE 09/28/2024/09/28/19 [id number] [facility] 08/29/2024/08/29/20 [id number] [facility] 08/23/2024/08/23/20 [id number] Ambulatory Building:[facility] 06/27/2024/06/27/20 [id number] Self, [facility] PAYERS ENCOUNTER GUARANTOR PAYER SUBSCRIBER SOURCE 08/23/2024 SHELBY CORDOVA: [place] [address]Ksb: () Primary Insurance:HEALTH SCOPEPolicy Number: [id number] e Date:2023-09-20 FERNANDA CORDOVA: [id number] [place] [address] [facility] EPIC
[2025-02-09] VITALS (60 sets, daily range): BP systolic 130–170; BP diastolic 61–120; PULSE 61–139; TEMP 36.7; O2SAT 98–100; BMI 37.8
--- NOTE | 2025-02-09 19:25 | ECG_ITS ---
[facility] Test Date: 2025-02-09 Pat Name: ARIANE WORTHINGTON Department: Room: - Gender: Female Motor Vehicle Clerk: : 1975 Requested By: [id number] Order Number: [id number] Reading MD: MAURICE GUILLEN M.D. Measurements Intervals [place] Rate: 78 P: 45 SD: 142 QRS: 15 QRSD: 134 T: 34 QT: 418 QTc: 452 Interpretive Statements 1100 Sinus rhythm 2550 Left bundle branch block 9150 abnormal ECG Compared to ECG 01/04/2024 10:51:58 Left bundle-branch block now present Ventricular premature complex(es) no longer present Electronically Signed On 02-10-2025 9:03:27 EDT by MAURICE GUILLNE M.D.
--- NOTE | 2025-02-09 19:25 | XR_ITS ---
[address] [address] Patient Name: ARIANE WORTHINGTON MRN: [id number] date: 1975 Sex: F Assigned Patient Location: ER Current Patient Location: ER Accession/Order Number: [id number] Exam Date: 02/09/2025 20:49 Report Date: 02/09/2025 20:49 At the request of: SHREE LEE Procedure: XR chest 1V Plain film chest Single view HISTORY: Chest pain for one hour COMPARISON: None FINDINGS: SUPPORT DEVICES: None POSTSURGICAL CHANGES: None HEART: Within normal limits PULMONARY MOISES: Within normal limits MEDIASTINUM: Unremarkable LUNGS AND PLEURA: No acute lung process, pleural effusion or pneumothorax identified. BONY STRUCTURES: Intact ADDITIONAL FINDINGS None XR/XR chest 1V IMPRESSION: No acute process. Impression dictated by: Lazaro Suarez M.D. 02/09/2025 8:49 PM Dictation Location: [place] [address] Electronically authenticated by: [id number] Y Date: 02/09/2025 20:49
[2025-02-09] MEDS: ASPIRIN 81 MG TAB.CHEW 324 MG PO (19:31)
[2025-02-09] MEDS: NITROGLYCERIN 0.4 MG BOTTLE PO (19:32)
--- NOTE | 2025-02-09 19:37 | ED.CHESTPAI1 ---
Documented by User: JESUS Roche 02/09/25 21:37 HPI - Chest Pain General Chief Complaint: Chest Pain Stated Complaint: CHEST PAINS Time Seen by Provider: 02/09/25 19:11 Source: patient Mode of arrival: walk-in Limitations: no limitations History of Present Illness HPI narrative: Patient is a 49-year-old female presents to the ER with concerns of chest pain. 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 She states she was lifting and pushing things when she developed substernal chest pain she describes as a tightness 8 out of 10 involving her back. She denies any nausea or vomiting. She denies any shortness of breath. She reports having episodes in the past with a heart cath in 2012 that she believes showed some blockage. She had a cardiac echo done 01/18/2024 that was grossly unremarkable. She appears anxious and tearful stating that her mother your heart attack at age 43. The patient states she does not take aspirin daily as she has a history of gastric bypass surgery. She appears acutely anxious regarding her symptoms on arrival. MD complaint: Reports chest pain and chest heaviness Timing of current episode: Reports constant Prior episodes: No Onset: Reports during exertion Pain location: Reports substernal Pain radiation: Reports back Severity: moderate Quality: Reports tightness and heaviness (squeezing) Relieving factors: Reports nothing Exacerbating factors: Reports nothing Context: Denies recent illness or recent surgery Associated symptoms: Denies nausea, vomiting or diaphoresis Treatment prior to arrival: Reports none Related Data Home Medications ?Medication ?Instructions ?Recorded ?Confirmed brimonidine 0.2 % eye drops 1 drp ophthalmic (eye) Q8H 01/04/24 02/09/25 latanoprost 0.005 % eye drops 1 drp ophthalmic (eye) DAILY 01/04/24 02/09/25 albuterol sulfate 90 mcg/actuation 2 puff inhalation Q6H PRN 02/09/25 02/09/25 aerosol inhaler shortness of breath or wheezing fluticasone propionate 115 2 puff inhalation Q12H PRN 02/09/25 02/09/25 mcg-salmeterol 21 mcg/actuation shortness of breath HFA inhaler Allergies Allergy/AdvReac Type Severity Reaction Status Date / Time morphine Allergy Severe Hives Verified 02/09/25 19:15 PFSH PFSH Social History Little interest or pleasure in doing things: not at all Feeling down, depressed, or hopeless: not at all Exam Narrative Exam Narrative: Nurses notes and vital signs reviewed and patient is not hypoxic. General: The patient appears anxious, minimally tearful. Patient is resting on cart. Skin: Warm, dry, no pallor noted. Head: Normocephalic, atraumatic Neck: Supple, trachea mid-line, no tenderness, no lymphadenopathy Eye: Pupils are equal, round and reactive to light, EOMI Ears, Nose, Mouth, and Throat: TM are clear, normal light reflex, oral mucosa is moist, no posterior oropharynx erythema or hypertrophy, uvula is mid-line Cardiovascular: Regular Rate and Rhythm Respiratory: Patient is in no distress, no accessory muscle use, lungs are clear to auscultation, no wheezing, rales or rhonchi. Chest Wall: no tenderness, no pleuritic pain reported. Back: non-tender, no CVA tenderness Musculoskeletal: normal ROM, no tenderness, mild nonpitting edema bilateral legs GI: Normal bowel sounds, no tenderness to palpation, no masses appreciated. No rebound, guarding, or rigidity noted. Neurological: A&O x4 Psychiatric: Cooperative Constitutional Vital Signs, click to edit/add: Last Vital Signs Temp 98.1 F 02/09/25 19:15 Pulse 64 02/09/25 22:50 Resp 19 02/09/25 22:50 BP 156/96 H 02/09/25 22:46 Pulse Ox 99 02/09/25 22:50 O2 Del Method Room Air 02/09/25 19:15 Course Vital Signs Vital signs: Vital Signs Temperature 98.1 F 02/09/25 19:15 Pulse Rate 86 02/09/25 19:15 Respiratory Rate 16 02/09/25 19:15 Blood Pressure 150/87 H 02/09/25 19:15 Pulse Oximetry 99 02/09/25 19:15 Oxygen Delivery Method Room Air 02/09/25 19:15 Temperature 98.1 F 02/09/25 19:15 Pulse Rate 64 02/09/25 22:50 Respiratory Rate 19 02/09/25 22:50 Blood Pressure 156/96 H 02/09/25 22:46 Pulse Oximetry 99 02/09/25 22:50 Oxygen Delivery Method Room Air 02/09/25 19:15 MDM - Chest Pain MDM Narrative Medical decision making narrative: Patient presented with 8 out of 10 chest tightness substernal radiating to her back she received 1 nitroglycerin with improvement in pain down to 6 out of 10, second nitroglycerin was improvement down to 5 out of 10. Her initial troponin is within normal limits her BNP was elevated. We acknowledged her history of gastric bypass and that she has not supposed to take NSAIDs but discussed her chest pain presentation warrants a dose of aspirin. She was given 324 mg p.o. chewed on arrival. She has had stable blood pressures and appears much more comfortable in the room. She has an allergy to morphine with hives. A repeat EKG showed resolution of previous significant left bundle branch block. She has family present at bedside and a 1 hour high sensitive troponin is pending. Despite 3 sublingual troponins and patient looking clinically better has had continued pain down to a 5/10. She is given 50 mcg of IV fentanyl as she has a hive allergy to morphine. Is elevated Lab Data Labs: Lab Results 02/09/25 02/09/25 Range/Units 20:00 21:25 WBC 7.1 (4.0-11.0) 10^3/uL RBC 4.41 (4.20-5.40) 10^6/uL Hgb 12.5 (12.0-16.0) g/dL Hct 38.5 (36.0-48.0) % MCV 87.3 (81.0-99.0) fL MCH 28.3 (26.7-34.0) pg MCHC 32.5 (29.9-35.2) g/dL RDW 13.2 (11.0-15.0) % Plt Count 255 (150-450) 10^3/uL MPV 11.3 (9.5-13.5) fL Neut % (Auto) 51.7 (43.0-75.0) % Lymph % (Auto) 35.5 (20.5-60.0) % [place] % (Auto) 7.6 (1.7-12.0) % Eos % (Auto) 4.2 (0.9-7.0) % Baso % (Auto) 0.7 (0.2-2.0) % Neut # (Auto) 3.7 (1.4-6.5) 10^3/uL Lymph # (Auto) 2.5 (1.2-3.8) 10^3/uL [place] # (Auto) 0.5 (0.3-0.8) 10^3/uL Eos # (Auto) 0.3 (0.0-0.7) 10^3/uL Baso # (Auto) 0.1 (0.0-0.1) 10^3/uL Abs Immat Gran (auto) 0.02 (0.00-0.03) 10^3/uL Imm/Tot Granulo (auto) 0.3 (0.0-0.5) % PT 10.7 (9.0-11.6) sec INR 1.01 APTT 25.4 (22.3-36.2) sec Sodium 145 (136-145) mmol/L Potassium 4.0 (3.5-5.1) mmol/L Chloride 106 (98-107) mmol/L Carbon Dioxide 30.0 (21.0-32.0) mmol/L Anion Gap 13.0 BUN 10.0 (7.0-18.0) mg/dL Creatinine 0.87 (0.55-1.02) mg/dL Est GFR ( Amer) >60 (>=60 mL/min/1.73m^2) Est GFR (Non-Af Amer) >60 (>=60 mL/min/1.73m^2) BUN/Creatinine Ratio 11.5 Glucose 110 H (74-106) mg/dL Calcium 8.9 (8.5-10.1) mg/dL Total Bilirubin 0.5 (0.2-1.0) mg/dL AST 28 (15-37) U/L ALT 27 (14-59) U/L Alkaline Phosphatase 113 (46-116) U/L Troponin I High Sens 8.1 8.0 (4.0-51.3) pg/mL NT-Pro-B Natriuret Pep 1225.0 H* (<=900.0) pg/mL Total Protein 7.3 (6.4-8.2) g/dL Albumin 3.8 (3.4-5.0) g/dL Globulin 3.5 g/dL Albumin/Globulin Ratio 1.1 Lipase 32.0 (16.0-77.0) U/L Imaging Data Chest x-ray: Attestation: I personally reviewed and interpreted this imaging study as follows: Radiologist's impression: ITS Impressions Chest X-Ray 02/09/25 19:25 IMPRESSION: No acute process. Impression dictated by: Lazaro Suarez M.D. 02/09/2025 8:49 PM Dictation Location: [email or web address][facility] Electronically authenticated by: [id number] Y Date: 02/09/2025 20:49 No acute process ECG Data Attestation: I personally reviewed and interpreted this ECG as follows: Interpretation: EKG interpretation: 19:25 Emergency Department physician interpretation, normal sinus rhythm 78 BPM, Left bundle branch block no ST segment elevation, T wave inversion V6. Prior Ekg 01/04/24: Sinus rhythm with pvc/ [place] Second EKG shows 66 bpm sinus rhythm no ST elevation T wave inversion no longer appreciated in V6, Discharge Plan Discharge Chief Complaint: Chest Pain Clinical Impression: Chest pain Patient Disposition: Admitted as Observation Time of Disposition Decision: 22:30 Documented by User: Christopher Moya 02/10/25 00:22 HPI - Chest Pain General Chief Complaint: Chest Pain Stated Complaint: CHEST PAINS Time Seen by Provider: 02/09/25 19:11 Related Data Home Medications ?Medication ?Instructions ?Recorded ?Confirmed brimonidine 0.2 % eye drops 1 drp ophthalmic (eye) Q8H 01/04/24 02/09/25 latanoprost 0.005 % eye drops 1 drp ophthalmic (eye) DAILY 01/04/24 02/09/25 albuterol sulfate 90 mcg/actuation 2 puff inhalation Q6H PRN 02/09/25 02/09/25 aerosol inhaler shortness of breath or wheezing fluticasone propionate 115 2 puff inhalation Q12H PRN 02/09/25 02/09/25 mcg-salmeterol 21 mcg/actuation shortness of breath HFA inhaler Allergies Allergy/AdvReac Type Severity Reaction Status Date / Time morphine Allergy Severe Hives Verified 02/09/25 19:15 PFSH PFSH Social History Little interest or pleasure in doing things: not at all Feeling down, depressed, or hopeless: not at all Exam Constitutional Vital Signs, click to edit/add: Last Vital Signs Temp 98.1 F 02/09/25 19:15 Pulse 64 02/09/25 22:50 Resp 19 02/09/25 22:50 BP 156/96 H 02/09/25 22:46 Pulse Ox 99 02/09/25 22:50 O2 Del Method Room Air 02/09/25 19:15 Course Vital Signs Vital signs: Vital Signs Temperature 98.1 F 02/09/25 19:15 Pulse Rate 86 02/09/25 19:15 Respiratory Rate 16 02/09/25 19:15 Blood Pressure 150/87 H 02/09/25 19:15 Pulse Oximetry 99 02/09/25 19:15 Oxygen Delivery Method Room Air 02/09/25 19:15 Temperature 98.1 F 02/09/25 19:15 Pulse Rate 64 02/09/25 22:50 Respiratory Rate 19 02/09/25 22:50 Blood Pressure 156/96 H 02/09/25 22:46 Pulse Oximetry 99 02/09/25 22:50 Oxygen Delivery Method Room Air 02/09/25 19:15 MDM - Chest Pain MDM Narrative Medical decision making narrative: Patient presented with 8 out of 10 chest tightness substernal radiating to her back she received 1 nitroglycerin with improvement in pain down to 6 out of 10, second nitroglycerin was improvement down to 5 out of 10. Her initial troponin is within normal limits her BNP was elevated. We acknowledged her history of gastric bypass and that she has not supposed to take NSAIDs but discussed her chest pain presentation warrants a dose of aspirin. She was given 324 mg p.o. chewed on arrival. She has had stable blood pressures and appears much more comfortable in the room. She has an allergy to morphine with hives. A repeat EKG showed resolution of previous significant left bundle branch block. She has family present at bedside and a 1 hour high sensitive troponin is pending. Despite 3 sublingual troponins and patient looking clinically better has had continued pain down to a 5/10. She is given 50 mcg of IV fentanyl as she has a hive allergy to morphine. Attending physician note -the PA and I discussed this patient's presentation. 2 sets of troponin are negative. I discussed this patient's case with the on-call telemetry hospitalist -Irena Skinner. I explained that due to the patient's family history of acute myocardial infarction at the age of 43, the patient's complaint of chest pain rating to the back that began just short time before arrival, and with the most recent catheterization from 2012 back with the patient weighed 300+ pounds, prior to her gastric bypass, as well as my concerns and the patient's EKG that we would admit this patient for further evaluation. The on-call hospitalist was agreeable and the patient was admitted to stepdown. All results and plan for disposition were explained to the patient and she was in agreement. DO STACI Lab Data Attestation: I reviewed the patient's lab results. Labs: Lab Results 02/09/25 02/09/25 Range/Units 20:00 21:25 WBC 7.1 (4.0-11.0) 10^3/uL RBC 4.41 (4.20-5.40) 10^6/uL Hgb 12.5 (12.0-16.0) g/dL Hct 38.5 (36.0-48.0) % MCV 87.3 (81.0-99.0) fL MCH 28.3 (26.7-34.0) pg MCHC 32.5 (29.9-35.2) g/dL RDW 13.2 (11.0-15.0) % Plt Count 255 (150-450) 10^3/uL MPV 11.3 (9.5-13.5) fL Neut % (Auto) 51.7 (43.0-75.0) % Lymph % (Auto) 35.5 (20.5-60.0) % Brooks % (Auto) 7.6 (1.7-12.0) % Eos % (Auto) 4.2 (0.9-7.0) % Baso % (Auto) 0.7 (0.2-2.0) % Neut # (Auto) 3.7 (1.4-6.5) 10^3/uL Lymph # (Auto) 2.5 (1.2-3.8) 10^3/uL [place] # (Auto) 0.5 (0.3-0.8) 10^3/uL Eos # (Auto) 0.3 (0.0-0.7) 10^3/uL Baso # (Auto) 0.1 (0.0-0.1) 10^3/uL Abs Immat Gran (auto) 0.02 (0.00-0.03) 10^3/uL Imm/Tot Granulo (auto) 0.3 (0.0-0.5) % PT 10.7 (9.0-11.6) sec INR 1.01 APTT 25.4 (22.3-36.2) sec Sodium 145 (136-145) mmol/L Potassium 4.0 (3.5-5.1) mmol/L Chloride 106 (98-107) mmol/L Carbon Dioxide 30.0 (21.0-32.0) mmol/L Anion Gap 13.0 BUN 10.0 (7.0-18.0) mg/dL Creatinine 0.87 (0.55-1.02) mg/dL Est GFR ( Amer) >60 (>=60 mL/min/1.73m^2) Est GFR (Non-Af Amer) >60 (>=60 mL/min/1.73m^2) BUN/Creatinine Ratio 11.5 Glucose 110 H (74-106) mg/dL Calcium 8.9 (8.5-10.1) mg/dL Total Bilirubin 0.5 (0.2-1.0) mg/dL AST 28 (15-37) U/L ALT 27 (14-59) U/L Alkaline Phosphatase 113 (46-116) U/L Troponin I High Sens 8.1 8.0 (4.0-51.3) pg/mL NT-Pro-B Natriuret Pep 1225.0 H* (<=900.0) pg/mL Total Protein 7.3 (6.4-8.2) g/dL Albumin 3.8 (3.4-5.0) g/dL Globulin 3.5 g/dL Albumin/Globulin Ratio 1.1 Lipase 32.0 (16.0-77.0) U/L Imaging Data Chest x-ray: Radiologist's impression: ITS Impressions Chest X-Ray 02/09/25 19:25 IMPRESSION: No acute process. Impression dictated by: Lazaro Suarez M.D. 02/09/2025 8:49 PM Dictation Location: [employer] Electronically authenticated by: [id number] Y Date: 02/09/2025 20:49 Heart Score History: Highly Suspicious ECG: NS Repolarization Age: >45-<65 years Risk Factors: >3 Risk Factors/ HX of CAD:2 Troponin: <Normal Limit Total Heart Score Recommendations & Risks:: 6 Discharge Plan Discharge Chief Complaint: Chest Pain Clinical Impression: Chest pain Patient Disposition: Admitted as Observation Time of Disposition Decision: 22:30
--- NOTE | 2025-02-09 20:12 | ECG_ITS ---
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 Measurements Intervals [place] Rate: 66 P: -4 TN: 118 QRS: 32 QRSD: 88 T: 32 QT: 420 QTc: 434 Interpretive Statements 1100 Sinus rhythm 2210 Short TN interval 9150 abnormal ECG Compared to ECG 02/09/2025 19:25:29 Short TN interval now present Left bundle-branch block no longer present Electronically Signed On 02-10-2025 9:06:13 EDT by MAURICE GUILLEN M.D.
[2025-02-09 20:13] LABS: Basophils Absolute Auto 0.1 10^3/uL (0.0-0.1); Basophils Percent Auto 0.7 % (0.2-2.0); Eosinophils Absolute Auto 0.3 10^3/uL (0.0-0.7); Eosinophils Percent Auto 4.2 % (0.9-7.0); Hematocrit 38.5 % (36.0-48.0); Hemoglobin 12.5 g/dL (12.0-16.0); Immature Granulocytes Abs Auto 0.02 10^3/uL (0.00-0.03); Immature Granulocytes Pct Auto 0.3 % (0.0-0.5); Lymphocytes Absolute Auto 2.5 10^3/uL (1.2-3.8); Lymphocytes Percent Auto 35.5 % (20.5-60.0); Mean Corpuscular HGB Conc 32.5 g/dL (29.9-35.2); Mean Corpuscular Hemoglobin 28.3 pg (26.7-34.0); Mean Corpuscular Volume 87.3 fL (81.0-99.0); Mean Platelet Volume 11.3 fL (9.5-13.5); Monocytes Absolute Auto 0.5 10^3/uL (0.3-0.8); Monocytes Percent Auto 7.6 % (1.7-12.0); Neutrophils Absolute Auto 3.7 10^3/uL (1.4-6.5); Neutrophils Percent Auto 51.7 % (43.0-75.0); Platelet Count 255 10^3/uL (150-450); Red Blood Count 4.41 10^6/uL (4.20-5.40); Red Cell Distribution Width 13.2 % (11.0-15.0); White Blood Count 7.1 10^3/uL (4.0-11.0)
[2025-02-09] MEDS: NITROGLYCERIN 0.4 MG BOTTLE SL (20:20)
[2025-02-09 20:32] LABS: INR 1.01; Partial Thromboplastin Time 25.4 sec (22.3-36.2); Prothrombin Time 10.7 sec (9.0-11.6)
[2025-02-09 20:35] LABS: Alanine Aminotransferase 27 U/L (14-59); Albumin Globulin Ratio 1.1; Albumin Level 3.8 g/dL (3.4-5.0); Alkaline Phosphatase 113 U/L (46-116); Aspartate Amino Transferase 28 U/L (15-37); BUN Creatinine Ratio 11.5; Bilirubin Total 0.5 mg/dL (0.2-1.0); Calcium 8.9 mg/dL (8.5-10.1); Chloride 106 mmol/L (98-107); Estimated GFR (African America >60 (>=60 mL/min/1.73m^2); Estimated GFR (Non-African Ame >60 (>=60 mL/min/1.73m^2); Globulin 3.5 g/dL; Glucose 110 mg/dL (74-106); Sodium 145 mmol/L (136-145); Total Protein 7.3 g/dL (6.4-8.2); Troponin I High Sensitivity 8.1 pg/mL (4.0-51.3)
[2025-02-09] MEDS: FENTANYL CITRATE/PF 100 MCG/2 ML VIAL 50 MCG IV (21:21)
[2025-02-10] VITALS (66 sets, daily range): BP systolic 126–176; BP diastolic 65–110; PULSE 54–100; TEMP 36.5–37.2; O2SAT 92–100; BMI 39.5
[2025-02-10 06:24] LABS: Basophils Percent Auto 0.6 % (0.2-2.0); Eosinophils Absolute Auto 0.3 10^3/uL (0.0-0.7); Eosinophils Percent Auto 5.2 % (0.9-7.0); Hematocrit 34.4 % (36.0-48.0); Hemoglobin 11.3 g/dL (12.0-16.0); Immature Granulocytes Abs Auto 0.01 10^3/uL (0.00-0.03); Immature Granulocytes Pct Auto 0.2 % (0.0-0.5); Lymphocytes Absolute Auto 2.3 10^3/uL (1.2-3.8); Lymphocytes Percent Auto 42.6 % (20.5-60.0); Mean Corpuscular HGB Conc 32.8 g/dL (29.9-35.2); Mean Corpuscular Hemoglobin 28.5 pg (26.7-34.0); Mean Corpuscular Volume 86.9 fL (81.0-99.0); Mean Platelet Volume 11.2 fL (9.5-13.5); Monocytes Absolute Auto 0.5 10^3/uL (0.3-0.8); Monocytes Percent Auto 9.9 % (1.7-12.0); Neutrophils Absolute Auto 2.2 10^3/uL (1.4-6.5); Neutrophils Percent Auto 41.5 % (43.0-75.0); Platelet Count 208 10^3/uL (150-450); Red Blood Count 3.96 10^6/uL (4.20-5.40); Red Cell Distribution Width 13.2 % (11.0-15.0); White Blood Count 5.4 10^3/uL (4.0-11.0)
[2025-02-10 06:45] LABS: Anion Gap 11.7; Carbon Dioxide 26.8 mmol/L (21.0-32.0); Chloride 109 mmol/L (98-107); Glucose 83 mg/dL (74-106); Potassium 3.5 mmol/L (3.5-5.1); Sodium 144 mmol/L (136-145)
[2025-02-10 06:46] LABS: Alanine Aminotransferase 20 U/L (14-59); Albumin Level 3.1 g/dL (3.4-5.0); Alkaline Phosphatase 93 U/L (46-116); Aspartate Amino Transferase 18 U/L (15-37); Bilirubin Total 0.5 mg/dL (0.2-1.0); Calcium 8.5 mg/dL (8.5-10.1); Estimated GFR (African America >60 (>=60 mL/min/1.73m^2); Estimated GFR (Non-African Ame >60 (>=60 mL/min/1.73m^2); Magnesium 1.8 mg/dL (1.8-2.4); Total Protein 6.1 g/dL (6.4-8.2); Troponin I High Sensitivity 8.9 pg/mL (4.0-51.3)
[2025-02-10 07:46] LABS: Glucometer 87 mg/dL (74-106)
[2025-02-10] MEDS: ACETAMINOPHEN 325 MG TABLET 650 MG PO (08:00)
[2025-02-10 08:03] LABS: Bilirubin Urine NEGATIVE (NEGATIVE); Blood Urine NEGATIVE (NEGATIVE); Clarity Urine CLEAR (CLEAR); Color Urine LT. YELLOW (YELLOW); Glucose Urine UA NEGATIVE (NEGATIVE); Ketones Urine TRACE mg/dL (NEGATIVE); Leukocyte Esterase Urine SMALL (NEGATIVE); Nitrite Urine NEGATIVE (NEGATIVE); Protein Urine NEGATIVE (NEG/TRACE)
[2025-02-10 08:12] LABS: Bacteria Urine TRACE #/HPF (NONE SEEN); Crystals Seen? None Seen #/HPF (None Seen); Mucus Urine NONE SEEN (NONE SEEN); RBC Urine 0-2 #/HPF (0-2); Squamous Epithelial Cell Urine FEW #/LPF (NONE/RARE)
[2025-02-10 08:13] LABS: Cast Seen? NONE SEEN #/LPF (NONE SEEN)
[2025-02-10 08:14] LABS: Urine Culture Indicated YES-FRMC
[2025-02-10 08:24] LABS: Amphetamine Screen Urine NEGATIVE (NEGATIVE); Barbiturates Screen Urine NEGATIVE (NEGATIVE); Benzodiazepines Screen Urine NEGATIVE (NEGATIVE); Buprenorphine Screen Urine NEGATIVE (NEGATIVE); Cannabinoid Screen Urine NEGATIVE (NEGATIVE); Cocaine Screen Urine NEGATIVE (NEGATIVE); Methadone Screen Urine NEGATIVE (NEGATIVE); Methamphetamines Screen Urine NEGATIVE (NEGATIVE); Opiate Screen Urine NEGATIVE (NEGATIVE); Oxycodone Screen Urine NEGATIVE (NEGATIVE); Phencyclidine Screen Urine NEGATIVE (NEGATIVE); Tricyclic Antidepressant Urine NEGATIVE (NEGATIVE)
--- NOTE | 2025-02-10 09:45 | P.DS_ITS ---
DS: Providers Provider Date of admission: 02/10/25 00:43 Primary care physician: Gilles Gar DO DS: Summary Time Spent with Patient Time attestation: Total time spent providing and/or coordinating discharge services: Exam Constitutional Vital Signs, click to edit/add: Last Vital Signs Temp 98.2 F 02/10/25 07:36 Pulse 64 02/10/25 08:01 Resp 21 H 02/10/25 08:01 BP 168/100 H 02/10/25 08:01 Pulse Ox 96 02/10/25 08:01 O2 Del Method Room Air 02/10/25 04:32 DS: Data Data Completed and Pending Labs on day of discharge: Labs from last 24 hours 02/10/25 02/10/25 02/09/25 07:45 05:52 21:25 WBC 5.4 RBC 3.96 L Hgb 11.3 L Hct 34.4 L MCV 86.9 MCH 28.5 MCHC 32.8 RDW 13.2 Plt Count 208 MPV 11.2 Neut % (Auto) 41.5 L Lymph % (Auto) 42.6 [place] % (Auto) 9.9 Eos % (Auto) 5.2 Baso % (Auto) 0.6 Neut # (Auto) 2.2 Lymph # (Auto) 2.3 [place] # (Auto) 0.5 Eos # (Auto) 0.3 Baso # (Auto) 0.0 Abs Immat Gran (auto) 0.01 Imm/Tot Granulo (auto) 0.2 PT INR APTT Sodium 144 Potassium 3.5 Chloride 109 H Carbon Dioxide 26.8 Anion Gap 11.7 BUN 9.0 Creatinine 0.53 L Est GFR ( Amer) >60 Est GFR (Non-Af Amer) >60 BUN/Creatinine Ratio 17.0 Glucose 83 Calcium 8.5 Magnesium 1.8 Total Bilirubin 0.5 AST 18 ALT 20 Alkaline Phosphatase 93 Troponin I High Sens 8.9 8.0 NT-Pro-B Natriuret Pep Total Protein 6.1 L Albumin 3.1 L Globulin 3.0 Albumin/Globulin Ratio 1.0 Lipase Urine Color Lt. yellow Urine Clarity Clear Urine pH 6.0 Ur Specific [place] 1.020 Urine Protein Negative Urine Glucose (UA) Negative Urine Ketones Trace A Urine Occult Blood Negative Urine Nitrite Negative Urine Bilirubin Negative Urine Urobilinogen 1.0 Ur Leukocyte Esterase Small A Urine RBC 0-2 Urine WBC 5-10 A Ur Squamous Epith Cells Few A Urine Crystals None seen Urine Bacteria Trace A Urine Casts None seen Urine Mucus None seen Ur Culture Indicated? Yes-[facility] Urine Opiates Screen Negative Ur Buprenorphine Scrn Negative Ur Oxycodone Screen Negative Urine Methadone Screen Negative Ur Barbiturates Screen Negative U Tricyclic Antidepress Negative Ur Phencyclidine Scrn Negative Ur Amphetamines Screen Negative U Methamphetamines Scrn Negative U Benzodiazepines Scrn Negative Urine Cocaine Screen Negative U Cannabinoids Screen Negative POC Glucose 87 02/09/25 20:00 WBC 7.1 RBC 4.41 Hgb 12.5 Hct 38.5 MCV 87.3 MCH 28.3 MCHC 32.5 RDW 13.2 Plt Count 255 MPV 11.3 Neut % (Auto) 51.7 Lymph % (Auto) 35.5 [place] % (Auto) 7.6 Eos % (Auto) 4.2 Baso % (Auto) 0.7 Neut # (Auto) 3.7 Lymph # (Auto) 2.5 [place] # (Auto) 0.5 Eos # (Auto) 0.3 Baso # (Auto) 0.1 Abs Immat Gran (auto) 0.02 Imm/Tot Granulo (auto) 0.3 PT 10.7 INR 1.01 APTT 25.4 Sodium 145 Potassium 4.0 Chloride 106 Carbon Dioxide 30.0 Anion Gap 13.0 BUN 10.0 Creatinine 0.87 Est GFR ( Amer) >60 Est GFR (Non-Af Amer) >60 BUN/Creatinine Ratio 11.5 Glucose 110 H Calcium 8.9 Magnesium Total Bilirubin 0.5 AST 28 ALT 27 Alkaline Phosphatase 113 Troponin I High Sens 8.1 NT-Pro-B Natriuret Pep 1225.0 H* Total Protein 7.3 Albumin 3.8 Globulin 3.5 Albumin/Globulin Ratio 1.1 Lipase 32.0 Urine Color Urine Clarity Urine pH Ur Specific [place] Urine Protein Urine Glucose (UA) Urine Ketones Urine Occult Blood Urine Nitrite Urine Bilirubin Urine Urobilinogen Ur Leukocyte Esterase Urine RBC Urine WBC Ur Squamous Epith Cells Urine Crystals Urine Bacteria Urine Casts Urine Mucus Ur Culture Indicated? Urine Opiates Screen Ur Buprenorphine Scrn Ur Oxycodone Screen Urine Methadone Screen Ur Barbiturates Screen U Tricyclic Antidepress Ur Phencyclidine Scrn Ur Amphetamines Screen U Methamphetamines Scrn U Benzodiazepines Scrn Urine Cocaine Screen U Cannabinoids Screen POC Glucose Discharge Plan Discharge Disposition: Home, Self-Care Discharge Medications: New aspirin 81 mg Tablet,Chewable 81 mg PO QD Qty: 30 11RF metoprolol tartrate 25 mg Tablet 25 mg PO BID Qty: 60 11RF isosorbide dinitrate 10 mg tablet 10 mg PO BID Qty: 60 11RF Rx Instructions: allow nitrate-free interval of 12-14 hrs per 24-hr period nitroglycerin 0.4 mg Tablet, Sublingual 0.4 mg sublingual Q5M MDD 3 PRN (Reason: Chest Pain) Qty: 20 11RF Continued brimonidine 0.2 % drops 1 drp OPHTHALMIC (EYE) Q8H latanoprost 0.005 % drops 1 drp OPHTHALMIC (EYE) DAILY albuterol sulfate 90 mcg/actuation HFA aerosol inhaler 2 puff INHALATION Q6H PRN (Reason: shortness of breath or wheezing) fluticasone propion-salmeterol 115-21 mcg/actuation HFA aerosol inhaler 2 puff INHALATION Q12H PRN (Reason: shortness of breath) Print Language: Sinhala Forms: Portal Instructions
--- NOTE | 2025-02-10 09:45 | P.HP_ITS ---
HPI H&P: HPI History of Present Illness Chief complaint: CHEST PAINS Narrative: Patient presented to the emergency room with acute onset of pressure type substernal chest pain, no radiation of the pain, no shortness of breath, no syncope, no nausea Patient was given several nitroglycerin in ER and pain has improved, also noted a significant elevated blood pressure at the time of admission to the emergency room I saw patient up in the medical surgical floor, resting comfortably in bed without complaint of chest pain or shortness of breath there is no peripheral edema in her lower extremities that gets worse as the day goes along and is resolved by morning Opioid HPI Opioid Management Most Recent Pain and Opioid Data: Last Pain Scale 4 Today, 10:00 Last Pain Assessment Today, 02:00 Last ED Pain Assessment 02/09/25, 19:25 Last MAR Pain Assessment 02/09/25, 21:21 Last ORT Total Score 1 Today, 01:39 Last ORT Risk Category Low Risk Today, 01:39 Ur Phencyclidine Scrn, (NEGATIVE) Negative Today, 07:45 Review of Systems ROS Status of ROS 10 or more systems reviewed and unremark able except as noted in history and below PFSH PFSH Surgical History (Updated 02/10/25 @ 02:44 by London Singletary, KENNY) Hx of breast reduction, elective ?Z98.890 - Other specified postprocedural states (ICD-10) History of cholecystectomy ?Z90.49 - Acquired absence of other specified parts of digestive tract (ICD- 10) Gastric bypass status for obesity ?Z98.84 - Bariatric surgery status (ICD-10) History of total hysterectomy ?Z90.710 - Acquired absence of both cervix and uterus (ICD-10) Family History (Updated 02/10/25 @ 02:44 by London Singletary, KENNY) Grandfather Myocardial infarct Diabetes Mother Myocardial infarct Hypertension Brother Hypertension Social History (Updated 02/10/25 @ 02:44 by London Singletary RN) Previous occupational history: [employer] In Known occupational exposures/hazards: No Highest level of school completed/degree received: high school graduate Little interest or pleasure in doing things: not at all Feeling down, depressed, or hopeless: not at all Meds Home Medications and Allergies Home Medications ?Medication ?Instructions ?Recorded ?Confirmed ?Type brimonidine 0.2 % eye drops 1 drp ophthalmic (eye) Q8H 01/04/24 02/09/25 History latanoprost 0.005 % eye drops 1 drp ophthalmic (eye) D AILY 01/04/24 02/09/25 History albuterol sulfate 90 mcg/actuation 2 puff inhalation Q 6H PRN 02/09/25 02/09/25 History aerosol inhaler shortness of breath or [place] ing fluticasone propionate 115 2 puff inhalation Q12H PRN 02/09/25 02/09/25 History mcg-salmeterol 21 mcg/actuation shortness of breath HFA inhaler aspirin 81 mg chewable tablet 81 mg PO QD #30 tabs Rx isosorbide dinitrate 10 mg tablet 10 mg PO BID #60 tab s 02/10/25 Rx metoprolol tartrate 25 mg tablet 25 mg PO BID #60 tabs 02/10/25 Rx nitroglycerin 0.4 mg sublingual 0.4 mg sublingual Q5M PRN Chest 02/10/25 Rx tablet Pain #20 tabs Allergies Allergy/AdvReac Type Severity Reaction Status Date / Time morphine Allergy Severe Hives Verified 02/09/25 19:15 Exam Constitutional Vital Signs, click to edit/add: Last Vital Signs Temp 98.2 F 02/10/25 07:36 Pulse 64 02/10/25 08:01 Resp 21 H 02/10/25 08:01 BP 168/100 H 02/10/25 08:01 Pulse Ox 96 02/10/25 08:01 O2 Del Method Room Air 02/10/25 04:32 Documenting provider has reviewed patient's vital signs: yes Common normals: no apparent distress Chest Common normals: inspection of chest normal Respiratory Common normals: normal respiratory effort and no retractions Cardio Common normals: regular rate, regular rhythm and no murmurs GI Common normals: Normal to inspection, nondistended, normoactive bowel sounds present (Obese) Extremity Common normals: normal to inspection, full ROM, normal capillary refill and no clubbing, cyanosis or edema Neuro Common normals: CN's II-XII intact bilaterally and moves all extremities Results Labs Labs: Short CBC 02/09/25 02/10/25 Range/Units 20:00 05:52 WBC 7.1 5.4 (4.0-11.0) 10^3/uL Hgb 12.5 11.3 L (12.0-16.0) g/dL Hct 38.5 34.4 L (36.0-48.0) % Plt Count 255 208 (150-450) 10^3/uL BMP 02/09/25 02/10/25 20:00 05:52 Sodium 145 144 Potassium 4.0 3.5 Chloride 106 109 H Carbon Dioxide 30.0 26.8 BUN 10.0 9.0 Creatinine 0.87 0.53 L Glucose 110 H 83 Calcium 8.9 8.5 Liver Function 02/09/25 02/10/25 Range/Units 20:00 05:52 Total Bilirubin 0.5 0.5 (0.2-1.0) mg/dL AST 28 18 (15-37) U/L ALT 27 20 (14-59) U/L Alkaline Phosphatase 113 93 (46-116) U/L Albumin 3.8 3.1 L (3.4-5.0) g/dL Urine 02/10/25 Range/Units 07:45 Urine Color Lt. yellow (YELLOW) Urine Clarity Clear (CLEAR) Urine pH 6.0 (5.0-9.0) Ur Specific [place] 1.020 (1.005-1.025) Urine Protein Negative (NEG/TRACE) mg/dL Urine Glucose (UA) Negative (NEGATIVE) mg/dL Assessment and Plan Assessment and Plan (1) Chest pain: (2) Hypertensive urgency: Plan Admission findings: Hypertensive urgency leading to chest pain, and to acute systolic and diastolic heart failure Chest pain-[place] ruled out with normal troponins Hypertensive urgency leading to possible acute combined congestive heart failure-chest x-ray is clear lung exam is clear on my exam, but significant elevated BNP on admission is improved this morning with blood pressure improved, start patient on beta-mika and isosorbide dinitrate due to gastric bypass surgery. Also recommend taking a baby aspirin a day with food to protect stomach, if improved later on this morning and no chest pain with ambulation and blood pressure stable she can be discharged to home in improving condition. Medications see list. Follow-up with her PCP next week. Mild protein calorie malnutrition secondary to gastric bypass surgery Obesity-diet management Asthma-continue with home medications Admission status: Patient placed in observation status, highly likely her medical care will only span 1 midnight, with medically necessary treatment spanning 1 midnight she will maintain observational status, if condition changes and she requires prolonged hospitalization and medically necessary treatment will span 2 midnights and she will be changed to inpatient status
[2025-02-10] MEDS: METOPROLOL TARTRATE 25 MG TABLET PO (10:13)
[2025-02-10] MEDS: BRIMONIDINE 0.2% OP (10:29)
[2025-02-10 11:27] LABS: Troponin I High Sensitivity 9.5 pg/mL (4.0-51.3)
--- NOTE | 2025-02-13 16:21 | CM.DCFOLLOWU ---
1st attempt 02/13/25, no answer
== END 2025-02-10 12:45 | disposition home or self-care (01) ==
LOC: ER 02-10 00:22 → MS 02-10 00:46
PROVIDERS: Personal Emergency Response Attendant; Registered Nurse; Admitting Provider Family Medicine; Emergency Provider Emergency Medicine; PCP Internal Medicine; Visit Provider Family Medicine
DX: R07.9 Chest pain, unspecified (principal); Z98.84 Bariatric surgery status; Z90.49 Acquired absence of other specified parts of digestive tract; Z90.710 Acquired absence of both cervix and uterus; I16.0 Hypertensive urgency; I11.0 Hypertensive heart disease with heart failure; I50.41 Acute combined systolic (congestive) and diastolic (congestive) heart failure; E44.1 Mild protein-calorie malnutrition; E66.9 Obesity, unspecified; J45.909 Unspecified asthma, uncomplicated; Z68.39 Body mass index [BMI] 39.0-39.9, adult
CPT/HCPCS: 36415; 71045; 80053; 80307; 81001; 82948; 83690; 83735; 83880; 84484; 85025; 85610; 85730; 87086; 93005; 94761; 96374; 99285; G0378; J3010